=== PATIENT | female | born 1955 | race Caucasian/White ===

== ENCOUNTER 2016-07-20 01:42 | Inpatient (IN) ==
[2016-07-20] MEDS ORDERED: Naloxone 0.4 MG/ML INJ IVP PRN (05:30)
[2016-07-20] MEDS ORDERED: Lacri-Lube 3.5 GM TUBE BOTH EYES PRN (05:32)
[2016-07-20] MEDS ORDERED: Dextrose Gel 15 GM PO PRN ×2 (05:37)
[2016-07-20] MEDS ORDERED: D5% in Water 1,000 ML IV PRN (05:37)
[2016-07-20] MEDS ORDERED: *HR* Dextrose 50 % in Water (Syg) 50 ML SYRINGE IVP PRN (05:37)
--- NOTE | 2016-07-20 05:42 | Internal Med History&Physical ---
Date of Encounter: 07/20/16 Time of Encounter: 05:15 Assessment and Plan (1) Acute respiratory failure Current visit: Yes Status: Acute Requiring endotracheal intubation and mechanical ventilation. Admit to ICU. Consult intensive care team for vent management and ICU management. Acute respiratory failure likely due to pneumonia given patient's fever on presentation. High risk for complications. Sedation with propofol. Qualifiers: Respiratory failure complication: hypoxia Qualified Code(s): J96.01 - Acute respiratory failure with hypoxia (2) Sepsis Current visit: Yes Status: Suspected Patient with severe sepsis likely from pneumonia. Lactic acid elevated. Continue IV antibiotics. Follow blood cultures. Sepsis protocol. Qualifiers: Sepsis type: Pneumococcus Qualified Code(s): A40.3 - Sepsis due to Streptococcus pneumoniae (3) Diabetes mellitus type 2 in obese Current visit: Yes Status: Chronic With elevated blood sugars. Monitor blood sugars every 4 hours. Patient will be nothing by mouth and this time. Sliding-scale insulin. (4) Community acquired pneumonia Current visit: Yes Status: Acute Continue IV antibiotics. Will check respiratory infection panel. We will also send sputum for culture if any obtained. (5) Hypothyroidism Current visit: Yes Status: Chronic Continue levothyroxine Qualifiers: Hypothyroidism type: other Qualified Code(s): E03.8 - Other specified hypothyroidism (6) Hypertension Current visit: Yes Status: Chronic Blood pressure is currently elevated. We will resume home medications. If persistently greater than 160 mmHg, will use intravenous hydralazine to control blood pressure. Qualifiers: Hypertension type: essential hypertension Qualified Code(s): I10 - Essential (primary) hypertension (7) DVT prophylaxis Current visit: Yes Status: Acute With subcutaneous Lovenox Internal Medicine - H&P: HPI Chief complaint: Shortness of breath Admitted From: Emergency Dept Plans for Post Hospital Care: Transfer Halfway Facility History of present illness: Ms. Estevez is a 61 year old female with history of hypertension, hyperlipidemia , diabetes mellitus type 2 who presented to the ER at [place] with complaints of shortness of breath. She was given breathing treatments but her condition did not improve when such she was intubated. She is currently intubated and sedated and unable to answer questions. As such, history has been obtained through review of the ED records. The patient has apparently been having cough and sputum production and was prescribed antibiotics after a visit to the emergency department last week. She did not complain of any chest pain but had worsening of her shortness of breath yesterday evening and so she called EMS and went to the ER. It does not appear that patient has history of any previously diagnosed lung disease but was being evaluated for obstructive sleep apnea. Initial set of vitals in the ER showed a temperature of 100.1, heart rate of 126 /m, respiratory rate of 42/m, blood pressure 165/72 Past Med Surg Social Fam HX - Past Medical History Medical history: cancer, diabetes, hyperlipidemia, hypertension, renal disease, thyroid disease Psychiatric history: no psych history - Past Surgical History Surgical History: colectomy, colostomy, pacemaker/AICD, thyroidectomy - Social History Smoking Status: Former smoker Alcohol use: none Drug use: none Internal Medicine - H&P: Meds Allopurinol [Zyloprim] 100 mg PO DAILY 04/19/16 [History] Aspirin 81 mg PO DAILY 04/19/16 [History] Citalopram Hydrobromide [Celexa] 40 mg PO DAILY 04/19/16 [History] Doxazosin [Cardura] 1 mg PO HS 04/19/16 [History] Furosemide [Lasix] 20 mg PO DAILY 04/19/16 [History] Gabapentin [Neurontin] 800 mg PO TID 04/19/16 [History] Insulin Human Regular [HumuLIN R] 45 unit SQ QID 04/19/16 [History] Levothyroxine [Synthroid] 150 mcg PO DAILY 04/19/16 [History] Metoprolol [Lopressor] 25 mg PO BID 04/19/16 [History] Multivitamin [One Daily Essential] 1 each PO DAILY 04/19/16 [History] Vitamin B Complex Vit C No.4 [Super B Complex] 150 mg PO DAILY 04/19/16 [History ] Vitamin E Acid Succinate [Vitamin E] 400 units PO DAILY 04/19/16 [History] D-Methorphan Hb/P-Epd HCl/Bpm [Bromfed Dm Cough Syrup] 10 ml PO 3-4XD PRN #120 syrup 07/18/16 [Rx] Allergies Penicillins Allergy (Verified 05/21/16 21:55) Hives doxycycline Adverse Reaction (Verified 05/21/16 21:55) Vomiting ROS unobtainable: due to endotracheal tube All Systems PM: A 10-system review of systems was performed and is negative for pertinent findings except as documented above in the HPI. Review of systems: Patient is currently somnolent and sedated and accurate complete review of systems is unable to be obtained at this time - Respiratory Respiratory: dyspnea - Constitutional Vitals: Temp Pulse Resp BP Pulse Ox 98.9 F 83 15 153/67 100 07/20/16 05:00 07/20/16 05:00 07/20/16 05:00 07/20/16 05:00 07/20/16 05:00 General appearance: Present: A&O X 0, obese, severe distress Exam: Patient is currently intubated and sedated - ENT Additional comments: ET tube and OG tube in place - Respiratory Respiratory exam: Present: prolonged expiratory phase. Absent: accessory muscle use, rales, rhonchi, wheezes Additional comments: Coarse breath sounds bilaterally - Cardiovascular Cardiovascular exam: Present: RRR, +S1, +S2. Absent: diastolic murmur, gallop, rubs, systolic murmur - GI/Abdominal GI/Abdominal exam: Present: normal bowel sounds, soft, no peritoneal signs. Absent: distended, tenderness Additional comments: Colostomy bag in place - Extremities Exam Extremities exam: Present: warm, radial pulses palpable and symetrical. Absent : calf tenderness, cyanotic, pedal edema - Neurological Exam Neurological exam: Present: CN II-XII intact, oriented X3, no focal deficits. Absent: pronater drift, facial droop, speech deficit - Skin Skin exam: Present: dry, intact Internal Med - H&P Results - Labs Labs: WBC 10.9, hemoglobin 11, platelets 290, sodium 141, lactic acid 2.3, BUN 14, creatinine 0.94 - Impressions Chest x-ray shows cardiomegaly. No infiltrates concerning for pneumonia/ pulmonary edema - Attending Attestation This document has been at least partially created by [employer] recognition technology by Dr. Ferguson. Errors in grammar, wording or other phrases may exist. If errors are found after the documentation is signed, they will be addressed individually in the addendum section of this document when appropriate. Critical Care Time Critical Care Time: Yes Total Critical Care Time: 35 Attestation: This patient has a high probability of sudden, clinically significant deterioration, which requires the highest level of physician preparedness to intervene urgently. I managed/supervised life or organ supporting interventions that required frequent physician assessment. I devoted my full attention to the direct care of this patient for the amount of time indicated below. Time I spent with family or surrogate(s) is included only if the patient was incapable of providing the necessary information or participating in medical decision-making.
[2016-07-20] MEDS: 0.9 % Sodium Chloride 1,000 ML IVC SCH ×2 (05:48→10:09)
[2016-07-20 06:03] LABS: Basophils % 0.1 %; Hematocrit 36.1 % (35.3-44.9); Hemoglobin 10.5 g/dL (11.5-15.4); Immature Granulocytes % 0.4 % (0-4); Lymphocytes # 0.4 K/mcL (0.6-4.6); Lymphocytes % 3.2 %; Mean Corpuscular HGB Conc 29.1 g/dL (31.6-35.5); Mean Corpuscular Hemoglobin 25.6 pg (28.0-33.3); Mean Platelet Volume 9.1 fL (9.4-12.4); Monocytes # 0.4 K/mcL (0.0-1.3); Monocytes % 2.9 %; Neutrophils # 11.9 K/mcL (1.6-8.9); Platelet Count 262 K/mcL (140-400); Red Cell Distribution Width 15.9 % (11.5-14.5); Segmented Neutrophils % 93.4 %
[2016-07-20 06:19] LABS: ABG Base Excess 5.2 mEq/L (-2.0 to 3.0); ABG HCO3 33.5 mEQ/L (21-27); ABG Oxygen Saturation 96 % (95-98); ABG PCO2 68 mmHg (35-45); ABG PO2 92 mmHg (85-104); ABG TCO2 35.6 mEq/L (20-26)
[2016-07-20 06:27] LABS: BUN/Creatinine Ratio 15 (6-26); Blood Urea Nitrogen 15 mg/dL (7-20); Calcium 8.8 mg/dL (8.6-10.8); Carbon Dioxide 24 mEq/L (19-29); Chloride 101 mEq/L (98-109); Glucose 260 mg/dL (70-99); Osmolality,Calculated 294 (280-300); Potassium 4.8 mEq/L (3.5-4.5); Sodium 137 mEq/L (136-145); eGFR For African Americans > 60 (> 60); eGFR For Non-African Americans 56 (> 60)
[2016-07-20 06:28] LABS: Blood Gas FiO2 50 %
[2016-07-20] MEDS ORDERED: *HR* Enoxaparin 40 MG/0.4 ML SYRINGE SQ SCH (06:56)
[2016-07-20] MEDS ORDERED: Insulin LISPRO 300 UNITS/3 ML VIAL SQ SCH ×4 (07:30→21:00)
--- NOTE | 2016-07-20 08:01 | Pulmonology Consult Note ---
<Chencho Hernandez - Last Filed: 07/20/16 11:33> Date of Encounter: 07/20/16 Time of Encounter: 07:40 Assessment and Plan (1) Acute respiratory failure Current Visit: Yes Status: Acute ARF likely 2/2 to CAP and influenza virus. Continue IV antibiotic -Levaquin (d1) Continue Tamiflu (d1) Sputum culture pending Respiratory viral panel - influenza A positive Qualifiers: Respiratory failure complication: hypoxia Qualified Code(s): J96.01 - Acute respiratory failure with hypoxia (2) Community acquired pneumonia Current Visit: Yes Status: Acute See plan above. (3) Influenza A Current Visit: Yes Status: Acute Positive for Influenza A subtype H3. Started Tamiflu. (4) Diabetes mellitus type 2 in obese Current Visit: Yes Status: Chronic BG running in the 200-300s. Accuchecks Q1 Initiated Insulin drip. (5) Hypertension Current Visit: Yes Status: Chronic Improving SBP 153->128 Lopressor 25mg BID Hydralazine 10mg Q6H prn Qualifiers: Hypertension type: essential hypertension Qualified Code(s): I10 - Essential (primary) hypertension (6) Hypothyroidism Current Visit: Yes Status: Chronic Hx of thyroidectomy Levothyroxine 150mcg daily Qualifiers: Hypothyroidism type: other Qualified Code(s): E03.8 - Other specified hypothyroidism (7) DVT prophylaxis Current Visit: Yes Status: Acute Lovenox 40mg daily History of Present Illness Consult date: 07/20/16 Requesting physician: Reggie Ferguson Reason for consult: dyspnea, pneumonia Chief complaint: Dyspnea History of present illness: Ms. Estevez is a 61 year old female with history of hypertension, hyperlipidemia , diabetes mellitus type 2 who presented to the ER at [place] on 07/18/16 and with complaints of shortness of breath. The patient was reported to have been having yellow sputum production; no chest pain but had worsening shortness of breath warranting her to EMS. Patient did not respond with Duonebs and dyspnea continued to worsen, patient was intubated prior to transfer. She is currently intubated and sedated and unable to answer questions. As such, history has been obtained through review of the ED records. Of note, patient's mother is inpatient currently and would be available if needed for additional history. Past Med Surg Social Fam HX - Past Medical History Source: old records reviewed Medical history: cancer, diabetes, hyperlipidemia, hypertension, renal disease, thyroid disease Psychiatric history: no psych history - Past Surgical History Surgical History: colectomy, colostomy, pacemaker/AICD, thyroidectomy - Social History Smoking Status: Former smoker Alcohol use: none Drug use: none Medications and Allergies Allopurinol [Zyloprim] 100 mg PO DAILY 04/19/16 [History] Aspirin 81 mg PO DAILY 04/19/16 [History] Citalopram Hydrobromide [Celexa] 40 mg PO DAILY 04/19/16 [History] Doxazosin [Cardura] 1 mg PO HS 04/19/16 [History] Furosemide [Lasix] 20 mg PO DAILY 04/19/16 [History] Gabapentin [Neurontin] 800 mg PO TID 04/19/16 [History] Insulin Human Regular [HumuLIN R] 45 unit SQ QID 04/19/16 [History] Levothyroxine [Synthroid] 150 mcg PO DAILY 04/19/16 [History] Metoprolol [Lopressor] 25 mg PO BID 04/19/16 [History] Multivitamin [One Daily Essential] 1 each PO DAILY 04/19/16 [History] Vitamin B Complex Vit C No.4 [Super B Complex] 150 mg PO DAILY 04/19/16 [History ] Vitamin E Acid Succinate [Vitamin E] 400 units PO DAILY 04/19/16 [History] D-Methorphan Hb/P-Epd HCl/Bpm [Bromfed Dm Cough Syrup] 10 ml PO 3-4XD PRN #120 syrup 07/18/16 [Rx] Atorvastatin [Lipitor] 40 mg PO HS 07/20/16 [History] Allergies Penicillins Allergy (Verified 05/21/16 21:55) Hives doxycycline Adverse Reaction (Verified 05/21/16 21:55) Vomiting ROS unobtainable: due to endotracheal tube All Systems: A 10-system review of systems was performed and is negative for pertinent findings except as documented above in the HPI. Physical Examination Vital Signs: Vital Signs, Last 4 Hours Temp Pulse Resp BP Pulse Ox 07/20/16 06:20 16 98 07/20/16 06:00 78 15 152/71 98 07/20/16 05:00 98.9 F 83 15 153/67 100 07/20/16 04:39 21 99 07/20/16 04:30 98.9 F 92 16 153/69 99 General appearance: no acute distress, other (sedated) Eyes: nonicteric ENT: oropharynx moist Neck: supple Effort: other (mechanical ventilation) Inspection: normal Auscultation: bilateral: rhonchi (coarse breath sounds bilaterally) Cardiovascular: other (distant heart sounds) Gastrointestinal: normoactive bowel sounds, soft, non-tender, non-distended, other (Left sided colostomy with minimal brown stool present in bag.) Integumentary: normal Extremities: no cyanosis, no edema, no clubbing, pink and warm, pulses normal ( capillary refill <2 sec) Musculoskeletal: no deformities unable to assess due to mental status (sedated on mechanical vent) Ventilator Settings Ventilator Settings: Ventilator Settings, Last 8 Hours Ventilator Mode VC+ Ventilator Mode VC+ Ventilator Mode VC+ Ventilator Mode VC+ Ventilator Tidal Volume 500 Setting Ventilator Tidal Volume 500 Setting Ventilator Tidal Volume 500 Setting Ventilator Tidal Volume 500 Setting Ventilator Respiratory Rate 12 Setting Ventilator Respiratory Rate 12 Setting Ventilator Respiratory Rate 12 Setting Ventilator Respiratory Rate 12 Setting Actual Respiratory Rate 16 Actual Respiratory Rate 16 Actual Respiratory Rate 16 Positive End Expiratory 5 Pressure Positive End Expiratory 5 Pressure Positive End Expiratory 5 Pressure Positive End Expiratory 5 Pressure Peak Inspiratory Airway 31 Pressure Peak Inspiratory Airway 35 Pressure Peak Inspiratory Airway 35 Pressure Results - Laboratory Findings CBC and BMP: 07/20/16 05:48 07/20/16 05:48 ABG ABG pH 7.30 pH Units (7.32-7.45) L 07/20/16 06:11 ABG pCO2 68 mmHg (35-45) H 07/20/16 06:11 ABG pO2 92 mmHg (85-104) 07/20/16 06:11 ABG O2 Saturation 96 % (95-98) 07/20/16 06:11 Abnormal lab findings: Abnormal lab results WBC 12.7 K/mcL (4.3-11.1) H 07/20/16 05:48 Hgb 10.5 g/dL (11.5-15.4) L 07/20/16 05:48 MCH 25.6 pg (28.0-33.3) L 07/20/16 05:48 MCHC 29.1 g/dL (31.6-35.5) L 07/20/16 05:48 RDW 15.9 % (11.5-14.5) H 07/20/16 05:48 MPV 9.1 fL (9.4-12.4) L 07/20/16 05:48 Neutrophils # 11.9 K/mcL (1.6-8.9) H 07/20/16 05:48 Lymphocytes # 0.4 K/mcL (0.6-4.6) L 07/20/16 05:48 ABG pH 7.30 pH Units (7.32-7.45) L 07/20/16 06:11 ABG pCO2 68 mmHg (35-45) H 07/20/16 06:11 ABG HCO3 33.5 mEQ/L (21-27) H 07/20/16 06:11 ABG Total CO2 35.6 mEq/L (20-26) H 07/20/16 06:11 ABG Base Excess 5.2 mEq/L (-2.0 to 3.0) H 07/20/16 06:11 Potassium 4.8 mEq/L (3.5-4.5) H 07/20/16 05:48 Est GFR (Non-Af Amer) 56 (> 60) L 07/20/16 05:48 Glucose 260 mg/dL (70-99) H 07/20/16 05:48 POC Glucose 310 (58-89) H 07/20/16 07:51 - Clinical Findings Intake & Output: Intake & Output 07/19/16 07/19/16 07/20/16 15:59 23:59 07:59 Intake Total 100 / 100 Output Total 300 / 300 Balance -200 / -200 Weight 139.4 kg Consult Discharge Plan - Plan Referrals: Cedric Orlando, [employer] FURNACE INSTALLER [Primary Care Provider] - <Vijaya Verma - Last Filed: 07/20/16 12:36> Date of Encounter: 07/20/16 All Systems: A 10-system review of systems was performed and is negative for pertinent findings except as documented above in the HPI. Physical Examination Vital Signs: Vital Signs, Last 4 Hours Temp Pulse Resp BP Pulse Ox 07/20/16 11:24 98 F 07/20/16 11:23 14 120/51 99 07/20/16 10:30 57 15 117/51 100 07/20/16 09:30 62 15 120/52 99 Ventilator Settings Ventilator Settings: Ventilator Settings, Last 8 Hours Ventilator Mode VC+ Ventilator Mode VC+ Ventilator Mode VC+ Ventilator Mode VC+ Ventilator Mode VC+ Ventilator Mode VC+ Ventilator Tidal Volume 500 Setting Ventilator Tidal Volume 500 Setting Ventilator Tidal Volume 500 Setting Ventilator Tidal Volume 500 Setting Ventilator Tidal Volume 500 Setting Ventilator Tidal Volume 500 Setting Ventilator Respiratory Rate 14 Setting Ventilator Respiratory Rate 14 Setting Ventilator Respiratory Rate 14 Setting Ventilator Respiratory Rate 12 Setting Ventilator Respiratory Rate 12 Setting Ventilator Respiratory Rate 12 Setting Actual Respiratory Rate 14 Actual Respiratory Rate 15 Actual Respiratory Rate 16 Actual Respiratory Rate 16 Actual Respiratory Rate 16 Positive End Expiratory 5 Pressure Positive End Expiratory 5 Pressure Positive End Expiratory 5 Pressure Positive End Expiratory 5 Pressure Positive End Expiratory 5 Pressure Positive End Expiratory 5 Pressure Peak Inspiratory Airway 33 Pressure Peak Inspiratory Airway 32 Pressure Peak Inspiratory Airway 30 Pressure Peak Inspiratory Airway 33 Pressure Peak Inspiratory Airway 33 Pressure Peak Inspiratory Airway 34 Pressure Peak Inspiratory Airway 31 Pressure Peak Inspiratory Airway 35 Pressure Results - Laboratory Findings CBC and BMP: 07/20/16 05:48 07/20/16 05:48 ABG ABG pH 7.30 pH Units (7.32-7.45) L 07/20/16 06:11 ABG pCO2 68 mmHg (35-45) H 07/20/16 06:11 ABG pO2 92 mmHg (85-104) 07/20/16 06:11 ABG O2 Saturation 96 % (95-98) 07/20/16 06:11 Abnormal lab findings: Abnormal lab results WBC 12.7 K/mcL (4.3-11.1) H 07/20/16 05:48 Hgb 10.5 g/dL (11.5-15.4) L 07/20/16 05:48 MCH 25.6 pg (28.0-33.3) L 07/20/16 05:48 MCHC 29.1 g/dL (31.6-35.5) L 07/20/16 05:48 RDW 15.9 % (11.5-14.5) H 07/20/16 05:48 MPV 9.1 fL (9.4-12.4) L 07/20/16 05:48 Neutrophils # 11.9 K/mcL (1.6-8.9) H 07/20/16 05:48 Lymphocytes # 0.4 K/mcL (0.6-4.6) L 07/20/16 05:48 ABG pH 7.30 pH Units (7.32-7.45) L 07/20/16 06:11 ABG pCO2 68 mmHg (35-45) H 07/20/16 06:11 ABG HCO3 33.5 mEQ/L (21-27) H 07/20/16 06:11 ABG Total CO2 35.6 mEq/L (20-26) H 07/20/16 06:11 ABG Base Excess 5.2 mEq/L (-2.0 to 3.0) H 07/20/16 06:11 Potassium 4.8 mEq/L (3.5-4.5) H 07/20/16 05:48 Est GFR (Non-Af Amer) 56 (> 60) L 07/20/16 05:48 Glucose 260 mg/dL (70-99) H 07/20/16 05:48 POC Glucose 331 (58-89) H 07/20/16 11:22 Influenza A (H3) PCR DETECTED (Not Detect) A 07/20/16 08:20 - Clinical Findings Intake & Output: Intake & Output 07/19/16 07/20/16 07/20/16 23:59 07:59 15:59 Intake Total 100 / 100 560 / 560 Output Total 300 / 300 150 / 150 Balance -200 / -200 410 / 410 Weight 139.4 kg - Attending Attestation I examined this patient and my medical decision-making was reviewed with the POWERHOUSE LABORER/PA/Advanced Practice Nurse/Resident Physician. I agree with the documented findings, disposition and treatment plan as described except to the extent set forth below. Patient seen and examined. Labs, radiology, chart personally reviewed. 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 Wean off FIO2 and ordered respiratory panel which showed influenza positive and suspect also with component of pulmonary edema. Patient will remain on the vent today and hopefully can do SBT in next 1-2 days depend on the progress. Patient will ve on VC+ vent mode for more comfort and follow up on the ABG. Cardiovascular: Patient has significant cardiac history and if patient does not have recent echocardiogram was ordered it and check cardiac enzymes. GI: Nutrition per dietary and GI prophylaxis per routine Heme: DVT prophylaxis per routine ID: Continue antibiotics and plan to de-escalation. Patient will need Tamiflu treatment. Renal; urine out put and renal funtion reviewed. Diuresis as tolerated Endorcine: blood glucose is monitored. Start insulin drip for tight glycemic control Lines: all lines checked and no evidence of infections Skin: skin care to prevent pressure ulcers per nursing routine care I spent 35 min of Critical Care time with this patient. It involved decision making of high complexity to assess, manipulate, and support vital organ system failure and/or to prevent further life threatening deterioration of the patient' s condition. The time involved in the performance of separately reportable procedures was not counted toward critical care time.
[2016-07-20] MEDS: Levofloxacin 750 MG/150 ML 750 MG/150 ML BAG IVPB SCH (08:29)
[2016-07-20] MEDS: Aspirin 81 MG TAB.CHEW PO SCH (08:31)
[2016-07-20] MEDS: Chlorhexidine Rinse 15 ML MOUTHWASH MM SCH ×2 (08:31→20:13)
[2016-07-20] MEDS: Pantoprazole 40 MG VIAL IVPB SCH (08:31)
[2016-07-20] MEDS: Lacri-Lube 3.5 GM TUBE BOTH EYES SCH ×5 (08:45→22:20)
[2016-07-20 09:56] LABS: Adenovirus Not Detected (Not Detect); Bordetella Pertussis Not Detected (Not Detect); Chlamydophila pneumoniae Not Detected (Not Detect); Coronavirus 229E Not Detected (Not Detect); Coronavirus HKU1 Not Detected (Not Detect); Coronavirus NL63 Not Detected (Not Detect); Coronavirus OC43 Not Detected (Not Detect); Human Metapneumovirus Not Detected (Not Detect); Human Rhinovirus/Enterovirus Not Detected (Not Detect); Influenza A Subtype 2009 H1 Not Detected (Not Detect); Influenza A Untypeable Not Detected (Not Detect); Influenza B Not Detected (Not Detect); Mycoplasma pneumoniae Not Detected (Not Detect); Parainfluenza Virus 1 Not Detected (Not Detect); Parainfluenza Virus 2 Not Detected (Not Detect); Parainfluenza Virus 3 Not Detected (Not Detect); Parainfluenza Virus 4 Not Detected (Not Detect); Respiratory Syncytial Virus Not Detected (Not Detect)
[2016-07-20] MEDS: Insulin Human Regular 100 UNIT in 0.9 % Sodium Chloride 100 ML IVC SCH ×2 (13:05→20:32)
[2016-07-20] MEDS: Oseltamivir 6 MG/ML UDC PO SCH ×2 (14:22→20:54)
[2016-07-20] MEDS ORDERED: Furosemide 40 MG/4 ML VIAL IVP ONE (15:01)
--- NOTE | 2016-07-20 15:44 | Cardiology Consult Note ---
Date of Encounter: 07/20/16 Time of Encounter: 15:00 Assessment and Plan (1) Acute respiratory failure Current Visit: Yes Status: Acute Per cardiology: -Patient presented to [facility] with respiratory distress. Patient subsequently intubated and transferred to [facility]. -Currently intubated and sedated with diprivan drip. -Ventilator settings: CMV 14, TV 500, FiO2 45%, and PEEP 5. -SpO2 currently 99%. -Latest ABG: pH 7.3, pCO2 68, HCO3 33.5, pO2 92. -Management per primary service. -May be possible contributing factor to elevated troponin. (GOLDY) Qualifiers: Respiratory failure complication: hypoxia Qualified Code(s): J96.01 - Acute respiratory failure with hypoxia (2) Influenza A Current Visit: Yes Status: Acute Per cardiology: -Patient influenza positive. -Currently on tamiflu. -Currently intubated and sedated. -Management per primary service. -May be possible contributing factor to elevated troponin. (GOLDY) (3) Community acquired pneumonia Current Visit: Yes Status: Acute Per cardiology: -Chest x-ray with bilateral perihilar opacities. -On antibiotics. Currently intubated and sedated. -Managment per primary service. -May be contributing factor to elevated troponin. (GOLDY) (4) Elevated troponin Current Visit: Yes Status: Acute Per cardiology: -Troponin at [facility] noted to be 0.03. Most recent troponin 0.97. -BNP at [facility] 181, most recent 754. -Echocardiogram 06/11/16 LVEF 60-65%, moderate left ventricular hypertrophy, moderate left ventricular diastolic dysfunction, mild aortic stenosis with mean gradiant 14mmHG, sever pulmonary hypertension. -ECG with sinus rhythm, HR 61 with T wave inversion. -Will repeat troponin 6 hours after last troponin (ordered per primary service) -Will repeat limited echocardiogram (ordered per primary service) -Will change lovenox to weight based (ordered per primary service) -IV fluids stopped (ordered per primary service) -Further recommedations once repeat troponin and echocardiogram are resulted. ( GOLDY). Discussion w patient/family: The assessment and plan as outlined above was discussed with the patient and/or family members who expressed understanding and agreement. All questions were answered. Thank you for involving us in the care of your patient. Please call with any questions. Patient's mother is inpatient. Mother is next of kin for patient. Mother updated. Seen and examined with NAIN Brown. Discussed and reviewed with . History of Present Illness Consult date: 07/20/16 Requesting physician: Chencho Hernandez Consult reason: elevated troponin Chief complaint: shortness of breath History of present illness: Ms. Estevez is a 61 year old female who presented to [facility] ER with complaints of shortness of breath. While there, patient went into respiratory distress and was subsequently intubated and sent to [facility] ICU. Patient influenza A positive. Of note, patient's mother is currently hospitalized with influenza. Patient lives with her mother. Patient currently intubated and sedated. Patient arousable to tactile stimuli. (GOLDY) Past Med Surg Social Fam HX - Past Medical History Source: unable to obtain, old records reviewed, other (Unable to review with patient due to intubated and sedated. No family at bedside. ) Medical history: cancer, diabetes, hyperlipidemia, hypertension, renal disease, thyroid disease Psychiatric history: no psych history - Past Surgical History Surgical History: colectomy, colostomy, pacemaker/AICD, thyroidectomy - Social History Smoking Status: Former smoker Alcohol use: none Drug use: none Medications and Allergies Allopurinol [Zyloprim] 100 mg PO DAILY 04/19/16 [History] Aspirin 81 mg PO DAILY 04/19/16 [History] Citalopram Hydrobromide [Celexa] 40 mg PO DAILY 04/19/16 [History] Doxazosin [Cardura] 1 mg PO HS 04/19/16 [History] Furosemide [Lasix] 20 mg PO DAILY 04/19/16 [History] Gabapentin [Neurontin] 800 mg PO TID 04/19/16 [History] Insulin Human Regular [HumuLIN R] 45 unit SQ QID 04/19/16 [History] Levothyroxine [Synthroid] 150 mcg PO DAILY 04/19/16 [History] Metoprolol [Lopressor] 25 mg PO BID 04/19/16 [History] Multivitamin [One Daily Essential] 1 each PO DAILY 04/19/16 [History] Vitamin B Complex Vit C No.4 [Super B Complex] 150 mg PO DAILY 04/19/16 [History ] Vitamin E Acid Succinate [Vitamin E] 400 units PO DAILY 04/19/16 [History] D-Methorphan Hb/P-Epd HCl/Bpm [Bromfed Dm Cough Syrup] 10 ml PO 3-4XD PRN #120 syrup 07/18/16 [Rx] Atorvastatin [Lipitor] 40 mg PO HS 07/20/16 [History] Allergies Penicillins Allergy (Verified 05/21/16 21:55) Hives doxycycline Adverse Reaction (Verified 05/21/16 21:55) Vomiting ROS unobtainable: due to endotracheal tube, due to mental status (Sedated) All Systems Review: A 10-system review of systems was performed and is negative for pertinent findings except as documented above in the HPI. Physical Examination Vital Signs, Last 4 Hours Temp Pulse Resp BP Pulse Ox 07/20/16 15:30 98 F 07/20/16 15:15 56 14 151/78 99 07/20/16 14:20 56 15 132/60 99 07/20/16 13:56 14 127/55 9 L 07/20/16 13:15 58 14 119/84 99 07/20/16 12:30 54 14 123/53 100 Vital Signs Intake and Output Patient Weight 07/20/16 23:59 Weight 139.4 kg General: Other (Sedated) HEENT: Atraumatic, Normocephaly Neck: No JVD, Normal carotid pulses Cardiac: Reg Rate and Rhythm, Normal S1 and S2, No Murmur Lungs: Other (Rhonchi noted in bilateral lungs. Patient intubated. CMV 14, TV 500, FiO2 50%, PEEP 5. ) Neuro: Other (Sedated. Arousable to tactile stimuli. ) Abdomen: Soft Skin: No rashes noted on visualized skin Extremities: No Clubbing, No Cyanosis, Normal Pulses, Other (Mild bilateral non- pitting edema. ) Results 07/20/16 05:48 07/20/16 05:48 Lab Results 07/20/16 07/20/16 07/20/16 05:48 05:48 13:08 WBC 12.7 H Hgb 10.5 L Hct 36.1 Plt Count 262 Sodium 137 Potassium 4.8 H Chloride 101 Carbon Dioxide 24 BUN 15 Creatinine 1.01 Glucose 260 H Calcium 8.8 Troponin I 0.97 H* B-Natriuretic Peptide 07/20/16 13:08 WBC Hgb Hct Plt Count Sodium Potassium Chloride Carbon Dioxide BUN Creatinine Glucose Calcium Troponin I B-Natriuretic Peptide 754 H ITS Impressions Chest X-Ray 07/20/16 06:03 IMPRESSION: Pulmonary edema pattern without substantial change. D/ / Ben Esteves MD / Ben Esteves MD Interpreting Provider: Ben Esteves MD Active Medications Allopurinol (Zyloprim) 100 mg PO DAILY MERLE Stop: 01/19/17 09:01 Last Admin: 07/20/16 08:31 Dose: 100 mg Artificial Tears (Lacri-Lube) 1 appl BOTH EYES Q4HR MERLE PRN Reason: Protocol Stop: 01/19/17 08:01 Last Admin: 07/20/16 13:05 Dose: 1 appl Artificial Tears (Lacri-Lube) 1 appl BOTH EYES Q2HR PRN; Protocol PRN Reason: Dry Eyes Stop: 01/19/17 05:33 Aspirin (Aspirin) 81 mg PO DAILY MERLE Stop: 01/19/17 09:01 Last Admin: 07/20/16 08:31 Dose: 81 mg Chlorhexidine Gluconate (Chlorhexidine Rinse) 15 ml MM BID MERLE Stop: 01/19/17 09:01 Last Admin: 07/20/16 08:31 Dose: 15 ml Citalopram Hydrobromide (Celexa) 40 mg PO DAILY MERLE Stop: 01/19/17 09:01 Last Admin: 07/20/16 08:31 Dose: 40 mg Dextrose/Water (Dextrose 50% (Syg)) 25 ml IVP AD PRN PRN Reason: Hypoglycemia Stop: 01/19/17 05:38 Doxazosin Mesylate (Cardura) 1 mg PO HS MERLE Stop: 01/19/17 21:01 Enoxaparin Sodium (Lovenox) 140 mg SQ Q12HCO MERLE PRN Reason: Protocol Stop: 01/19/17 18:01 Glucagon (Glucagen) 1 mg IM ONCE PRN PRN Reason: Hypoglycemia Stop: 01/19/17 05:38 Glucose (Gluctose) 15 gm PO ONCE PRN PRN Reason: Hypoglycemia Stop: 01/19/17 05:38 Glucose (Gluctose) 30 gm PO ONCE PRN PRN Reason: Hypoglycemia Stop: 01/19/17 05:38 Hydralazine HCl (Hydralazine) 10 mg IVP Q6HR PRN PRN Reason: Hypertension Stop: 01/19/17 05:40 Dextrose (Dextrose 5%) 1,000 mls @ 100 mls/hr IV CONT PRN PRN Reason: HYPOGLYCEMIA Stop: 01/19/17 05:38 Propofol (Diprivan) 1,000 mg in 100 mls @ 33.456 mls/hr IVC .Q3H MERLE; 40 MCG/KG /MIN PRN Reason: Protocol Stop: 01/19/17 05:46 Last Admin: 07/20/16 13:15 Dose: 40 mcg/kg/min, 33.456 mls/hr Levofloxacin/Dextrose (Levaquin 750mg/150 Ml) 750 mg in 150 mls @ 100 mls/hr IVPB DAILY MERLE PRN Reason: Protocol Stop: 01/19/17 09:01 Last Admin: 07/20/16 08:29 Dose: 100 mls/hr Insulin Human Regular 100 unit (/ Sodium Chloride) 101 mls @ 7.87 mls/hr IVC CONT MERLE; 7.8 UNIT/HR PRN Reason: Protocol Stop: 01/19/17 11:31 Last Titration: 07/20/16 15:22 Dose: 12.2 unit/hr, 12.32 mls/hr Levothyroxine Sodium (Synthroid) 150 mcg PO DAILY MERLE Stop: 01/19/17 09:01 Last Admin: 07/20/16 08:31 Dose: 150 mcg Metoprolol Tartrate (Lopressor) 25 mg PO BID MERLE Stop: 01/19/17 09:01 Last Admin: 07/20/16 08:31 Dose: 25 mg Naloxone HCl (Narcan) 0.4 mg IVP Q2MIN PRN PRN Reason: Opioid Reversal Stop: 01/19/17 05:31 Oseltamivir Phosphate (Tamiflu Susp) 75 mg PO BID [facility] Stop: 07/24/16 21:01 Last Admin: 07/20/16 14:22 Dose: 75 mg Pantoprazole Sodium (Protonix) 40 mg IVPB DAILY MERLE Stop: 01/19/17 09:01 Last Admin: 07/20/16 08:31 Dose: 40 mg - Imaging and Cardiology Chest Xray: report reviewed Echo: pending - EKG Interpretation EKG results cardiology: personally reviewed (ECG with sinus rhythm, HR 60. T wave inversions noted.), other (Telemetry reviewed with average heart rate 65, paced rhythm. Occasional PVCs noted.) Consult Discharge Plan - Plan Referrals: Cedric Orlando, NAIN [Primary Care Provider] -
[2016-07-20] MEDS ORDERED: Perflutren Lipid Microsphere 1.3 ML in 0.9 % Sodium Chloride 8.7 ML IVP ONE (16:41)
[2016-07-20] MEDS: *HR* Enoxaparin 150 MG/ML SYRINGE SQ SCH (17:38)
--- NOTE | 2016-07-20 20:46 | ECHO - Doppler Report ---
Limited Echo with Imaging Enhancement Agent Name: Anjali Estevez Date of Study: 07/20/2016 Date: 1955 Ht: 68.0 in Medical Record#: [id number] Age: 61 Wt: 307.0 lb Gender: Female BSA: 2.45 Order #: [id number] Location: [facility] Room #: IC10 Reading Physician: Rolan Graves MD, [facility] Carton Marker Machine: Mame Woody RVT Ordering Physician: Adan Verdin DO Primary Physician: Bri Orlando CNP Indications: ACS, Heart function Impressions: LVEF 60-65%. Mild concentric left ventricular hypertrophy. Left Ventricular Wall Motion: Rest Echo Findings All wall segments showed normal motion. Findings: Aorta * Normally sized aortic root. Pericardium * The pericardium appears normal. Left Ventricle * Mild concentric left ventricular hypertrophy. * LVEF 60-65%. ECG Findings * Normal sinus rhythm. Left Atrium * Moderately dilated left atrium. Interatrial Septum * Interatrial septum not well evaluated. Right Atrium * Right atrium is not well visualized. Study Quality * Technically sub-optimal due to body habitus. History Hypertension Diabetes History of CAD/PTCA Congestive Heart Failure Pacer/ICD Implant Valvular Disease 06-11-16 a Previous Echo was performed. Contrast: Definity 1.3 ml in 8.7 ml of saline 2 ml. Measurements: BP: 151/ 78 2D Normal Values RVIDd: 3.40 cm <2.7 cm IVSd: 1.60 cm 0.6 - 1.0 cm LVIDd: 4.90 cm 3.7 - 5.6 cm LVPWd: 1.50 cm 0.6 - 1.1 cm LVIDs: 3.40 cm 1.5 - 3.6 cm AO: 2.90 cm < 4.0 cm LA: 4.80 cm 2.0 - 4.0cm %FS: 30.60 cm >25 % LA volume: Updated by Rolan Graves MD, [facility] on 07/20/2016 8:36:51 PM electronically signed on 07/20/2016 8:42:52 PM with status of Final Wall Motion Garcia: 1=Normal, 2=Hypokinesis, 3=Akinesis, 4=Dyskinesis, 5=Aneurysmal, 6=Hyperkinetic, X=Not Visualized (Blank)=Missing
[2016-07-21 02:40] LABS: Basophils % 0.1 %; Hematocrit 32.1 % (35.3-44.9); Hemoglobin 9.6 g/dL (11.5-15.4); Immature Granulocytes % 0.4 % (0-4); Immature Platelets 1.6 % (1.1-6.1); Lymphocytes # 0.9 K/mcL (0.6-4.6); Lymphocytes % 7.1 %; Mean Corpuscular HGB Conc 29.9 g/dL (31.6-35.5); Mean Platelet Volume 9.2 fL (9.4-12.4); Monocytes # 0.7 K/mcL (0.0-1.3); Monocytes % 6.2 %; Neutrophils # 10.3 K/mcL (1.6-8.9); Platelet Count 268 K/mcL (140-400); Red Blood Count 3.69 M/mcL (3.82-4.97); Red Cell Distribution Width 15.9 % (11.5-14.5); Segmented Neutrophils % 86.2 %
[2016-07-21 02:50] LABS: BUN/Creatinine Ratio 27 (6-26); Blood Urea Nitrogen 23 mg/dL (7-20); Calcium 8.7 mg/dL (8.6-10.8); Carbon Dioxide 28 mEq/L (19-29); Chloride 103 mEq/L (98-109); Glucose 153 mg/dL (70-99); Osmolality,Calculated 297 (280-300); Potassium 4.1 mEq/L (3.5-4.5); Sodium 140 mEq/L (136-145); eGFR For African Americans > 60 (> 60); eGFR For Non-African Americans > 60 (> 60)
[2016-07-21] MEDS: Lacri-Lube 3.5 GM TUBE BOTH EYES SCH ×5 (03:24→20:06)
[2016-07-21] MEDS: *HR* Enoxaparin 150 MG/ML SYRINGE SQ SCH ×2 (04:52→18:04)
[2016-07-21 05:18] LABS: ABG Base Excess 9.9 mEq/L (-2.0 to 3.0); ABG HCO3 36.5 mEQ/L (21-27); ABG Oxygen Saturation 99 % (95-98); ABG PCO2 59 mmHg (35-45); ABG PO2 118 mmHg (85-104); ABG TCO2 38.3 mEq/L (20-26); Blood Gas FiO2 45 %
[2016-07-21] MEDS ORDERED: Ipratropium/Albuterol Neb 3 ML ONE (08:38)
[2016-07-21] MEDS: Ipratropium/Albuterol Neb 3 ML IH SCH ×4 (08:39→20:31)
--- NOTE | 2016-07-21 08:53 | Pulmonology Progress Note ---
<Vijaya Verma M - Last Filed: 07/21/16 10:35> Date of Encounter: 07/21/16 Objective PUL Vital signs: Last Vital Signs Temp 99.8 F H 07/21/16 07:10 Pulse 72 07/21/16 07:30 Resp 27 07/21/16 09:46 BP 149/62 07/21/16 08:05 Pulse Ox 96 07/21/16 09:46 Ventilator Settings Ventilator Settings: Ventilator Settings, Last 8 Hours Ventilator Mode CPAP Ventilator Mode CPAP Ventilator Mode VC+ Ventilator Mode VC+ Ventilator Mode VC+ Ventilator Mode VC+ Ventilator Mode VC+ Ventilator Mode VC+ Ventilator Mode VC+ Ventilator Mode VC+ Ventilator Tidal Volume 500 Setting Ventilator Tidal Volume 500 Setting Ventilator Tidal Volume 500 Setting Ventilator Tidal Volume 500 Setting Ventilator Tidal Volume 500 Setting Ventilator Tidal Volume 500 Setting Ventilator Tidal Volume 500 Setting Ventilator Tidal Volume 500 Setting Ventilator Tidal Volume 500 Setting Ventilator Respiratory Rate 14 Setting Ventilator Respiratory Rate 14 Setting Ventilator Respiratory Rate 14 Setting Ventilator Respiratory Rate 14 Setting Ventilator Respiratory Rate 14 Setting Ventilator Respiratory Rate 14 Setting Ventilator Respiratory Rate 14 Setting Ventilator Respiratory Rate 14 Setting Actual Respiratory Rate 26 Actual Respiratory Rate 29 Actual Respiratory Rate 17 Actual Respiratory Rate 14 Actual Respiratory Rate 15 Actual Respiratory Rate 14 Actual Respiratory Rate 14 Actual Respiratory Rate 14 Positive End Expiratory 5 Pressure Positive End Expiratory 5 Pressure Positive End Expiratory 5 Pressure Positive End Expiratory 5 Pressure Positive End Expiratory 5 Pressure Positive End Expiratory 5 Pressure Positive End Expiratory 5 Pressure Positive End Expiratory 5 Pressure Positive End Expiratory 5 Pressure Positive End Expiratory 5 Pressure Peak Inspiratory Airway 11 Pressure Peak Inspiratory Airway 11 Pressure Peak Inspiratory Airway 33 Pressure Peak Inspiratory Airway 33 Pressure Peak Inspiratory Airway 34 Pressure Peak Inspiratory Airway 33 Pressure Peak Inspiratory Airway 33 Pressure Peak Inspiratory Airway 34 Pressure Results - Laboratory Findings CBC and BMP: 07/21/16 02:29 07/21/16 02:29 ABG ABG pH 7.40 pH Units (7.32-7.45) 07/21/16 05:09 ABG pCO2 59 mmHg (35-45) H 07/21/16 05:09 ABG pO2 118 mmHg (85-104) H 07/21/16 05:09 ABG O2 Saturation 99 % (95-98) H 07/21/16 05:09 Abnormal lab findings: Abnormal lab results WBC 12.0 K/mcL (4.3-11.1) H 07/21/16 02:29 RBC 3.69 M/mcL (3.82-4.97) L 07/21/16 02:29 Hgb 9.6 g/dL (11.5-15.4) L 07/21/16 02:29 Hct 32.1 % (35.3-44.9) L 07/21/16 02:29 MCH 26.0 pg (28.0-33.3) L 07/21/16 02:29 MCHC 29.9 g/dL (31.6-35.5) L 07/21/16 02:29 RDW 15.9 % (11.5-14.5) H 07/21/16 02:29 MPV 9.2 fL (9.4-12.4) L 07/21/16 02:29 Neutrophils # 10.3 K/mcL (1.6-8.9) H 07/21/16 02:29 ABG pCO2 59 mmHg (35-45) H 07/21/16 05:09 ABG pO2 118 mmHg (85-104) H 07/21/16 05:09 ABG HCO3 36.5 mEQ/L (21-27) H 07/21/16 05:09 ABG Total CO2 38.3 mEq/L (20-26) H 07/21/16 05:09 ABG O2 Saturation 99 % (95-98) H 07/21/16 05:09 ABG Base Excess 9.9 mEq/L (-2.0 to 3.0) H 07/21/16 05:09 BUN 23 mg/dL (7-20) H 07/21/16 02:29 BUN/Creatinine Ratio 27 (6-26) H 07/21/16 02:29 Glucose 153 mg/dL (70-99) H 07/21/16 02:29 POC Glucose 134 (58-89) H 07/21/16 09:45 Troponin I 0.90 ng/mL (0-0.03) H* 07/20/16 18:45 B-Natriuretic Peptide 754 pg/mL (0-100) H 07/20/16 13:08 Influenza A (H3) PCR DETECTED (Not Detect) A 07/20/16 08:20 - Clinical Findings Intake & Output: Intake & Output 07/20/16 07/21/16 07/21/16 23:59 07:59 15:59 Intake Total 417.5 / 417.5 560 / 560 12.8 / 12.8 Output Total 1450 / 1450 450 / 450 Balance -1032.5 / -1032.5 110 / 110 12.8 / 12.8 Weight 136.9 kg Consult Discharge Plan - Plan Referrals: Cedric Orlando CNP [Primary Care Provider] - - Attending Attestation I examined this patient and my medical decision-making was reviewed with the DIGITAL MARKETING LEAD/PA/Advanced Practice Nurse/Resident Physician. I agree with the documented findings, disposition and treatment plan as described except to the extent set forth below. Patient seen and examined. Labs, radiology, chart personally reviewed. Agree with resident's history and physical, assessment, plan with following comments: SALES PERSON: Patient follows commands, Pulmonary: Acceptable oxygenation and ventilation. Patient successfully extubated. Cardiovascular: stable. Appreciate cardiology's input. GI: Nutrition per dietary and GI prophylaxis per routine Heme: DVT prophylaxis per routine ID: Continue antibiotics and plan to de-escalation Renal; urine out put and renal funtion reviewed Endorcine: blood glucose is monitored Lines: all lines checked and no evidence of infections Skin: skin care to prevent pressure ulcers per nursing routine care <Rito Mckinney - Last Filed: 07/21/16 10:45> Date of Encounter: 07/21/16 Time of Encounter: 08:51 Assessment and Plan (1) Acute respiratory failure with hypoxia Current Visit: Yes Status: Acute Patient was extubated this morning without complication. She is oxygenating well s/p extubation on 4 L 02. She is influenza A positive by serology. Her acute respiratory failure is likely secondary to an influenza a. There is concern for the possibility of a bacterial co-infection. She was initially found how elevated troponin's: 0.03, 0.97, 0.90. Echocardiogram revealed moderate diastolic dysfunction. BNP of 754. Patient states that she has a history of heart failure. I suspect are elevated troponin 's are secondary to heart failure in the setting of an acute respiratory illness. Will be NPO after midnight for possible stress test or left heart cath tomorrow. She has a cardiac pacer which was placed for bradycardia. Respiratory failure secondary to influenza and possible bacterial co-infection: -Tamiflu(day 2) -Levaquin (Day 2) -respiratory panel positive for influenza A (H3) -bronchodilators -sputum culture pending -blood cultures no growth to date -nasopharyngeal influenza swabs negative diabetes: -Accu checks Q1 -insulin drip hypertension: -Lopressor 25 mg BID, hydralazine 10 mg Q6H PRN hypothyroidism: -levothyroxine 150 mcg daily prophylaxis: -weight-based Lovenox per ACS protocol -Protonix (2) Sepsis Current Visit: Yes Status: Suspected Still meets criteria for sepsis with tachypnea and a mild leukocytosis. Serology revealed influenza a by PCR. Qualifiers: Sepsis type: sepsis due to unspecified organism Qualified Code(s): A41.9 - Sepsis, unspecified organism (3) CAP (community acquired pneumonia) Current Visit: Yes Status: Suspected (4) Elevated troponin Current Visit: Yes Status: Acute (5) Cardiac pacemaker Current Visit: No Status: Chronic (6) Influenza A Current Visit: Yes Status: Acute (7) Diabetes mellitus type 2 in obese Current Visit: Yes Status: Chronic (8) Hypertension Current Visit: Yes Status: Chronic Qualifiers: Hypertension type: essential hypertension Qualified Code(s): I10 - Essential (primary) hypertension (9) Hypothyroidism Current Visit: Yes Status: Chronic Qualifiers: Hypothyroidism type: other Qualified Code(s): E03.8 - Other specified hypothyroidism (10) Diastolic heart failure Current Visit: Yes Status: Chronic Qualifiers: Heart failure chronicity: unspecified heart failure chronicity Qualified Code(s): I50.30 - Unspecified diastolic (congestive) heart failure (11) DVT prophylaxis Current Visit: Yes Status: Acute Subjective Principal diagnosis: Repiratory distress Interval history: Patient seen and examined at bedside She is currently intubated, or she is undergoing CPAP trial this morning and if weaning parameters are acceptable she will be extubated. Upon interview she did note that she did not have a flu vaccine this year. She denies any pain. Objective PUL Vital signs: Last Vital Signs Temp 99.8 F H 07/21/16 07:10 Pulse 72 07/21/16 07:30 Resp 29 07/21/16 07:30 BP 149/62 07/21/16 07:30 Pulse Ox 98 07/21/16 07:30 General appearance: no acute distress Eyes: nonicteric ENT: oropharynx dry Neck: supple Effort: normal Auscultation: bilateral: rhonchi Cardiovascular: regular rate and rhythm Gastrointestinal: normoactive bowel sounds Integumentary: normal Extremities: no edema, no clubbing, pink and warm normal mental status, non-focal exam Ventilator Settings Ventilator Settings: Ventilator Settings, Last 8 Hours Ventilator Mode CPAP Ventilator Mode VC+ Ventilator Mode VC+ Ventilator Mode VC+ Ventilator Mode VC+ Ventilator Mode VC+ Ventilator Mode VC+ Ventilator Mode VC+ Ventilator Mode VC+ Ventilator Mode VC+ Ventilator Mode VC+ Ventilator Tidal Volume 500 Setting Ventilator Tidal Volume 500 Setting Ventilator Tidal Volume 500 Setting Ventilator Tidal Volume 500 Setting Ventilator Tidal Volume 500 Setting Ventilator Tidal Volume 500 Setting Ventilator Tidal Volume 500 Setting Ventilator Tidal Volume 500 Setting Ventilator Tidal Volume 500 Setting Ventilator Tidal Volume 500 Setting Ventilator Tidal Volume 500 Setting Ventilator Respiratory Rate 14 Setting Ventilator Respiratory Rate 14 Setting Ventilator Respiratory Rate 14 Setting Ventilator Respiratory Rate 14 Setting Ventilator Respiratory Rate 14 Setting Ventilator Respiratory Rate 14 Setting Ventilator Respiratory Rate 14 Setting Ventilator Respiratory Rate 14 Setting Ventilator Respiratory Rate 14 Setting Ventilator Respiratory Rate 14 Setting Actual Respiratory Rate 29 Actual Respiratory Rate 17 Actual Respiratory Rate 14 Actual Respiratory Rate 15 Actual Respiratory Rate 14 Actual Respiratory Rate 14 Actual Respiratory Rate 14 Actual Respiratory Rate 14 Actual Respiratory Rate 14 Positive End Expiratory 5 Pressure Positive End Expiratory 5 Pressure Positive End Expiratory 5 Pressure Positive End Expiratory 5 Pressure Positive End Expiratory 5 Pressure Positive End Expiratory 5 Pressure Positive End Expiratory 5 Pressure Positive End Expiratory 5 Pressure Positive End Expiratory 5 Pressure Positive End Expiratory 5 Pressure Positive End Expiratory 5 Pressure Peak Inspiratory Airway 11 Pressure Peak Inspiratory Airway 33 Pressure Peak Inspiratory Airway 33 Pressure Peak Inspiratory Airway 34 Pressure Peak Inspiratory Airway 33 Pressure Peak Inspiratory Airway 33 Pressure Peak Inspiratory Airway 34 Pressure Peak Inspiratory Airway 33 Pressure Peak Inspiratory Airway 33 Pressure Results - Laboratory Findings CBC and BMP: 07/21/16 02:29 07/21/16 02:29 ABG ABG pH 7.40 pH Units (7.32-7.45) 07/21/16 05:09 ABG pCO2 59 mmHg (35-45) H 07/21/16 05:09 ABG pO2 118 mmHg (85-104) H 07/21/16 05:09 ABG O2 Saturation 99 % (95-98) H 07/21/16 05:09 Abnormal lab findings: Abnormal lab results WBC 12.0 K/mcL (4.3-11.1) H 07/21/16 02:29 RBC 3.69 M/mcL (3.82-4.97) L 07/21/16 02:29 Hgb 9.6 g/dL (11.5-15.4) L 07/21/16 02:29 Hct 32.1 % (35.3-44.9) L 07/21/16 02:29 MCH 26.0 pg (28.0-33.3) L 07/21/16 02:29 MCHC 29.9 g/dL (31.6-35.5) L 07/21/16 02:29 RDW 15.9 % (11.5-14.5) H 07/21/16 02:29 MPV 9.2 fL (9.4-12.4) L 07/21/16 02:29 Neutrophils # 10.3 K/mcL (1.6-8.9) H 07/21/16 02:29 ABG pCO2 59 mmHg (35-45) H 07/21/16 05:09 ABG pO2 118 mmHg (85-104) H 07/21/16 05:09 ABG HCO3 36.5 mEQ/L (21-27) H 07/21/16 05:09 ABG Total CO2 38.3 mEq/L (20-26) H 07/21/16 05:09 ABG O2 Saturation 99 % (95-98) H 07/21/16 05:09 ABG Base Excess 9.9 mEq/L (-2.0 to 3.0) H 07/21/16 05:09 BUN 23 mg/dL (7-20) H 07/21/16 02:29 BUN/Creatinine Ratio 27 (6-26) H 07/21/16 02:29 Glucose 153 mg/dL (70-99) H 07/21/16 02:29 POC Glucose 142 (58-89) H 07/21/16 07:10 Troponin I 0.90 ng/mL (0-0.03) H* 07/20/16 18:45 B-Natriuretic Peptide 754 pg/mL (0-100) H 07/20/16 13:08 Influenza A (H3) PCR DETECTED (Not Detect) A 07/20/16 08:20 - Clinical Findings Intake & Output: Intake & Output 07/20/16 07/21/16 07/21/16 23:59 07:59 15:59 Intake Total 417.5 / 417.5 554 / 554 Output Total 1450 / 1450 450 / 450 Balance -1032.5 / -1032.5 104 / 104 Weight 136.9 kg
[2016-07-21] MEDS: Aspirin 81 MG TAB.CHEW PO SCH (09:00)
[2016-07-21] MEDS: Pantoprazole 40 MG VIAL IVPB SCH (09:05)
[2016-07-21] MEDS: Levofloxacin 750 MG/150 ML 750 MG/150 ML BAG IVPB SCH (09:05)
--- NOTE | 2016-07-21 09:57 | Cardiology Progress Note ---
Date of Encounter: 07/21/16 Time of Encounter: 09:00 Assessment and Plan (1) Respiratory failure with hypercapnia Current Visit: Yes Status: Acute Per cardiology: -Patient with influenza A positive. -Required intubation. -Initial ABG with pH 7.3, pCO2 68. -Most recent ABG with pH 7.4, pCO2 59, pO2 118, HCO3 36.5. -CUrrently intubated on CPAP trial-- now extubated and stable (JT) -Management per primary service. -May be contributing factor to elevated troponin. (GOLDY). Qualifiers: Chronicity: acute Qualified Code(s): J96.02 - Acute respiratory failure with hypercapnia (2) Influenza A Current Visit: Yes Status: Acute Per cardiology: -Patient influenza positive. -Currently on tamiflu. -Management per primary service. -May be possible contributing factor to elevated troponin. (GOLDY) (3) Elevated troponin Current Visit: Yes Status: Acute Per cardiology: -Troponin at [place] noted to be 0.03. Troponin 0.97 then 0.90 at [place]. -BNP at [place] 181, most recent 754. -Echocardiogram 06/11/16 LVEF 60-65%, moderate left ventricular hypertrophy, moderate left ventricular diastolic dysfunction, mild aortic stenosis with mean gradiant 14mmHG, sever pulmonary hypertension. -Echocardiogram 07/20/16 with LVEF 60-65%, mild left ventricular hypertrophy, all wall segments with normal motion. -ECG with sinus rhythm, HR 61 with T wave inversion. -On asa, beta wanda, and therapeutic lovenox. -Will make NPO after midnight for possible stress test in AM if clinically stable vs outpatient stress test once clinically improved. Had pending outpatient stress. Will continue to follow. (GOLDY). Discussion w patient/family: The assessment and plan as outlined above was discussed with the patient and/or family members who expressed understanding and agreement. All questions were answered. Thank you for involving us in the care of your patient. Please call with any questions. Patient's mother is inpatient. Mother is next of kin for patient. Mother updated. Seen and examined with NAIN Brown. Discussed and reviewed with Subjective Principal diagnosis: Repiratory distress Interval history: is a 61 year old female who presented to [place] ER with complaints of shortness of breath. At [place], patient went into respiratory distress and was intubated. Pateint was transferred to [place] ICU. Patient noted to be influenza A positive. Currently remains intubated. Currently on CPAP trial Troponins noted to be elevated and cardiology was consulted. (GOLDY) Patient reevaluated and now extubated and clinical stable. She denies any chest pain. Reports had pending stress test ordered as outpatient by Dr. Mckinney with cardiology. (JT) Objective Vital Signs, Last 4 Hours Temp Pulse Resp BP Pulse Ox 07/21/16 09:46 27 96 07/21/16 08:05 26 149/62 98 07/21/16 07:30 68 29 149/62 98 07/21/16 07:10 99.8 F H 07/21/16 06:12 17 149/54 99 07/21/16 06:00 98.4 F 68 16 145/61 98 Active Medications Albuterol/Ipratropium (Duoneb) 3 ml IH [id number] MERLE PRN Reason: Protocol Stop: 01/20/17 08:46 Allopurinol (Zyloprim) 100 mg PO DAILY MERLE Stop: 01/19/17 09:01 Last Admin: 07/21/16 09:09 Dose: 100 mg Artificial Tears (Lacri-Lube) 1 appl BOTH EYES Q4HR MERLE PRN Reason: Protocol Stop: 01/19/17 08:01 Last Admin: 07/21/16 03:24 Dose: 1 appl Artificial Tears (Lacri-Lube) 1 appl BOTH EYES Q2HR PRN; Protocol PRN Reason: Dry Eyes Stop: 01/19/17 05:33 Aspirin (Aspirin) 81 mg PO DAILY MERLE Stop: 01/19/17 09:01 Last Admin: 07/21/16 09:00 Dose: 81 mg Chlorhexidine Gluconate (Chlorhexidine Rinse) 15 ml MM BID MERLE Stop: 01/19/17 09:01 Last Admin: 07/20/16 20:13 Dose: 15 ml Citalopram Hydrobromide (Celexa) 40 mg PO DAILY MERLE Stop: 01/19/17 09:01 Last Admin: 07/21/16 09:00 Dose: 40 mg Dextrose/Water (Dextrose 50% (Syg)) 25 ml IVP AD PRN PRN Reason: Hypoglycemia Stop: 01/19/17 05:38 Doxazosin Mesylate (Cardura) 1 mg PO HS EMRLE Stop: 01/19/17 21:01 Last Admin: 07/20/16 20:13 Dose: 1 mg Enoxaparin Sodium (Lovenox) 140 mg SQ Q12HCO MERLE PRN Reason: Protocol Stop: 01/19/17 18:01 Last Admin: 07/21/16 04:52 Dose: 140 mg Glucagon (Glucagen) 1 mg IM ONCE PRN PRN Reason: Hypoglycemia Stop: 01/19/17 05:38 Glucose (Gluctose) 15 gm PO ONCE PRN PRN Reason: Hypoglycemia Stop: 01/19/17 05:38 Glucose (Gluctose) 30 gm PO ONCE PRN PRN Reason: Hypoglycemia Stop: 01/19/17 05:38 Hydralazine HCl (Hydralazine) 10 mg IVP Q6HR PRN PRN Reason: Hypertension Stop: 01/19/17 05:40 Dextrose (Dextrose 5%) 1,000 mls @ 100 mls/hr IV CONT PRN PRN Reason: HYPOGLYCEMIA Stop: 01/19/17 05:38 Propofol (Diprivan) 1,000 mg in 100 mls @ 33.456 mls/hr IVC .Q3H MERLE; 40 MCG/KG /MIN PRN Reason: Protocol Stop: 01/19/17 05:46 Last Admin: 07/21/16 05:31 Dose: 45 mcg/kg/min, 37.638 mls/hr Levofloxacin/Dextrose (Levaquin 750mg/150 Ml) 750 mg in 150 mls @ 100 mls/hr IVPB DAILY MERLE PRN Reason: Protocol Stop: 01/19/17 09:01 Last Admin: 07/21/16 09:05 Dose: 100 mls/hr Insulin Human Regular 100 unit (/ Sodium Chloride) 101 mls @ 7.87 mls/hr IVC CONT MERLE; 7.8 UNIT/HR PRN Reason: Protocol Stop: 01/19/17 11:31 Last Titration: 07/21/16 09:30 Dose: 5.14 unit/hr, 5.2 mls/hr Levothyroxine Sodium (Synthroid) 150 mcg PO DAILY MERLE Stop: 01/19/17 09:01 Last Admin: 07/21/16 09:00 Dose: 150 mcg Metoprolol Tartrate (Lopressor) 25 mg PO BID MERLE Stop: 01/19/17 09:01 Last Admin: 07/21/16 09:00 Dose: 25 mg Naloxone HCl (Narcan) 0.4 mg IVP Q2MIN PRN PRN Reason: Opioid Reversal Stop: 01/19/17 05:31 Oseltamivir Phosphate (Tamiflu Susp) 75 mg PO BID [facility] Stop: 07/24/16 21:01 Last Admin: 07/20/16 20:54 Dose: 75 mg Pantoprazole Sodium (Protonix) 40 mg IVPB DAILY [facility] Stop: 01/19/17 09:01 Last Admin: 07/21/16 09:05 Dose: 40 mg General: Other (Intubated, awake. On CPAP trial. ) Neck: No JVD, Normal carotid pulses Cardiac: Reg Rate and Rhythm, Normal S1 and S2, No Murmur Lungs: Other (Rhonchi noted throughout) Neuro: Alert and responsive, Other (Intubated, but awake on CPAP trial. ) Abdomen: Soft, Non-Tender Skin: No rashes noted on visualized skin Musculoskeletal: No Chest Wall Tenderness Extremities: No Clubbing, No Cyanosis, Normal Pulses, Other (Mild bilateral nonn -pitting edmea. ) Results 07/21/16 02:29 07/21/16 02:29 Lab Results 07/20/16 07/20/16 07/20/16 13:08 13:08 18:45 WBC Hgb Hct Plt Count Sodium Potassium Chloride Carbon Dioxide BUN Creatinine Glucose Calcium Troponin I 0.97 H* 0.90 H* B-Natriuretic Peptide 754 H 07/21/16 07/21/16 02:29 02:29 WBC 12.0 H Hgb 9.6 L Hct 32.1 L Plt Count 268 Sodium 140 Potassium 4.1 Chloride 103 Carbon Dioxide 28 BUN 23 H Creatinine 0.85 Glucose 153 H Calcium 8.7 Troponin I B-Natriuretic Peptide - Imaging and Cardiology Chest Xray: report reviewed - EKG Interpretation EKG results cardiology: personally reviewed (ECG with sinus rhythm at 62. T wave inversions noted.), other (Telemetry reviewed with average heart rate 61, sinus rhythm. Some intermiitent pacing noted. Occasional PVCs and PACs noted.) Consult Discharge Plan - Plan Referrals: Cedric Orlando, MARSH BUGGY OPERATOR [Primary Care Provider] -
[2016-07-21] MEDS: Chlorhexidine Rinse 15 ML MOUTHWASH MM SCH ×2 (10:20→20:05)
[2016-07-21] MEDS: Oseltamivir 6 MG/ML UDC PO SCH ×2 (10:24→20:05)
[2016-07-21] MEDS: Ondansetron 4 MG/2 ML VIAL IVP PRN (10:39)
[2016-07-21] MEDS: Insulin Human Regular 100 UNIT in 0.9 % Sodium Chloride 100 ML IVC SCH (11:23)
[2016-07-21] MEDS ORDERED: *HR* FentaNYL (PF) 100 MCG/2 ML VIAL IVP ONE (14:19)
[2016-07-21] MEDS: Acetaminophen 325 MG TABLET PO PRN (20:17)
[2016-07-21] MEDS ORDERED: Melatonin 3 MG TABLET PO SCH (23:15)
[2016-07-22] MEDS: Lacri-Lube 3.5 GM TUBE BOTH EYES SCH ×3 (00:02→08:13)
[2016-07-22] MEDS: Ipratropium/Albuterol Neb 3 ML IH SCH ×6 (00:49→20:04)
[2016-07-22 06:07] LABS: Basophils % 0.3 %; Eosinophils % 0.1 %; Hematocrit 34.4 % (35.3-44.9); Hemoglobin 10.1 g/dL (11.5-15.4); Immature Granulocytes % 0.5 % (0-4); Lymphocytes # 1.2 K/mcL (0.6-4.6); Lymphocytes % 14.3 %; Mean Corpuscular HGB Conc 29.4 g/dL (31.6-35.5); Mean Corpuscular Hemoglobin 25.8 pg (28.0-33.3); Mean Corpuscular Volume 87.8 fL (83.0-100.0); Mean Platelet Volume 9.3 fL (9.4-12.4); Monocytes # 0.5 K/mcL (0.0-1.3); Neutrophils # 6.8 K/mcL (1.6-8.9); Platelet Count 238 K/mcL (140-400); Red Blood Count 3.92 M/mcL (3.82-4.97); Segmented Neutrophils % 78.8 %
[2016-07-22] MEDS: *HR* Enoxaparin 150 MG/ML SYRINGE SQ SCH (06:21)
[2016-07-22 06:22] LABS: Carbon Dioxide 28 mEq/L (19-29); Chloride 104 mEq/L (98-109); Potassium 4.1 mEq/L (3.5-4.5); Sodium 142 mEq/L (136-145)
[2016-07-22 06:23] LABS: BUN/Creatinine Ratio 28 (6-26); Blood Urea Nitrogen 22 mg/dL (7-20); Calcium 8.9 mg/dL (8.6-10.8); Glucose 158 mg/dL (70-99); Osmolality,Calculated 301 (280-300); eGFR For African Americans > 60 (> 60); eGFR For Non-African Americans > 60 (> 60)
[2016-07-22] MEDS: Aspirin 81 MG TAB.CHEW PO SCH (08:10)
[2016-07-22] MEDS: Oseltamivir 6 MG/ML UDC PO SCH (08:10)
[2016-07-22] MEDS: Pantoprazole 40 MG VIAL IVPB SCH (08:10)
[2016-07-22] MEDS: Ondansetron 4 MG/2 ML VIAL IVP PRN ×3 (08:10→19:39)
[2016-07-22] MEDS: Levofloxacin 750 MG/150 ML 750 MG/150 ML BAG IVPB SCH (08:11)
[2016-07-22] MEDS: Chlorhexidine Rinse 15 ML MOUTHWASH MM SCH ×2 (09:07→20:38)
--- NOTE | 2016-07-22 10:10 | Pulmonology Progress Note ---
<Vijaya Vrema M - Last Filed: 07/22/16 12:10> Date of Encounter: 07/22/16 Objective PUL Vital signs: Last Vital Signs Temp 98.2 F 07/22/16 08:00 Pulse 97 07/22/16 11:00 Resp 18 07/22/16 11:22 BP 167/70 07/22/16 11:00 Pulse Ox 95 07/22/16 11:22 Results - Laboratory Findings CBC and BMP: 07/22/16 05:52 07/22/16 05:52 ABG ABG pH 7.40 pH Units (7.32-7.45) 07/21/16 05:09 ABG pCO2 59 mmHg (35-45) H 07/21/16 05:09 ABG pO2 118 mmHg (85-104) H 07/21/16 05:09 ABG O2 Saturation 99 % (95-98) H 07/21/16 05:09 Abnormal lab findings: Abnormal lab results Hgb 10.1 g/dL (11.5-15.4) L 07/22/16 05:52 Hct 34.4 % (35.3-44.9) L 07/22/16 05:52 MCH 25.8 pg (28.0-33.3) L 07/22/16 05:52 MCHC 29.4 g/dL (31.6-35.5) L 07/22/16 05:52 RDW 16.0 % (11.5-14.5) H 07/22/16 05:52 MPV 9.3 fL (9.4-12.4) L 07/22/16 05:52 ABG pCO2 59 mmHg (35-45) H 07/21/16 05:09 ABG pO2 118 mmHg (85-104) H 07/21/16 05:09 ABG HCO3 36.5 mEQ/L (21-27) H 07/21/16 05:09 ABG Total CO2 38.3 mEq/L (20-26) H 07/21/16 05:09 ABG O2 Saturation 99 % (95-98) H 07/21/16 05:09 ABG Base Excess 9.9 mEq/L (-2.0 to 3.0) H 07/21/16 05:09 BUN 22 mg/dL (7-20) H 07/22/16 05:52 BUN/Creatinine Ratio 28 (6-26) H 07/22/16 05:52 Glucose 158 mg/dL (70-99) H 07/22/16 05:52 POC Glucose 161 (58-89) H 07/22/16 10:50 Calculated Osmolality 301 (280-300) H 07/22/16 05:52 Troponin I 0.90 ng/mL (0-0.03) H* 07/20/16 18:45 B-Natriuretic Peptide 754 pg/mL (0-100) H 07/20/16 13:08 Influenza A (H3) PCR DETECTED (Not Detect) A 07/20/16 08:20 - Microbiology Findings Microbiology Findings: Microbiology, Last 48 Hours 07/21/16 22:11 Sputum Culture - Preliminary Sputum - Clinical Findings Intake & Output: Intake & Output 07/21/16 07/22/16 07/22/16 23:59 07:59 15:59 Intake Total 17.8 / 17.8 15.3 / 15.3 156.2 / 156.2 Output Total 775 / 775 425 / 425 Balance -757.2 / -757.2 -409.7 / -409.7 156.2 / 156.2 Weight 135.2 kg Consult Discharge Plan - Plan Referrals: Cedric Orlando ACCOUNTING SYSTEM EXPERT [Primary Care Provider] - - Attending Attestation I examined this patient and my medical decision-making was reviewed with the BOTANY TEACHER/PA/Advanced Practice Nurse/Resident Physician. I agree with the documented findings, disposition and treatment plan as described except to the extent set forth below. Patient seen and examined. Labs, radiology, chart personally reviewed. Agree with resident's history and physical, assessment, plan with following comments: APARTMENT LEASING CONSULTANT: Patient follows commands, Insomnia, will try Restrol tonight, suspect this is due to mental condition such as anxiety. Pulmonary: Acceptable oxygenation and ventilation Cardiovascular: stable and cardiology follow up. Patient has HTN, will increase Metoprolol and add her home Lasix GI: Nutrition per dietary and GI prophylaxis per routine Heme: DVT prophylaxis per routine. Change full dose Lovenox to low dose for DVT prophylaxis. ID: Continue antibiotics and plan to de-escalation Renal; urine out put and renal funtion reviewed Endorcine: blood glucose is monitored. Changed her IV insulin to subcutaneous. Lines: all lines checked and no evidence of infections Skin: skin care to prevent pressure ulcers per nursing routine care When bed available to 2N, she can be transferred out <Chencho Hernandez - Last Filed: 07/22/16 13:22> Date of Encounter: 07/22/16 Time of Encounter: 09:45 Assessment and Plan (1) Acute respiratory failure Current Visit: Yes Status: Inactive Acute resp failure with hypoxia, secondary to influenza and possible bacterial co-infection. Patient was extubated yesterday without complication. She is oxygenating well s /p extubation on 4 L 02. She is influenza A positive by serology. There is concern for the possibility of a bacterial co-infection. Found to have elevated troponin's: 0.03, 0.97, 0.90. Echocardiogram revealed moderate diastolic dysfunction. BNP of 754. Patient states that she has a history of heart failure. I suspect are elevated troponin's are secondary to heart failure in the setting of an acute respiratory illness. Cardiology not planning for further intervention at this time; plan for outpatient heart catheterization. She has a cardiac pacer which was placed for bradycardia. Plan: -Tamiflu(day 3) -Levaquin (Day 3) -respiratory panel positive for influenza A (H3) -bronchodilators -sputum culture pending -blood cultures no growth to date -nasopharyngeal influenza swabs negative Qualifiers: Respiratory failure complication: hypoxia Qualified Code(s): J96.01 - Acute respiratory failure with hypoxia (2) Influenza A Current Visit: Yes Status: Acute See plan above (3) Diabetes mellitus type 2 in obese Current Visit: Yes Status: Chronic Insulin drip discontinued, Levemir 20 units BID and moderate intensity sliding scale insulin. Accu-checks ACHS (4) Hypertension Current Visit: Yes Status: Chronic Lopressor increase of 50mg BID, hydralazine PRN for hypertension given one time PRN dose Lopressor for hypertension Qualifiers: Hypertension type: essential hypertension Qualified Code(s): I10 - Essential (primary) hypertension (5) Hypothyroidism Current Visit: Yes Status: Chronic Continue levothyroxine 150 mcg daily Qualifiers: Hypothyroidism type: other Qualified Code(s): E03.8 - Other specified hypothyroidism (6) DVT prophylaxis Current Visit: Yes Status: Acute Weight-based Lovenox for ACS protocol discontinued. Started DVT prophylactic heparin 5000 units Q 12 hours APARTMENT LEASING CONSULTANT: Patient follows commands, Pulmonary: Acceptable oxygenation and ventilation. Cardiovascular: stable. Appreciate cardiology's input. GI: Nutrition per dietary(cardiac/ADA) and GI prophylaxis per routine-Protonix Heme: DVT prophylaxis per routine ID: Continue antibiotics and plan to de-escalation Renal: urine output and renal function reviewed Endocrine: blood glucose is monitored. Insulin discontinued, subcutaneous started Lines: all lines checked and no evidence of infections Skin: skin care to prevent pressure ulcers per nursing routine care Subjective Principal diagnosis: Repiratory distress Interval history: Patient seen and examined at bedside. Patient extubated yesterday. Currently denies any distress, also denies any appetite. Afebrile. Objective PUL Vital signs: Last Vital Signs Temp 98.2 F 07/22/16 08:00 Pulse 82 07/22/16 09:00 Resp 18 07/22/16 09:00 BP 169/73 07/22/16 09:00 Pulse Ox 96 07/22/16 09:00 General appearance: no acute distress Eyes: nonicteric ENT: oropharynx moist Neck: supple Effort: normal Gastrointestinal: soft, non-tender Extremities: no cyanosis, no edema, no clubbing, pink and warm Musculoskeletal: no deformities normal mental status, non-focal exam mood appropriate, affect normal Results - Laboratory Findings CBC and BMP: 07/22/16 05:52 07/22/16 05:52 ABG ABG pH 7.40 pH Units (7.32-7.45) 07/21/16 05:09 ABG pCO2 59 mmHg (35-45) H 07/21/16 05:09 ABG pO2 118 mmHg (85-104) H 07/21/16 05:09 ABG O2 Saturation 99 % (95-98) H 07/21/16 05:09 Abnormal lab findings: Abnormal lab results Hgb 10.1 g/dL (11.5-15.4) L 07/22/16 05:52 Hct 34.4 % (35.3-44.9) L 07/22/16 05:52 MCH 25.8 pg (28.0-33.3) L 07/22/16 05:52 MCHC 29.4 g/dL (31.6-35.5) L 07/22/16 05:52 RDW 16.0 % (11.5-14.5) H 07/22/16 05:52 MPV 9.3 fL (9.4-12.4) L 07/22/16 05:52 ABG pCO2 59 mmHg (35-45) H 07/21/16 05:09 ABG pO2 118 mmHg (85-104) H 07/21/16 05:09 ABG HCO3 36.5 mEQ/L (21-27) H 07/21/16 05:09 ABG Total CO2 38.3 mEq/L (20-26) H 07/21/16 05:09 ABG O2 Saturation 99 % (95-98) H 07/21/16 05:09 ABG Base Excess 9.9 mEq/L (-2.0 to 3.0) H 07/21/16 05:09 BUN 22 mg/dL (7-20) H 07/22/16 05:52 BUN/Creatinine Ratio 28 (6-26) H 07/22/16 05:52 Glucose 158 mg/dL (70-99) H 07/22/16 05:52 POC Glucose 168 (58-89) H 07/22/16 08:52 Calculated Osmolality 301 (280-300) H 07/22/16 05:52 Troponin I 0.90 ng/mL (0-0.03) H* 07/20/16 18:45 B-Natriuretic Peptide 754 pg/mL (0-100) H 07/20/16 13:08 Influenza A (H3) PCR DETECTED (Not Detect) A 07/20/16 08:20 - Microbiology Findings Microbiology Findings: Microbiology, Last 48 Hours 07/21/16 22:11 Sputum Culture - Preliminary Sputum - Clinical Findings Intake & Output: Intake & Output 07/21/16 07/22/16 07/22/16 23:59 07:59 15:59 Intake Total 17.8 / 17.8 15.3 / 15.3 6.2 / 6.2 Output Total 775 / 775 425 / 425 Balance -757.2 / -757.2 -409.7 / -409.7 6.2 / 6.2 Weight 135.2 kg
[2016-07-22] MEDS ORDERED: Insulin Human Regular 100 UNIT in 0.9 % Sodium Chloride 100 ML IVC SCH (10:53)
[2016-07-22] MEDS ORDERED: Insulin DETEMIR 100 UNIT/ML X5UNITS SQ SCH ×2 (11:00→21:00)
--- NOTE | 2016-07-22 11:10 | Cardiology Progress Note ---
Date of Encounter: 07/22/16 Time of Encounter: 09:00 Assessment and Plan (1) Respiratory failure with hypercapnia Current Visit: Yes Status: Acute Per cardiology: -Patient with influenza A positive. -Required intubation. Currently extubated on nasal cannula -Initial ABG with pH 7.3, pCO2 68. -Most recent ABG with pH 7.4, pCO2 59, pO2 118, HCO3 36.5. -Management per primary service. -May be contributing factor to elevated troponin. (GOLDY). (2) Influenza A Current Visit: Yes Status: Acute Per cardiology: -Patient influenza positive. -Currently on tamiflu. -Management per primary service. -May be possible contributing factor to elevated troponin. (GOLDY) (3) Elevated troponin Current Visit: Yes Status: Acute Per cardiology: -Troponin at [place] noted to be 0.03. Troponin 0.97 then 0.90 at [place]. -BNP at [place] 181, most recent 754. -Echocardiogram 06/11/16 LVEF 60-65%, moderate left ventricular hypertrophy, moderate left ventricular diastolic dysfunction, mild aortic stenosis with mean gradiant 14mmHG, sever pulmonary hypertension. -Echocardiogram 07/20/16 with LVEF 60-65%, mild left ventricular hypertrophy, all wall segments with normal motion. -ECG with sinus rhythm, HR 61 with T wave inversion. -On asa, beta wanda, and therapeutic lovenox. -Suspect due to demand ischemia, however close outpatient follow up warranted. -Cardiology will sign off. -Will set up follow up as outpatient with cardiology. -Consider outpatient stress test. (GOLDY). Discussion w patient/family: The assessment and plan as outlined above was discussed with the patient and/or family members who expressed understanding and agreement. All questions were answered. Thank you for involving us in the care of your patient. Please call with any questions. Patient's mother is inpatient. Mother is next of kin for patient. Mother updated. Seen and examined with NAIN Brown. Discussed and reviewed with Subjective Principal diagnosis: Repiratory distress Interval history: is a 61 year old female who presented to [place] ER with complaints of shortness of breath. At [place], patient went into respiratory distress and was intubated. Pateint was transferred to [place] ICU. Patient noted to be influenza A positive. Currently extubated on nasal cannula. Troponins noted to be elevated and cardiology was consulted. Patient denies chest pain. Patient states she had a pending stress test as outpatient. (GOLDY) Objective Vital Signs, Last 4 Hours Temp Pulse Resp BP Pulse Ox 07/22/16 10:00 92 20 145/68 95 07/22/16 09:00 82 18 169/73 96 07/22/16 08:00 98.2 F 82 20 139/57 95 07/22/16 07:15 98.2 F General: Conversant, Other (Conversational dyspnea noted. ) HEENT: Atraumatic, Normocephaly, Mucus Membranes Moist Neck: No JVD, Normal carotid pulses Cardiac: Reg Rate and Rhythm, Normal S1 and S2, No Murmur Lungs: Other (Rhonchi noted throughout. ) Neuro: Alert and responsive, No focal deficits noted Abdomen: Soft, Non-Tender Skin: No rashes noted on visualized skin Musculoskeletal: No Chest Wall Tenderness Extremities: No Clubbing, No Cyanosis, Normal Pulses, Other (Mild bilateral, non -pitting edema. ) Results 07/22/16 05:52 07/22/16 05:52 Lab Results 07/22/16 07/22/16 05:52 05:52 WBC 8.6 Hgb 10.1 L Hct 34.4 L Plt Count 238 Sodium 142 Potassium 4.1 Chloride 104 Carbon Dioxide 28 BUN 22 H Creatinine 0.78 Glucose 158 H Calcium 8.9 - Imaging and Cardiology Chest Xray: report reviewed Echo: report reviewed - EKG Interpretation EKG results cardiology: personally reviewed (ECG with sinus rhythm, Heart rate 62, T wave inversion.), other (Telemetry reviewed with average heart rate 80. One episode of atrial tachycardia noted.) Consult Discharge Plan - Plan Referrals: Cedric Orlando, TONGUE CARRIER [Primary Care Provider] -
[2016-07-22] MEDS ORDERED: Temazepam 15 MG CAPSULE PO PRN (11:49)
[2016-07-22] MEDS ORDERED: Furosemide 20 MG TABLET PO SCH (12:00)
[2016-07-22] MEDS: Insulin LISPRO 300 UNITS/3 ML VIAL SQ SCH ×4 (12:51→20:38)
[2016-07-22] MEDS ORDERED: *HR* Metoprolol 5 MG/5 ML VIAL IVP ONE (13:13)
[2016-07-22] MEDS: Acetaminophen 325 MG TABLET PO PRN (13:59)
[2016-07-22] MEDS ORDERED: *HR* Dextrose 50 % in Water (Syg) 50 ML SYRINGE IVP PRN (16:12)
[2016-07-22] MEDS ORDERED: Naloxone 0.4 MG/ML INJ IVP PRN (16:12)
[2016-07-22] MEDS ORDERED: D5% in Water 1,000 ML IV PRN (16:12)
[2016-07-22] MEDS ORDERED: Acetaminophen 325 MG TABLET PO PRN (16:12)
[2016-07-22] MEDS ORDERED: Dextrose Gel 15 GM PO PRN ×2 (16:12)
[2016-07-22] MEDS: *HR* Heparin 5,000 UNIT/ML VIAL SQ SCH (16:58)
[2016-07-22] MEDS ORDERED: *HR* Heparin 5,000 UNIT/ML VIAL SQ SCH (18:00)
[2016-07-22] MEDS: Melatonin 3 MG TABLET PO SCH (20:37)
[2016-07-22] MEDS: Temazepam 15 MG CAPSULE PO PRN (20:37)
[2016-07-22] MEDS: Insulin DETEMIR 100 UNIT/ML X5UNITS SQ SCH (20:38)
[2016-07-22] MEDS ORDERED: Insulin LISPRO 300 UNITS/3 ML VIAL SQ SCH (21:00)
[2016-07-23] MEDS: Ipratropium/Albuterol Neb 3 ML IH SCH ×6 (00:02→19:32)
[2016-07-23 05:30] LABS: ABG Base Excess 9.8 mEq/L (-2.0 to 3.0); ABG HCO3 36.5 mEQ/L (21-27); ABG Oxygen Saturation 100 % (95-98); ABG PCO2 59 mmHg (35-45); ABG PO2 179 mmHg (85-104); ABG TCO2 38.3 mEq/L (20-26)
[2016-07-23 05:31] LABS: Blood Gas Liter Flow 3 L/MIN
[2016-07-23] MEDS: *HR* Heparin 5,000 UNIT/ML VIAL SQ SCH ×2 (06:16→16:40)
--- NOTE | 2016-07-23 07:00 | Electrocardiograph Report ---
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
--- NOTE | 2016-07-23 07:35 | Electrocardiograph Report ---
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
[2016-07-23] MEDS: Insulin LISPRO 300 UNITS/3 ML VIAL SQ SCH ×4 (08:22→21:31)
[2016-07-23] MEDS: Levofloxacin 750 MG/150 ML 750 MG/150 ML BAG IVPB SCH (08:28)
[2016-07-23] MEDS: Aspirin 81 MG TAB.CHEW PO SCH (08:29)
[2016-07-23] MEDS: Insulin DETEMIR 100 UNIT/ML X5UNITS SQ SCH ×2 (08:29→21:23)
[2016-07-23] MEDS: Chlorhexidine Rinse 15 ML MOUTHWASH MM SCH ×2 (08:29→21:20)
[2016-07-23] MEDS: Pantoprazole 40 MG VIAL IVPB SCH (08:29)
[2016-07-23] MEDS: Furosemide 20 MG TABLET PO SCH (08:30)
[2016-07-23] MEDS ORDERED: Furosemide 20 MG TABLET PO SCH (09:00)
--- NOTE | 2016-07-23 09:01 | Internal Med Progress Note ---
Date of Encounter: 07/23/16 Time of Encounter: 08:59 - Assessment and plan (1) Acute respiratory failure with hypoxia Current Visit: Yes Status: Acute Assessment and plan: Likely secondary to Influenza and possible bacterial co-infection Will continue Tamiflu for a total of 10 days (Day 08/27) Will continue Levaquin for a total of 5 days (Day 08/22) continue O2 supplementation as needed monitor O2 sat, goal O2 sat >92% bronchodilator support as needed PT eval patient encouraged to get out of bed to chair (2) Influenza A Current Visit: Yes Status: Acute Assessment and plan: Continue Tamiflu for a total of 10 days (Day 08/27) (3) Hypertension Current Visit: Yes Status: Chronic Assessment and plan: Noted to be have persistent hypertension Added Lisinopril 5mg PO Continue Metoprolol 50mg PO q12h Hydralazine PRN SBP>150 will continue to closely monitor BP Qualifiers: Hypertension type: essential hypertension Qualified Code(s): I10 - Essential (primary) hypertension (4) Diabetes mellitus type 2 in obese Current Visit: Yes Status: Chronic Assessment and plan: FS within acceptable range continue Levemir and sliding scale insulin continue to monitor fingerstick and blood glucose (5) Diastolic heart failure Current Visit: Yes Status: Chronic Assessment and plan: Not in acute exacerbation continue home medications Qualifiers: Heart failure chronicity: unspecified heart failure chronicity Qualified Code(s): I50.30 - Unspecified diastolic (congestive) heart failure (6) Hypothyroidism Current Visit: Yes Status: Chronic Assessment and plan: continue levothyroxine Qualifiers: Hypothyroidism type: unspecified Qualified Code(s): E03.9 - Hypothyroidism , unspecified (7) Morbid obesity with BMI of 40.0-44.9, adult Current Visit: Yes Status: Chronic (8) DVT prophylaxis Current Visit: Yes Status: Acute Assessment and plan: Heparin SQ (9) Elevated troponin Current Visit: Yes Status: Acute Assessment and plan: TNI trended down currently chest pain free likely secondary to demand ischemia Cardiology input noted, service signed off Outpatient follow up recommended for stress testing. - Subjective Interval history: Patient is a 61y/o female who was admitted to the ICU for acute respiratory failure requiring intubation secondary to influenza. Patient was extubated and transferred to on 07/23/16. Patient seen and examined at bedside. Resting comfortably in bed and states she feels better. Denies any chest pain or shortness of breath at this time. Currently saturating well on nasal cannula. - Constitutional Vitals: Temp Pulse Resp BP Pulse Ox 97.6 F 77 17 168/79 95 07/23/16 06:34 07/23/16 07:00 07/23/16 07:48 07/23/16 06:34 07/23/16 07:48 General appearance: Present: A&O X 0, A&O X 3, morbidly obese, no acute distress , obese, answers questions appropriately - Head Head exam: Present: atraumatic, normocephalic - Eye Eye exam: Present: normal appearance, conjuntiva pink, sclera anicteric - Respiratory Respiratory exam: Absent: respiratory distress, wheezes (equal air entry bilaterally) - Cardiovascular Cardiovascular exam: Present: RRR, +S1, +S2 - GI/Abdominal GI/Abdominal exam: Present: distended (obese, LLQ colostomy bag in place), normal bowel sounds, soft. Absent: tenderness - Extremities Exam Extremities exam: Present: pedal edema, warm, radial pulses palpable and symetrical. Absent: calf tenderness, tenderness - Neurological Exam Neurological exam: Present: alert, oriented X3 - Psychiatric Psychiatric exam: Present: normal affect, normal mood Internal Medicine: Result - Labs CBC & Chem 7: 07/22/16 05:52 07/22/16 05:52 - ABG Interpretation ABG results: ABG ABG pH 7.40 pH Units (7.32-7.45) 07/23/16 05:20 ABG pCO2 59 mmHg (35-45) H 07/23/16 05:20 ABG pO2 179 mmHg (85-104) H 07/23/16 05:20 ABG O2 Saturation 100 % (95-98) H 07/23/16 05:20 Consult Discharge Plan - Plan Referrals: Cedric Orlando CNP [Primary Care Provider] -
[2016-07-23] MEDS: Ondansetron 4 MG/2 ML VIAL IVP PRN (11:40)
[2016-07-23] MEDS: Melatonin 3 MG TABLET PO SCH (21:19)
[2016-07-23] MEDS: Temazepam 15 MG CAPSULE PO PRN (21:19)
[2016-07-23] MEDS: Gabapentin 400 MG CAPSULE PO SCH (23:16)
[2016-07-24] MEDS: Ipratropium/Albuterol Neb 3 ML IH SCH ×8 (00:37→23:59)
[2016-07-24 05:59] LABS: Basophils # 0.1 K/mcL (0.0-0.2); Basophils % 0.7 %; Eosinophils # 0.2 K/mcL (0.0-0.6); Eosinophils % 2.1 %; Hematocrit 34.5 % (35.3-44.9); Hemoglobin 10.2 g/dL (11.5-15.4); Immature Granulocytes % 1.4 % (0-4); Lymphocytes # 1.2 K/mcL (0.6-4.6); Lymphocytes % 17.1 %; Mean Corpuscular HGB Conc 29.6 g/dL (31.6-35.5); Mean Corpuscular Hemoglobin 25.6 pg (28.0-33.3); Mean Corpuscular Volume 86.5 fL (83.0-100.0); Mean Platelet Volume 9.4 fL (9.4-12.4); Monocytes # 0.7 K/mcL (0.0-1.3); Monocytes % 9.7 %; Neutrophils # 4.9 K/mcL (1.6-8.9); Platelet Count 278 K/mcL (140-400); Red Blood Count 3.99 M/mcL (3.82-4.97); Red Cell Distribution Width 15.5 % (11.5-14.5)
[2016-07-24 06:11] LABS: BUN/Creatinine Ratio 33 (6-26); Blood Urea Nitrogen 26 mg/dL (7-20); Calcium 9.6 mg/dL (8.6-10.8); Carbon Dioxide 33 mEq/L (19-29); Chloride 99 mEq/L (98-109); Glucose 142 mg/dL (70-99); Magnesium 1.5 mg/dL (1.6-2.6); Osmolality,Calculated 299 (280-300); Phosphorous 3.4 mg/dL (2.3-4.7); Potassium 3.8 mEq/L (3.5-4.5); Sodium 141 mEq/L (136-145); eGFR For African Americans > 60 (> 60); eGFR For Non-African Americans > 60 (> 60)
[2016-07-24 06:25] LABS: Platelet Estimate Normal (Normal); Reactive Lymphocytes Present (Not Present)
[2016-07-24] MEDS: *HR* Heparin 5,000 UNIT/ML VIAL SQ SCH ×2 (06:40→17:15)
[2016-07-24] MEDS ORDERED: Magnesium Sulfate 1 GM in D5% in Water 100 ML IVPB ONE (07:25)
[2016-07-24] MEDS: Furosemide 20 MG TABLET PO SCH (07:37)
[2016-07-24] MEDS: Pantoprazole 40 MG VIAL IVPB SCH (07:37)
[2016-07-24] MEDS: Gabapentin 400 MG CAPSULE PO SCH ×3 (07:37→21:10)
[2016-07-24] MEDS: Levofloxacin 750 MG/150 ML 750 MG/150 ML BAG IVPB SCH (07:38)
[2016-07-24] MEDS: Aspirin 81 MG TAB.CHEW PO SCH (07:38)
[2016-07-24] MEDS: Insulin LISPRO 300 UNITS/3 ML VIAL SQ SCH ×4 (07:50→21:07)
[2016-07-24] MEDS: Chlorhexidine Rinse 15 ML MOUTHWASH MM SCH ×2 (08:14→21:12)
[2016-07-24] MEDS: Insulin DETEMIR 100 UNIT/ML X5UNITS SQ SCH ×2 (08:17→21:28)
--- NOTE | 2016-07-24 10:39 | Internal Med Progress Note ---
Date of Encounter: 07/24/16 Time of Encounter: 10:37 - Assessment and plan (1) Acute respiratory failure with hypoxia Current Visit: Yes Status: Acute Assessment and plan: Likely secondary to Influenza and possible bacterial co-infection Will continue Tamiflu for a total of 10 days (Day 09/26) Will continue Levaquin for a total of 5 days (Day 09/21) continue O2 supplementation as needed monitor O2 sat, goal O2 sat >92% bronchodilator support as needed PT eval recommended SNF, social worker clinical consulted for rehab placement patient encouraged to get out of bed to chair 6minute walk test for home O2 qualification (2) Influenza A Current Visit: Yes Status: Acute Assessment and plan: Continue Tamiflu for a total of 10 days (Day 09/26) (3) Hypertension Current Visit: Yes Status: Chronic Assessment and plan: BP within acceptable range Continue Lisinopril 5mg PO Continue Metoprolol 50mg PO q12h Hydralazine PRN SBP>150 will continue to closely monitor BP Qualifiers: Hypertension type: essential hypertension Qualified Code(s): I10 - Essential (primary) hypertension (4) Diabetes mellitus type 2 in obese Current Visit: Yes Status: Chronic Assessment and plan: FS within acceptable range continue Levemir and sliding scale insulin continue to monitor fingerstick and blood glucose (5) Diastolic heart failure Current Visit: Yes Status: Chronic Assessment and plan: Not in acute exacerbation continue home medications Qualifiers: Heart failure chronicity: unspecified heart failure chronicity Qualified Code(s): I50.30 - Unspecified diastolic (congestive) heart failure (6) Hypothyroidism Current Visit: Yes Status: Chronic Assessment and plan: continue levothyroxine Qualifiers: Hypothyroidism type: unspecified Qualified Code(s): E03.9 - Hypothyroidism , unspecified (7) Morbid obesity with BMI of 40.0-44.9, adult Current Visit: Yes Status: Chronic (8) DVT prophylaxis Current Visit: Yes Status: Acute (9) Elevated troponin Current Visit: Yes Status: Acute Assessment and plan: TNI trended down currently chest pain free likely secondary to demand ischemia Cardiology input noted, service signed off Outpatient follow up recommended for stress testing. - Subjective Interval history: Patient is a 61y/o female who was admitted to the ICU for acute respiratory failure requiring intubation secondary to influenza. Patient was extubated and transferred to on 07/23/16. Patient seen and examined at bedside. Resting in chair, states she feels better , no acute distress reported at this time. Saturating well on nasal cannula, however states she is not on home oxygen. We will do O2 qualification testing today. - Constitutional Vitals: Temp Pulse Resp BP Pulse Ox 97.6 F 73 18 144/68 95 07/24/16 06:53 07/24/16 08:02 07/24/16 07:57 07/24/16 06:53 07/24/16 07:57 General appearance: Present: A&O X 3, morbidly obese, no acute distress, answers questions appropriately - Head Head exam: Present: atraumatic, normocephalic - Respiratory Respiratory exam: Present: CTAB. Absent: respiratory distress, wheezes - Cardiovascular Cardiovascular exam: Present: RRR, +S1, +S2. Absent: diastolic murmur, gallop, rubs, systolic murmur - GI/Abdominal GI/Abdominal exam: Present: normal bowel sounds, soft, no peritoneal signs ( colostomy bag in place). Absent: distended, tenderness - Extremities Exam Extremities exam: Present: pedal edema, warm, radial pulses palpable and symetrical. Absent: calf tenderness - Neurological Exam Neurological exam: Present: alert, oriented X3 - Psychiatric Psychiatric exam: Present: normal affect, normal mood Internal Medicine: Result - Labs CBC & Chem 7: 07/24/16 04:33 07/24/16 04:33 Labs: Short CBC 07/24/16 Range/Units 04:33 WBC 7.1 (4.3-11.1) K/mcL Hgb 10.2 L (11.5-15.4) g/dL Hct 34.5 L (35.3-44.9) % Plt Count 278 (140-400) K/mcL Neutrophils # 4.9 (1.6-8.9) K/mcL BMP 07/24/16 04:33 Sodium 141 Potassium 3.8 Chloride 99 Carbon Dioxide 33 H BUN 26 H Creatinine 0.79 Glucose 142 H Calcium 9.6 - ABG Interpretation ABG results: ABG ABG pH 7.40 pH Units (7.32-7.45) 07/23/16 05:20 ABG pCO2 59 mmHg (35-45) H 07/23/16 05:20 ABG pO2 179 mmHg (85-104) H 07/23/16 05:20 ABG O2 Saturation 100 % (95-98) H 07/23/16 05:20 Consult Discharge Plan - Plan Referrals: Omari Gonzalez MD [Partnered Physician] - 08/01/16 1:45 pm Cedric Orlando CNP [Primary Care Provider] - 07/30/16 11:00 am ()
[2016-07-24] MEDS: Melatonin 3 MG TABLET PO SCH (21:10)
[2016-07-24] MEDS: Temazepam 15 MG CAPSULE PO PRN (21:10)
[2016-07-25] MEDS: Ipratropium/Albuterol Neb 3 ML IH SCH ×3 (03:35→11:06)
[2016-07-25 05:26] LABS: Basophils # 0.1 K/mcL (0.0-0.2); Basophils % 0.5 %; Eosinophils # 0.2 K/mcL (0.0-0.6); Eosinophils % 1.7 %; Hematocrit 36.1 % (35.3-44.9); Hemoglobin 10.6 g/dL (11.5-15.4); Immature Granulocytes % 1.8 % (0-4); Lymphocytes # 1.8 K/mcL (0.6-4.6); Lymphocytes % 19.8 %; Mean Corpuscular HGB Conc 29.4 g/dL (31.6-35.5); Mean Corpuscular Hemoglobin 25.2 pg (28.0-33.3); Mean Platelet Volume 9.6 fL (9.4-12.4); Monocytes # 1.3 K/mcL (0.0-1.3); Monocytes % 14.4 %; Neutrophils # 5.7 K/mcL (1.6-8.9); Platelet Count 316 K/mcL (140-400); Red Cell Distribution Width 15.7 % (11.5-14.5); Segmented Neutrophils % 61.8 %
[2016-07-25 05:53] LABS: BUN/Creatinine Ratio 38 (6-26); Blood Urea Nitrogen 36 mg/dL (7-20); Calcium 9.7 mg/dL (8.6-10.8); Carbon Dioxide 28 mEq/L (19-29); Chloride 102 mEq/L (98-109); Glucose 112 mg/dL (70-99); Magnesium 1.7 mg/dL (1.6-2.6); Osmolality,Calculated 301 (280-300); Phosphorous 4.5 mg/dL (2.3-4.7); Potassium 4.1 mEq/L (3.5-4.5); Sodium 141 mEq/L (136-145); eGFR For African Americans > 60 (> 60); eGFR For Non-African Americans 59 (> 60)
[2016-07-25 06:16] LABS: Platelet Estimate Normal (Normal)
[2016-07-25] MEDS: *HR* Heparin 5,000 UNIT/ML VIAL SQ SCH (06:25)
[2016-07-25 07:14] VITALS: BP 112/59
[2016-07-25] MEDS: Pantoprazole 40 MG VIAL IVPB SCH (08:07)
[2016-07-25] MEDS: Insulin LISPRO 300 UNITS/3 ML VIAL SQ SCH (08:07)
[2016-07-25] MEDS: Chlorhexidine Rinse 15 ML MOUTHWASH MM SCH (08:07)
[2016-07-25] MEDS: Levofloxacin 750 MG/150 ML 750 MG/150 ML BAG IVPB SCH (08:07)
[2016-07-25] MEDS: Furosemide 20 MG TABLET PO SCH (08:08)
[2016-07-25] MEDS: Aspirin 81 MG TAB.CHEW PO SCH (08:08)
[2016-07-25] MEDS: Gabapentin 400 MG CAPSULE PO SCH (08:08)
[2016-07-25] MEDS: Insulin DETEMIR 100 UNIT/ML X5UNITS SQ SCH (08:20)
--- NOTE | 2016-07-25 09:03 | Discharge Summary ---
Date of Encounter: 07/25/16 Time of Encounter: 08:58 - Discharge Diagnosis (1) Acute respiratory failure with hypoxia Priority: Primary Status: Acute (2) Influenza A Priority: Primary Status: Acute (3) Hypertension Priority: Secondary Status: Chronic Qualifiers: Hypertension type: essential hypertension Qualified Code(s): I10 - Essential (primary) hypertension (4) Diabetes mellitus type 2 in obese Priority: Secondary Status: Chronic (5) Diastolic heart failure Priority: Secondary Status: Chronic Qualifiers: Heart failure chronicity: unspecified heart failure chronicity Qualified Code(s): I50.30 - Unspecified diastolic (congestive) heart failure (6) Hypothyroidism Priority: Secondary Status: Chronic Qualifiers: Hypothyroidism type: unspecified Qualified Code(s): E03.9 - Hypothyroidism , unspecified (7) Morbid obesity with BMI of 40.0-44.9, adult Priority: Secondary Status: Chronic (8) DVT prophylaxis Priority: Secondary Status: Acute (9) Elevated troponin Priority: Secondary Status: Acute - Discharge Medications Prescriptions: Oseltamivir [Tamiflu] 75 mg PO BID #9 capsule Home Medications: Allopurinol [Zyloprim] 100 mg PO DAILY 04/19/16 [History] Aspirin 81 mg PO DAILY 04/19/16 [History] Citalopram Hydrobromide [Celexa] 40 mg PO DAILY 04/19/16 [History] Doxazosin [Cardura] 1 mg PO HS 04/19/16 [History] Furosemide [Lasix] 20 mg PO DAILY 04/19/16 [History] Gabapentin [Neurontin] 800 mg PO TID 04/19/16 [History] Levothyroxine [Synthroid] 150 mcg PO DAILY 04/19/16 [History] Multivitamin [One Daily Essential] 1 each PO DAILY 04/19/16 [History] Vitamin B Complex Vit C No.4 [Super B Complex] 150 mg PO DAILY 04/19/16 [History ] Vitamin E Acid Succinate [Vitamin E] 400 units PO DAILY 04/19/16 [History] D-Methorphan Hb/P-Epd HCl/Bpm [Bromfed Dm Cough Syrup] 10 ml PO 3-4XD PRN #120 syrup 07/18/16 [Rx] Atorvastatin [Lipitor] 40 mg PO HS 07/20/16 [History] DiphenhydraMINE [Benadryl] 50 mg PO HS PRN #0 capsule 07/25/16 [Rx] Insulin DETEMIR [Levemir] 25 unit SQ BID [id number] 07/25/16 [Rx] Ipratropium/Albuterol Neb [Duoneb] 3 ml IH [id number] inhsol 07/25/16 [Rx] Lisinopril [Zestril] 5 mg PO DAILY tablet 07/25/16 [Rx] Melatonin 3 mg PO HS tablet 07/25/16 [Rx] Metoprolol [Lopressor] 50 mg PO BID tablet 07/25/16 [Rx] Oseltamivir [Tamiflu] 75 mg PO BID #9 capsule 07/25/16 [Rx] Temazepam [Restoril] 15 mg PO HS PRN #0 capsule 07/25/16 [Rx] Allergies/Adverse Reactions: Allergies Penicillins Allergy (Verified 05/21/16 21:55) Hives doxycycline Adverse Reaction (Verified 05/21/16 21:55) Vomiting Date of admission: 07/20/16 04:25 Primary care physician: Cedric Orlando CNP Consults: 07/20/16 05:50 Consult to Pulmonology [CONS] Routine Consulting Provider: [facility] Reason for Consult: Acute resp failure/ ICU management Time Notified: 05:51 Call Completed: Yes 07/20/16 11:15 Consult to Nutrition [CONS] Routine Comment: Consulting Provider: NUTRITION Reason for Dietary Consult: TF Start and Manage 07/20/16 13:57 Consult to Cardiology [CONS] Stat Comment: Consulting Provider: Card[facility] [place] Reason for Consult: Troponin 0.03>0.97, Acute resp failure/PNA/flu A, pacer in Apr 2016 by Omari Gonzalez. Call Completed: Yes 07/22/16 10:27 Consult to Occupational Therapy [CONS] Routine Comment: Evaluate, develop and implement POC Consult to Physical Therapy [CONS] Routine Comment: Evaluate, develop and implement POC 07/24/16 10:30 Consult to [employer] [CONS] Routine Reason for SW Consult: Discharge planning ECF Discharging clinician: Gini Ferris Anticipated date of discharge: 07/25/16 - Patient Status Disposition: Transfer SNF Condition: Good Functional capacity at discharge: uses cane/walker Overall status at discharge: patient is progressing back to baseline - Discharge Instructions Follow Up With: Omari Gonzalez MD [Partnered Physician] - 08/01/16 1:45 pm Cedric Orlando CNP [Primary Care Provider] - 07/30/16 11:00 am () Additional Instructions: Please follow up with your primary care physician within one week after your discharge from the hospital. Please follow-up with cardiology within 1-2 weeks after discharge from the hospital. Please continue Tamiflu for 5 more days. Please continue aspirin, metoprolol, atorvastatin after discharge Your insulin dose has been changed to 25 units twice a day as your blood glucose levels were well controlled during your hospitalization. Please closely monitor your fingerstick glucose at home. Please continue oxygen support as needed. Please resume all your home medications as prescribed by your primary care physician. - Diet and Activity Activity: as per physical therapy, wear oxygen at all times Diet: diabetic diet Hospital course: Ms. Estevez is a 61 year old female with past medical history of hypertension, hyperlipidemia, diabetes mellitus type 2, colon CA in remission status post colostomy, and morbid obesity who was admitted for management of acute respiratory failure. Upon arrival to the ER patient was in severe respiratory distress requiring intubation and admission to the ICU. Patient was noted to be positive for influenza A and was started on antiviral therapy. There was a concern for underlying bacterial etiology due to which IV antibiotics were also added to her regimen. Patient responded well to therapy and was extubated once respiratory status improved. Patient continued to remain dependent on O2 nasal cannula status post extubation. Patient does not have history of using home oxygen prior to this hospitalization. At this time she is saturating well on nasal cannula and is hemodynamically stable. Patient was evaluated by physical therapy and short-term rehabilitation was recommended. She was also noted to have elevated troponins with a concern for ACS. She was initially started on therapeutic dose of anticoagulation by cardiology however after further workup, elevated troponins were likely secondary to type II demand ischemia. Patient remained chest pain-free throughout the course of her hospitalization. Therapeutic anticoagulation was discontinued and patient is to continue on aspirin, beta wanda, statin. Patient is to follow-up with cardiology after discharge for further workup to rule out any ischemic etiology. At this time patient is hemodynamically stable, resting comfortably in bed, saturating well on nasal cannula, and will be discharged to short-term rehabilitation today. She is to follow-up with primary care physician and cardiology after discharge. She is to undergo oxygen qualification testing again at the rehabilitation facility prior to her discharge for home O2 supplementation placement. - Time Spent with Patient Total time spent providing and/or coordinating discharge services: Greater than 30 minutes - Constitutional Vitals: Temp Pulse Resp BP Pulse Ox 98.0 F 77 18 112/59 93 L 07/25/16 07:05 07/25/16 07:05 07/25/16 07:05 07/25/16 07:05 07/25/16 07:05 General appearance: Present: A&O X 3, morbidly obese, pleasant, no acute distress, answers questions appropriately - Head Head exam: Present: atraumatic, normocephalic - Eye Eye exam: Present: normal appearance, conjuntiva pink, sclera anicteric - Respiratory Respiratory exam: Present: CTAB. Absent: accessory muscle use, rales, rhonchi, wheezes - Cardiovascular Cardiovascular exam: Present: RRR, +S1, +S2. Absent: diastolic murmur, gallop, rubs, systolic murmur - GI/Abdominal GI/Abdominal exam: Present: distended (obese, colostomy in place), normal bowel sounds, soft, no peritoneal signs. Absent: tenderness - Extremities Exam Extremities exam: Present: warm, radial pulses palpable and symetrical. Absent : calf tenderness, cyanotic, pedal edema - Neurological Exam Neurological exam: Present: alert, oriented X3, no focal deficits - Psychiatric Psychiatric exam: Present: normal affect, normal mood
--- NOTE | 2016-07-25 09:13 | Physician Discharge Referral ---
ExtendedCare Referral Info Transfer To: F Provider in Charge after Transfer: PCP - Diagnosis (1) Acute respiratory failure with hypoxia Priority: Primary Status: Acute (2) Influenza A Priority: Primary Status: Acute (3) Hypertension Priority: Secondary Status: Chronic (4) Diabetes mellitus type 2 in obese Priority: Secondary Status: Chronic (5) Diastolic heart failure Priority: Secondary Status: Chronic (6) Hypothyroidism Priority: Secondary Status: Chronic (7) Morbid obesity with BMI of 40.0-44.9, adult Priority: Secondary Status: Chronic (8) DVT prophylaxis Priority: Secondary Status: Acute (9) Elevated troponin Priority: Secondary Status: Acute - Transfer Medications Prescriptions: Oseltamivir [Tamiflu] 75 mg PO BID #9 capsule Home Medications: Allopurinol [Zyloprim] 100 mg PO DAILY 04/19/16 [History] Aspirin 81 mg PO DAILY 04/19/16 [History] Citalopram Hydrobromide [Celexa] 40 mg PO DAILY 04/19/16 [History] Doxazosin [Cardura] 1 mg PO HS 04/19/16 [History] Furosemide [Lasix] 20 mg PO DAILY 04/19/16 [History] Gabapentin [Neurontin] 800 mg PO TID 04/19/16 [History] Levothyroxine [Synthroid] 150 mcg PO DAILY 04/19/16 [History] Multivitamin [One Daily Essential] 1 each PO DAILY 04/19/16 [History] Vitamin B Complex Vit C No.4 [Super B Complex] 150 mg PO DAILY 04/19/16 [History ] Vitamin E Acid Succinate [Vitamin E] 400 units PO DAILY 04/19/16 [History] D-Methorphan Hb/P-Epd HCl/Bpm [Bromfed Dm Cough Syrup] 10 ml PO 3-4XD PRN #120 syrup 07/18/16 [Rx] Atorvastatin [Lipitor] 40 mg PO HS 07/20/16 [History] DiphenhydraMINE [Benadryl] 50 mg PO HS PRN #0 capsule 07/25/16 [Rx] Insulin DETEMIR [Levemir] 25 unit SQ BID [id number] 07/25/16 [Rx] Ipratropium/Albuterol Neb [Duoneb] 3 ml IH [id number] inhsol 07/25/16 [Rx] Lisinopril [Zestril] 5 mg PO DAILY tablet 07/25/16 [Rx] Melatonin 3 mg PO HS tablet 07/25/16 [Rx] Metoprolol [Lopressor] 50 mg PO BID tablet 07/25/16 [Rx] Oseltamivir [Tamiflu] 75 mg PO BID #9 capsule 07/25/16 [Rx] Temazepam [Restoril] 15 mg PO HS PRN #0 capsule 07/25/16 [Rx] Allergies/Adverse Reactions: Allergies Penicillins Allergy (Verified 05/21/16 21:55) Hives doxycycline Adverse Reaction (Verified 05/21/16 21:55) Vomiting - Respiratory Orders Oxygen / L per min (3L/min) Smoking Cessation: Smoking cessation has been advised. For more information, call the [employer] Quit Line at 7-547-PBRU-NOW. - Treatments List/Other: Please follow up with your primary care physician within one week after your discharge from the hospital. Please follow-up with cardiology within 1-2 weeks after discharge from the hospital. Please continue Tamiflu for 5 more days. Please continue aspirin, metoprolol, atorvastatin after discharge Your insulin dose has been changed to 25 units twice a day as your blood glucose levels were well controlled during your hospitalization. Please closely monitor your fingerstick glucose at home. Please continue oxygen support as needed. Please resume all your home medications as prescribed by your primary care physician. - Diet Orders House Supplement per Dietary: DIABETIC DIET CERTIFICATION: I certify that the transfer of the above named patient to an Extended Care Facility is necessary for the continuing treatment of the diagnosis listed. The above information is true and accurate reflection of patient's current condition. Confidential - Redisclosure prohibited without a patient's written consent.
== END 2016-07-25 11:29 | DRG 871 ==
LOC: ICNU 04:25 → SUATTDRO 04:25 → ICNU 04:41 → 2NNU 07-22 16:11
PROVIDERS: ADMIT Internal Medicine; ATTEND Internal Medicine

== ENCOUNTER 2020-06-27 04:49 | Inpatient (IN) ==
[2020-06-27] MEDS ORDERED: Naloxone 0.4 MG/ML INJ IVP PRN (08:53)
[2020-06-27] MEDS ORDERED: *HR* Dextrose 50 % in Water (Vial) 50 ML VIAL IVP PRN (08:56)
[2020-06-27] MEDS ORDERED: D5% in Water 1,000 ML IVC PRN (08:56)
[2020-06-27] MEDS ORDERED: Dextrose Gel 15 GM/37.5 ML TUBE PO PRN ×2 (08:56)
[2020-06-27] MEDS ORDERED: Furosemide 40 MG/4 ML VIAL IVP ONE (09:17)
[2020-06-27 09:24] LABS: Basophils % 0.2 %; Hematocrit 30.8 % (35.3-44.9); Hemoglobin 9.1 g/dL (11.5-15.4); Immature Granulocytes % 0.3 % (0-4); Lymphocytes # 0.2 K/mcL (0.6-4.6); Lymphocytes % 3.1 %; Mean Corpuscular HGB Conc 29.5 g/dL (31.6-35.5); Mean Corpuscular Volume 98.1 fL (83.0-100.0); Mean Platelet Volume 10.1 fL (9.4-12.4); Monocytes % 0.6 %; Neutrophils # 6.2 K/mcL (1.6-8.9); Platelet Count 236 K/mcL (140-400); Red Blood Count 3.14 M/mcL (3.82-4.97); Red Cell Distribution Width 14.5 % (11.5-14.5); Segmented Neutrophils % 95.8 %; White Blood Count 6.5 K/mcL (4.3-11.1)
[2020-06-27 09:28] LABS: INR 1.2; Prothrombin Time 13.8 Seconds (9.4-12.1)
[2020-06-27 09:44] LABS: BUN/Creatinine Ratio 23 (6-26); Blood Urea Nitrogen 23 mg/dL (8-23); Calcium 10.4 mg/dL (8.6-10.3); Carbon Dioxide 35 mEq/L (23-29); Chloride 97 mEq/L (98-107); Glucose 410 mg/dL (70-105); Osmolality,Calculated 307 (280-300); Potassium 4.4 mEq/L (3.5-5.1); Sodium 138 mEq/L (136-145); eGFR For African Americans > 60 (> 60); eGFR For Non-African Americans 56 (> 60)
[2020-06-27] MEDS: Insulin LISPRO 300 UNITS/3 ML VIAL SUBQ SCH ×4 (10:21→20:26)
[2020-06-27] MEDS ORDERED: *HR* HYDROcodone/Acet 5/325 mg TABLET PO PRN (11:32)
[2020-06-27] MEDS ORDERED: Vancomycin 2,000 MG/520 ML IV.SOLN IVPB ONE (12:00)
[2020-06-27] MEDS: Gabapentin 400 MG CAPSULE PO SCH ×3 (12:40→20:22)
[2020-06-27] MEDS: MethylPREDNISolone 40 MG/ML VIAL IVP SCH (17:30)
[2020-06-27] MEDS: Ipratropium/Albuterol Neb 3 ML IH SCH (20:00)
[2020-06-27] MEDS: cefTRIAXone 2,000 MG in Water for inj. (sterile) 20 ML IVP SCH (20:22)
[2020-06-27] MEDS: Azithromycin 500 MG in 0.9 % Sodium Chloride 250 ML IVPB SCH (20:23)
[2020-06-27] MEDS: Nystatin POWDER 30 GM BOTTLE TP SCH (21:00)
[2020-06-27] MEDS: Acetaminophen 325 MG TABLET PO PRN (23:10)
[2020-06-28] MEDS ORDERED: Vancomycin 1,500 MG/265 ML IV.SOLN IVPB SCH
[2020-06-28] MEDS: Ipratropium/Albuterol Neb 3 ML IH SCH ×7 (00:10→23:46)
[2020-06-28 05:02] LABS: Basophils % 0.1 %; Hematocrit 29.8 % (35.3-44.9); Hemoglobin 8.7 g/dL (11.5-15.4); Immature Granulocytes % 0.5 % (0-4); Lymphocytes # 0.3 K/mcL (0.6-4.6); Lymphocytes % 3.7 %; Mean Corpuscular HGB Conc 29.2 g/dL (31.6-35.5); Mean Corpuscular Hemoglobin 28.6 pg (28.0-33.3); Mean Platelet Volume 10.3 fL (9.4-12.4); Monocytes # 0.2 K/mcL (0.0-1.3); Neutrophils # 7.3 K/mcL (1.6-8.9); Platelet Count 211 K/mcL (140-400); Red Blood Count 3.04 M/mcL (3.82-4.97); Red Cell Distribution Width 14.9 % (11.5-14.5); Segmented Neutrophils % 92.7 %; White Blood Count 7.9 K/mcL (4.3-11.1)
[2020-06-28] MEDS: MethylPREDNISolone 40 MG/ML VIAL IVP SCH ×2 (05:31→16:58)
[2020-06-28 05:55] LABS: Hypochromasia Present (Not Present); Platelet Estimate Normal (Normal)
[2020-06-28 06:04] LABS: BUN/Creatinine Ratio 27 (6-26); Blood Urea Nitrogen 25 mg/dL (8-23); Calcium 10.3 mg/dL (8.6-10.3); Carbon Dioxide 37 mEq/L (23-29); Chloride 101 mEq/L (98-107); Cholesterol 109 mg/dL (< 200); Glucose 323 mg/dL (70-105); HDL Cholesterol 36 mg/dL (40-59); LDL Cholesterol,Calculated 55 mg/dL (< 100); Osmolality,Calculated 313 (280-300); Potassium 4.4 mEq/L (3.5-5.1); Sodium 143 mEq/L (136-145); Triglycerides 89 mg/dL (< 150); eGFR For African Americans > 60 (> 60); eGFR For Non-African Americans > 60 (> 60)
[2020-06-28] MEDS: Insulin LISPRO 300 UNITS/3 ML VIAL SUBQ SCH ×4 (08:36→20:15)
[2020-06-28] MEDS: Gabapentin 400 MG CAPSULE PO SCH ×3 (08:37→20:22)
[2020-06-28] MEDS: Nystatin POWDER 30 GM BOTTLE TP SCH (08:37)
[2020-06-28] MEDS: Acetaminophen 325 MG TABLET PO PRN ×2 (10:19→17:00)
[2020-06-28] MEDS: Bumetanide 1 MG/4 ML VIAL IVP SCH ×2 (12:02→16:59)
[2020-06-28] MEDS: amLODIPine 5 MG TABLET PO SCH (12:03)
[2020-06-28] MEDS ORDERED: NON-FORMULARY MEDICATION 1 EACH EACH (Gabapentin [Neurontin] 800 MG) PO SCH (15:00)
[2020-06-28] MEDS: cefTRIAXone 2,000 MG in Water for inj. (sterile) 20 ML IVP SCH (20:18)
[2020-06-28] MEDS: Azithromycin 500 MG in 0.9 % Sodium Chloride 250 ML IVPB SCH (20:22)
[2020-06-28] MEDS ORDERED: Insulin DETEMIR 100 UNIT/ML X5UNITS SUBQ SCH (21:00)
[2020-06-29 02:44] LABS: Mean Platelet Volume 10.2 fL (9.4-12.4)
[2020-06-29 02:45] LABS: Hematocrit 30.3 % (35.3-44.9); Hemoglobin 8.9 g/dL (11.5-15.4); Immature Granulocytes % 0.7 % (0-4); Lymphocytes # 0.3 K/mcL (0.6-4.6); Lymphocytes % 2.9 %; Mean Corpuscular HGB Conc 29.4 g/dL (31.6-35.5); Mean Corpuscular Hemoglobin 28.6 pg (28.0-33.3); Mean Corpuscular Volume 97.4 fL (83.0-100.0); Monocytes # 0.4 K/mcL (0.0-1.3); Platelet Count 235 K/mcL (140-400); Red Blood Count 3.11 M/mcL (3.82-4.97); Red Cell Distribution Width 15.1 % (11.5-14.5); Segmented Neutrophils % 92.4 %; White Blood Count 8.7 K/mcL (4.3-11.1)
[2020-06-29 03:01] LABS: BUN/Creatinine Ratio 32 (6-26); Blood Urea Nitrogen 29 mg/dL (8-23); Calcium 10.2 mg/dL (8.6-10.3); Carbon Dioxide 38 mEq/L (23-29); Chloride 97 mEq/L (98-107); Glucose 375 mg/dL (70-105); Osmolality,Calculated 311 (280-300); Potassium 4.4 mEq/L (3.5-5.1); Sodium 140 mEq/L (136-145); eGFR For African Americans > 60 (> 60); eGFR For Non-African Americans > 60 (> 60)
[2020-06-29 03:03] LABS: Platelet Estimate Normal (Normal)
[2020-06-29] MEDS: Nystatin POWDER 30 GM BOTTLE TP SCH ×3 (03:47→20:51)
[2020-06-29] MEDS: Ipratropium/Albuterol Neb 3 ML IH SCH ×6 (04:07→23:08)
[2020-06-29] MEDS: Insulin LISPRO 300 UNITS/3 ML VIAL SUBQ SCH ×5 (06:15→20:27)
[2020-06-29] MEDS: MethylPREDNISolone 40 MG/ML VIAL IVP SCH (06:16)
[2020-06-29] MEDS: Gabapentin 400 MG CAPSULE PO SCH ×3 (08:32→20:31)
[2020-06-29] MEDS: amLODIPine 5 MG TABLET PO SCH (08:32)
[2020-06-29] MEDS: lisinopriL 5 MG TABLET PO SCH (08:33)
[2020-06-29] MEDS: allopurinoL 100 MG TABLET PO SCH (08:33)
[2020-06-29] MEDS: Bumetanide 1 MG/4 ML VIAL IVP SCH ×2 (08:34→17:00)
[2020-06-29] MEDS ORDERED: Insulin DETEMIR 100 UNIT/ML X5UNITS SUBQ ONE ×2 (12:02)
[2020-06-29] MEDS: Sennosides/Docusate Sodium TABLET PO SCH ×2 (12:27→20:36)
[2020-06-29] MEDS ORDERED: DilTIAZem 50 MG/50 ML IV.SOLN IVC SCH (17:30)
[2020-06-29] MEDS: DilTIAZem 50 MG/50 ML IV.SOLN IVC SCH ×2 (18:19→22:45)
[2020-06-29] MEDS: Insulin DETEMIR 100 UNIT/ML X5UNITS SUBQ SCH (20:30)
[2020-06-29] MEDS: Apixaban 5 MG TABLET PO SCH (20:36)
[2020-06-29] MEDS: Metoprolol XL (24 HR) Succ 50 MG TAB.ER.24H PO SCH (20:37)
[2020-06-29] MEDS ORDERED: *HR* Digoxin 0.5 MG/2 ML AMPUL IVP ONE (20:39)
[2020-06-29] MEDS: cefTRIAXone 2,000 MG in Water for inj. (sterile) 20 ML IVP SCH (20:49)
[2020-06-30] MEDS: DilTIAZem 50 MG/50 ML IV.SOLN IVC SCH ×4 (01:08→18:05)
[2020-06-30 01:30] LABS: Hematocrit 30.6 % (35.3-44.9); Mean Corpuscular HGB Conc 29.4 g/dL (31.6-35.5); Mean Corpuscular Hemoglobin 28.6 pg (28.0-33.3); Mean Corpuscular Volume 97.1 fL (83.0-100.0); Mean Platelet Volume 9.8 fL (9.4-12.4); Platelet Count 224 K/mcL (140-400); Red Blood Count 3.15 M/mcL (3.82-4.97); Red Cell Distribution Width 14.6 % (11.5-14.5); White Blood Count 10.6 K/mcL (4.3-11.1)
[2020-06-30 01:53] LABS: BUN/Creatinine Ratio 35 (6-26); Blood Urea Nitrogen 29 mg/dL (8-23); Carbon Dioxide 37 mEq/L (23-29); Chloride 99 mEq/L (98-107); Glucose 218 mg/dL (70-105); Osmolality,Calculated 304 (280-300); Sodium 141 mEq/L (136-145); eGFR For African Americans > 60 (> 60); eGFR For Non-African Americans > 60 (> 60)
[2020-06-30] MEDS ORDERED: *HR* Digoxin 0.5 MG/2 ML AMPUL IVP SCH (03:04)
[2020-06-30] MEDS: *HR* Digoxin 0.5 MG/2 ML AMPUL IVP SCH ×2 (03:06→09:00)
[2020-06-30] MEDS: Ipratropium/Albuterol Neb 3 ML IH SCH ×6 (03:45→23:56)
[2020-06-30] MEDS: Azithromycin 500 MG in 0.9 % Sodium Chloride 250 ML IVPB SCH (05:13)
[2020-06-30] MEDS: Metoprolol XL (24 HR) Succ 50 MG TAB.ER.24H PO SCH ×2 (08:57→21:13)
[2020-06-30] MEDS: lisinopriL 5 MG TABLET PO SCH (08:57)
[2020-06-30] MEDS: allopurinoL 100 MG TABLET PO SCH (08:58)
[2020-06-30] MEDS: Sennosides/Docusate Sodium TABLET PO SCH ×2 (08:58→21:13)
[2020-06-30] MEDS: amLODIPine 5 MG TABLET PO SCH (08:58)
[2020-06-30] MEDS: predniSONE 20 MG TABLET PO SCH (08:59)
[2020-06-30] MEDS: Gabapentin 400 MG CAPSULE PO SCH ×3 (08:59→21:14)
[2020-06-30] MEDS: Apixaban 5 MG TABLET PO SCH ×2 (08:59→21:14)
[2020-06-30] MEDS: Bumetanide 1 MG/4 ML VIAL IVP SCH ×2 (09:00→21:14)
[2020-06-30] MEDS: Insulin LISPRO 300 UNITS/3 ML VIAL SUBQ SCH ×4 (09:18→21:16)
[2020-06-30] MEDS: Nystatin POWDER 30 GM BOTTLE TP SCH ×2 (09:22→21:16)
[2020-06-30] MEDS: cefTRIAXone 2,000 MG in Water for inj. (sterile) 20 ML IVP SCH (21:15)
[2020-06-30] MEDS: Insulin DETEMIR 100 UNIT/ML X5UNITS SUBQ SCH (21:19)
[2020-07-01] MEDS: DilTIAZem 50 MG/50 ML IV.SOLN IVC SCH (01:40)
[2020-07-01] MEDS: Ipratropium/Albuterol Neb 3 ML IH SCH ×6 (03:55→23:25)
[2020-07-01 04:42] LABS: Hematocrit 32.9 % (35.3-44.9); Hemoglobin 9.7 g/dL (11.5-15.4); Mean Corpuscular HGB Conc 29.5 g/dL (31.6-35.5); Mean Corpuscular Hemoglobin 28.8 pg (28.0-33.3); Mean Corpuscular Volume 97.6 fL (83.0-100.0); Mean Platelet Volume 10.3 fL (9.4-12.4); Platelet Count 219 K/mcL (140-400); Red Blood Count 3.37 M/mcL (3.82-4.97)
[2020-07-01 05:00] LABS: BUN/Creatinine Ratio 34 (6-26); Blood Urea Nitrogen 27 mg/dL (8-23); Calcium 9.8 mg/dL (8.6-10.3); Carbon Dioxide 41 mEq/L (23-29); Chloride 97 mEq/L (98-107); Glucose 179 mg/dL (70-105); Osmolality,Calculated 304 (280-300); Potassium 3.8 mEq/L (3.5-5.1); Sodium 142 mEq/L (136-145); eGFR For African Americans > 60 (> 60); eGFR For Non-African Americans > 60 (> 60)
[2020-07-01 08:03] LABS: VBG HCO3 41 mEq/L (21-27); VBG PCO2 63 mmHg (41-51); VBG PH 7.42 pH Units (7.32-7.42); VBG PO2 218 mmHg (25-50)
[2020-07-01] MEDS: Insulin LISPRO 300 UNITS/3 ML VIAL SUBQ SCH ×4 (09:00→20:26)
[2020-07-01] MEDS: Insulin DETEMIR 100 UNIT/ML X5UNITS SUBQ SCH ×2 (09:26→20:26)
[2020-07-01] MEDS: Bumetanide 1 MG/4 ML VIAL IVP SCH (09:29)
[2020-07-01] MEDS: Metoprolol XL (24 HR) Succ 50 MG TAB.ER.24H PO SCH ×2 (09:30→20:28)
[2020-07-01] MEDS: allopurinoL 100 MG TABLET PO SCH (09:31)
[2020-07-01] MEDS: lisinopriL 5 MG TABLET PO SCH (09:31)
[2020-07-01] MEDS: Sennosides/Docusate Sodium TABLET PO SCH ×3 (09:31→20:28)
[2020-07-01] MEDS: Gabapentin 400 MG CAPSULE PO SCH ×3 (09:32→20:29)
[2020-07-01] MEDS: predniSONE 20 MG TABLET PO SCH (09:32)
[2020-07-01] MEDS: Apixaban 5 MG TABLET PO SCH ×2 (09:32→20:29)
[2020-07-01] MEDS: amLODIPine 5 MG TABLET PO SCH (09:32)
[2020-07-01] MEDS: Nystatin POWDER 30 GM BOTTLE TP SCH ×2 (09:33→20:32)
[2020-07-01] MEDS: Bumetanide 1 MG TABLET PO SCH (20:27)
[2020-07-01] MEDS: cefTRIAXone 2,000 MG in Water for inj. (sterile) 20 ML IVP SCH (20:29)
[2020-07-02 01:19] LABS: Hematocrit 35.6 % (35.3-44.9); Hemoglobin 10.5 g/dL (11.5-15.4); Mean Corpuscular HGB Conc 29.5 g/dL (31.6-35.5); Mean Corpuscular Hemoglobin 28.1 pg (28.0-33.3); Mean Corpuscular Volume 95.2 fL (83.0-100.0); Mean Platelet Volume 10.3 fL (9.4-12.4); Platelet Count 242 K/mcL (140-400); Red Blood Count 3.74 M/mcL (3.82-4.97); Red Cell Distribution Width 13.6 % (11.5-14.5); White Blood Count 7.6 K/mcL (4.3-11.1)
[2020-07-02 01:42] LABS: BUN/Creatinine Ratio 35 (6-26); Blood Urea Nitrogen 29 mg/dL (8-23); Calcium 10.4 mg/dL (8.6-10.3); Carbon Dioxide 41 mEq/L (23-29); Chloride 96 mEq/L (98-107); Glucose 200 mg/dL (70-105); Osmolality,Calculated 305 (280-300); Potassium 3.9 mEq/L (3.5-5.1); Sodium 142 mEq/L (136-145); eGFR For African Americans > 60 (> 60); eGFR For Non-African Americans > 60 (> 60)
[2020-07-02] MEDS: Ipratropium/Albuterol Neb 3 ML IH SCH ×6 (03:02→23:34)
[2020-07-02] MEDS: Bumetanide 1 MG TABLET PO SCH ×2 (08:41→21:40)
[2020-07-02] MEDS: Insulin DETEMIR 100 UNIT/ML X5UNITS SUBQ SCH ×2 (08:41→21:51)
[2020-07-02] MEDS: Apixaban 5 MG TABLET PO SCH ×2 (08:43→21:40)
[2020-07-02] MEDS: Metoprolol XL (24 HR) Succ 50 MG TAB.ER.24H PO SCH ×2 (08:43→22:16)
[2020-07-02] MEDS: lisinopriL 5 MG TABLET PO SCH (08:44)
[2020-07-02] MEDS: allopurinoL 100 MG TABLET PO SCH (08:44)
[2020-07-02] MEDS: amLODIPine 5 MG TABLET PO SCH (08:44)
[2020-07-02] MEDS: Gabapentin 400 MG CAPSULE PO SCH ×3 (08:44→21:40)
[2020-07-02] MEDS: Nystatin POWDER 30 GM BOTTLE TP SCH ×2 (08:46→22:17)
[2020-07-02] MEDS: Insulin LISPRO 300 UNITS/3 ML VIAL SUBQ SCH ×4 (08:47→21:46)
[2020-07-02] MEDS: Sennosides/Docusate Sodium TABLET PO SCH (21:40)
[2020-07-03 03:27] LABS: Hematocrit 37.6 % (35.3-44.9); Mean Corpuscular HGB Conc 29.3 g/dL (31.6-35.5); Mean Corpuscular Volume 95.7 fL (83.0-100.0); Mean Platelet Volume 10.4 fL (9.4-12.4); Platelet Count 269 K/mcL (140-400); Red Blood Count 3.93 M/mcL (3.82-4.97); Red Cell Distribution Width 13.7 % (11.5-14.5); White Blood Count 9.7 K/mcL (4.3-11.1)
[2020-07-03] MEDS: Ipratropium/Albuterol Neb 3 ML IH SCH ×6 (03:50→23:50)
[2020-07-03 03:52] LABS: Calcium 10.3 mg/dL (8.6-10.3); Potassium 3.7 mEq/L (3.5-5.1)
[2020-07-03] MEDS ORDERED: acetaZOLAMIDE 500 MG in Water for inj. (sterile) 5 ML IVP ONE (07:36)
[2020-07-03] MEDS: Insulin LISPRO 300 UNITS/3 ML VIAL SUBQ SCH ×4 (08:35→21:11)
[2020-07-03 08:40] LABS: VBG HCO3 47 mEq/L (21-27); VBG PCO2 88 mmHg (41-51); VBG PH 7.34 pH Units (7.32-7.42); VBG PO2 35 mmHg (25-50)
[2020-07-03] MEDS: Sennosides/Docusate Sodium TABLET PO SCH ×2 (08:52→21:05)
[2020-07-03] MEDS: Gabapentin 400 MG CAPSULE PO SCH ×3 (08:53→21:04)
[2020-07-03] MEDS: amLODIPine 5 MG TABLET PO SCH (08:53)
[2020-07-03] MEDS: Apixaban 5 MG TABLET PO SCH ×2 (08:54→21:05)
[2020-07-03] MEDS: Metoprolol XL (24 HR) Succ 50 MG TAB.ER.24H PO SCH ×2 (08:54→21:05)
[2020-07-03] MEDS: lisinopriL 5 MG TABLET PO SCH (08:54)
[2020-07-03] MEDS: Nystatin POWDER 30 GM BOTTLE TP SCH ×2 (08:54→21:05)
[2020-07-03] MEDS: allopurinoL 100 MG TABLET PO SCH (08:54)
[2020-07-03] MEDS ORDERED: Bumetanide 1 MG TABLET PO SCH ×2 (09:00→21:00)
[2020-07-03] MEDS: Insulin DETEMIR 100 UNIT/ML X5UNITS SUBQ SCH ×2 (09:34→21:12)
[2020-07-03] MEDS ORDERED: methylPREDNISolone 125 MG/2 ML VIAL IVP ONE (09:39)
[2020-07-04] MEDS: Ipratropium/Albuterol Neb 3 ML IH SCH ×6 (03:57→23:12)
[2020-07-04] MEDS: Insulin LISPRO 300 UNITS/3 ML VIAL SUBQ SCH ×4 (07:57→20:44)
[2020-07-04] MEDS: allopurinoL 100 MG TABLET PO SCH (07:59)
[2020-07-04] MEDS: Apixaban 5 MG TABLET PO SCH ×2 (08:00→20:45)
[2020-07-04] MEDS: Sennosides/Docusate Sodium TABLET PO SCH ×2 (08:00→20:45)
[2020-07-04] MEDS: lisinopriL 5 MG TABLET PO SCH (08:00)
[2020-07-04] MEDS: predniSONE 20 MG TABLET PO SCH (08:00)
[2020-07-04] MEDS: Metoprolol XL (24 HR) Succ 50 MG TAB.ER.24H PO SCH ×2 (08:00→20:45)
[2020-07-04] MEDS: Gabapentin 400 MG CAPSULE PO SCH ×3 (08:01→20:45)
[2020-07-04] MEDS: amLODIPine 5 MG TABLET PO SCH (08:01)
[2020-07-04] MEDS: Insulin DETEMIR 100 UNIT/ML X5UNITS SUBQ SCH ×2 (08:06→20:47)
[2020-07-04] MEDS: Nystatin POWDER 30 GM BOTTLE TP SCH ×2 (08:07→20:47)
[2020-07-04 08:31] LABS: VBG HCO3 39 mEq/L (21-27); VBG PCO2 76 mmHg (41-51); VBG PH 7.32 pH Units (7.32-7.42); VBG PO2 42 mmHg (25-50)
[2020-07-04 08:45] LABS: Calcium 10.1 mg/dL (8.6-10.3); Potassium 3.7 mEq/L (3.5-5.1)
[2020-07-04] MEDS ORDERED: Bumetanide 1 MG TABLET PO SCH (09:00)
[2020-07-04 20:38] LABS: Adenovirus Not Detected (Not Detect); Bordetella Pertussis Not Detected (Not Detect); Chlamydophila pneumoniae Not Detected (Not Detect); Coronavirus 229E Not Detected (Not Detect); Coronavirus HKU1 Not Detected (Not Detect); Coronavirus NL63 Not Detected (Not Detect); Coronavirus OC43 Not Detected (Not Detect); Human Metapneumovirus Not Detected (Not Detect); Human Rhinovirus/Enterovirus Not Detected (Not Detect); Influenza A Subtype 2009 H1 Not Detected (Not Detect); Influenza B Not Detected (Not Detect); Mycoplasma pneumoniae Not Detected (Not Detect); Parainfluenza Virus 1 Not Detected (Not Detect); Parainfluenza Virus 2 Not Detected (Not Detect); Parainfluenza Virus 3 Not Detected (Not Detect); Parainfluenza Virus 4 Not Detected (Not Detect); Respiratory Syncytial Virus Not Detected (Not Detect); SARS-CoV-2 Not Detected (Not Detect)
[2020-07-05 03:13] LABS: Calcium 10.2 mg/dL (8.6-10.3); Potassium 3.4 mEq/L (3.5-5.1)
[2020-07-05] MEDS: Ipratropium/Albuterol Neb 3 ML IH SCH ×6 (04:10→23:45)
[2020-07-05] MEDS: Insulin LISPRO 300 UNITS/3 ML VIAL SUBQ SCH ×4 (07:49→20:15)
[2020-07-05] MEDS: amLODIPine 5 MG TABLET PO SCH (08:01)
[2020-07-05] MEDS: Gabapentin 400 MG CAPSULE PO SCH ×3 (08:02→20:15)
[2020-07-05] MEDS: Sennosides/Docusate Sodium TABLET PO SCH ×2 (08:02→20:15)
[2020-07-05] MEDS: predniSONE 20 MG TABLET PO SCH (08:03)
[2020-07-05] MEDS: Metoprolol XL (24 HR) Succ 50 MG TAB.ER.24H PO SCH ×2 (08:03→20:15)
[2020-07-05] MEDS: allopurinoL 100 MG TABLET PO SCH (08:03)
[2020-07-05] MEDS: Bumetanide 1 MG TABLET PO SCH ×2 (08:03→15:39)
[2020-07-05] MEDS: lisinopriL 5 MG TABLET PO SCH (08:03)
[2020-07-05] MEDS: Apixaban 5 MG TABLET PO SCH ×2 (08:04→20:15)
[2020-07-05] MEDS: Insulin DETEMIR 100 UNIT/ML X5UNITS SUBQ SCH ×2 (08:06→20:14)
[2020-07-05] MEDS: Nystatin POWDER 30 GM BOTTLE TP SCH ×2 (08:06→20:21)
[2020-07-05] MEDS: DilTIAZem CD (24hr) 180 MG CAP.ER.24H PO SCH (17:27)
[2020-07-06] MEDS: Ipratropium/Albuterol Neb 3 ML IH SCH ×3 (03:40→11:23)
[2020-07-06 05:15] LABS: BUN/Creatinine Ratio 65 (6-26); Blood Urea Nitrogen 64 mg/dL (8-23); Calcium 10.2 mg/dL (8.6-10.3); Carbon Dioxide 36 mEq/L (23-29); Chloride 98 mEq/L (98-107); Glucose 181 mg/dL (70-105); Osmolality,Calculated 313 (280-300); Sodium 140 mEq/L (136-145); eGFR For African Americans > 60 (> 60); eGFR For Non-African Americans 57 (> 60)
[2020-07-06] MEDS: Insulin LISPRO 300 UNITS/3 ML VIAL SUBQ SCH ×2 (08:42→13:12)
[2020-07-06] MEDS: allopurinoL 100 MG TABLET PO SCH (08:56)
[2020-07-06] MEDS: Sennosides/Docusate Sodium TABLET PO SCH (08:56)
[2020-07-06] MEDS: amLODIPine 5 MG TABLET PO SCH (08:56)
[2020-07-06] MEDS: Gabapentin 400 MG CAPSULE PO SCH ×2 (08:56→14:40)
[2020-07-06] MEDS: predniSONE 20 MG TABLET PO SCH (08:56)
[2020-07-06] MEDS: Bumetanide 1 MG TABLET PO SCH (08:56)
[2020-07-06] MEDS: Apixaban 5 MG TABLET PO SCH (08:57)
[2020-07-06] MEDS: lisinopriL 5 MG TABLET PO SCH (08:58)
[2020-07-06] MEDS: Metoprolol XL (24 HR) Succ 50 MG TAB.ER.24H PO SCH (08:58)
[2020-07-06] MEDS: Insulin DETEMIR 100 UNIT/ML X5UNITS SUBQ SCH (08:58)
[2020-07-06] MEDS: Nystatin POWDER 30 GM BOTTLE TP SCH (08:58)
[2020-07-06] MEDS: DilTIAZem CD (24hr) 180 MG CAP.ER.24H PO SCH (08:58)
[2020-07-06 12:27] VITALS: BP 104/57
== END 2020-07-06 15:21 | DRG 291 ==
LOC: 2ANU → SUATTDRO 08:20
PROVIDERS: ADMIT Internal Medicine; ATTEND Internal Medicine

== ENCOUNTER 2020-11-17 18:59 | Inpatient (IN) ==
[2020-11-17] MEDS ORDERED: Ondansetron ODT 4 MG TAB.RAPDIS SL PRN (21:22)
[2020-11-17] MEDS ORDERED: Naloxone 0.4 MG/ML INJ IVP PRN (21:22)
[2020-11-17] MEDS ORDERED: D5% in Water 1,000 ML IVC PRN (21:26)
[2020-11-17] MEDS ORDERED: *HR* Dextrose 50 % in Water (Vial) 50 ML VIAL IVP PRN (21:26)
[2020-11-17] MEDS ORDERED: Dextrose Gel 15 GM/37.5 ML TUBE PO PRN ×2 (21:26)
[2020-11-17] MEDS ORDERED: Pantoprazole 80 MG in 0.9 % Sodium Chloride 50 ML IVPB ONE (22:11)
[2020-11-17] MEDS: Insulin LISPRO 300 UNITS/3 ML VIAL SUBQ SCH (22:37)
[2020-11-17 22:58] LABS: Basophils # 0.1 K/mcL (0.0-0.2); Basophils % 1.1 %; Eosinophils % 0.6 %; Hematocrit 23.7 % (35.3-44.9); Hemoglobin 7.1 g/dL (11.5-15.4); Immature Granulocytes % 0.5 % (0-4); Lymphocytes % 15.6 %; Mean Corpuscular Hemoglobin 29.8 pg (28.0-33.3); Mean Corpuscular Volume 99.6 fL (83.0-100.0); Mean Platelet Volume 10.6 fL (9.4-12.4); Monocytes # 0.6 K/mcL (0.0-1.3); Monocytes % 8.8 %; Neutrophils # 4.7 K/mcL (1.6-8.9); Platelet Count 215 K/mcL (140-400); Red Blood Count 2.38 M/mcL (3.82-4.97); Red Cell Distribution Width 14.4 % (11.5-14.5); Segmented Neutrophils % 73.4 %; White Blood Count 6.4 K/mcL (4.3-11.1)
[2020-11-17 23:09] LABS: Bacteria,Urine Few per hpf (None-Few); Bilirubin,Urine Negative (Negative); Blood,Urine Moderate (Negative); Calcium Oxalate Crystals,Urine Present per hpf; Clarity,Urine Clear (Clear); Color,Urine Light-Yellow (Yellow); Glucose,Urine (UA) Normal (Normal); Hyaline Casts,Urine Few per lpf (None Seen); Ketones,Urine Negative (Negative); Leukocyte Esterase,Urine Small (Negative); Nitrite,Urine Negative (Negative); PH,Urine 5.5 pH Units (5.0-8.0); Protein,Urine Trace mg/dL (Neg-Trace); RBC,Urine 15-30 per hpf (0-3); Specific Gravity,Urine 1.019 (1.010-1.025); Squamous Epithelial Cell,Urine Few per hpf (None-Few); Urobilinogen,Urine Normal (Normal)
[2020-11-17 23:47] LABS: INR 1.7; Prothrombin Time 19.2 Seconds (9.4-12.1)
[2020-11-17 23:48] LABS: Adenovirus Not Detected (Not Detect); Bordetella Pertussis Not Detected (Not Detect); Chlamydophila pneumoniae Not Detected (Not Detect); Coronavirus 229E Not Detected (Not Detect); Coronavirus HKU1 Not Detected (Not Detect); Coronavirus NL63 Not Detected (Not Detect); Coronavirus OC43 Not Detected (Not Detect); Human Metapneumovirus Not Detected (Not Detect); Human Rhinovirus/Enterovirus Not Detected (Not Detect); Influenza A Subtype 2009 H1 Not Detected (Not Detect); Influenza B Not Detected (Not Detect); Mycoplasma pneumoniae Not Detected (Not Detect); Parainfluenza Virus 1 Not Detected (Not Detect); Parainfluenza Virus 2 Not Detected (Not Detect); Parainfluenza Virus 3 Not Detected (Not Detect); Parainfluenza Virus 4 Not Detected (Not Detect); Respiratory Syncytial Virus Not Detected (Not Detect); SARS-CoV-2 Not Detected (Not Detect)
[2020-11-17] MEDS ORDERED: 0.9 % Sodium Chloride 250 ML ONE (23:51)
[2020-11-18] MEDS: Acetaminophen 325 MG TABLET PO PRN ×2 (00:15→17:03)
[2020-11-18] MEDS: Octreotide 400 MCG in 0.9 % Sodium Chloride 100 ML IVC SCH ×2 (00:21→22:09)
[2020-11-18 05:29] LABS: Eosinophils % 1.3 %; Hematocrit 25.1 % (35.3-44.9); Hemoglobin 7.4 g/dL (11.5-15.4); Immature Granulocytes % 0.3 % (0-4); Red Blood Count 2.47 M/mcL (3.82-4.97)
[2020-11-18 05:31] LABS: Basophils # 0.1 K/mcL (0.0-0.2); Basophils % 1.3 %; Eosinophils # 0.1 K/mcL (0.0-0.6); Hematocrit 24.6 % (35.3-44.9); Hemoglobin 7.4 g/dL (11.5-15.4); Immature Platelets 5.2 % (1.1-6.1); Lymphocytes # 1.6 K/mcL (0.6-4.6); Lymphocytes % 20.8 %; Mean Corpuscular HGB Conc 30.1 g/dL (31.6-35.5); Mean Corpuscular Volume 99.6 fL (83.0-100.0); Mean Platelet Volume 11.3 fL (9.4-12.4); Monocytes % 12.2 %; Platelet Count 174 K/mcL (140-400); Red Cell Distribution Width 15.9 % (11.5-14.5); Segmented Neutrophils % 64.1 %; White Blood Count 7.8 K/mcL (4.3-11.1)
[2020-11-18 05:36] LABS: INR 1.5; Prothrombin Time 17.5 Seconds (9.4-12.1)
[2020-11-18 05:50] LABS: Platelet Estimate Normal (Normal)
[2020-11-18 05:51] LABS: Calcium 9.2 mg/dL (8.6-10.3); Magnesium 1.4 mg/dL (1.6-2.6); Potassium 4.4 mEq/L (3.5-5.1)
[2020-11-18] MEDS ORDERED: Pantoprazole 40 MG VIAL IVP SCH (06:00)
[2020-11-18] MEDS ORDERED: Metoclopramide 10 MG in 0.9 % Sodium Chloride 50 ML IVPB ONE (06:42)
[2020-11-18] MEDS ORDERED: 0.9 % Sodium Chloride 1,000 ML IVC ONE ×2 (07:33→12:50)
[2020-11-18 08:35] LABS: Hematocrit 24.3 % (35.3-44.9); Hemoglobin 7.6 g/dL (11.5-15.4)
[2020-11-18] MEDS ORDERED: Metoclopramide 10 MG/2 ML VIAL IVP STA (08:44)
[2020-11-18] MEDS: cefTRIAXone 1,000 MG in Water for inj. (sterile) 10 ML IVP SCH ×2 (08:49→11:19)
[2020-11-18] MEDS: Insulin LISPRO 300 UNITS/3 ML VIAL SUBQ SCH ×4 (08:56→20:41)
[2020-11-18] MEDS ORDERED: Pantoprazole 40 MG in 0.9 % Sodium Chloride Mini Bag 100 ML IVC SCH (09:15)
[2020-11-18] MEDS ORDERED: Heparin 1,000 UNITS/500 mL 500 ML ONE (09:50)
[2020-11-18] MEDS ORDERED: Lidocaine -MPF 2% 5 ML VIAL ONE (09:57)
[2020-11-18] MEDS ORDERED: *HR* Phenylephrine 10 MG/ML VIAL ONE (10:02)
[2020-11-18] MEDS ORDERED: *HR* Vasopressin 20 UNIT/ML VIAL ONE (10:07)
[2020-11-18] MEDS ORDERED: *HR* Propofol 200 MG/20 ML VIAL IVP ONE (10:10)
[2020-11-18] MEDS ORDERED: *HR* Succinylcholine 200 MG/10 ML VIAL IVP ONE (10:12)
[2020-11-18] MEDS ORDERED: Lidocaine -MPF 4% 5 ML AMPUL ONE (10:16)
[2020-11-18] MEDS ORDERED: Ondansetron 4 MG/2 ML VIAL IVP PRN (10:22)
[2020-11-18 12:45] LABS: Hematocrit 26.1 % (35.3-44.9); Hemoglobin 7.9 g/dL (11.5-15.4)
[2020-11-18] MEDS ORDERED: Saline Nasal Spray 44 ML BOTTLE NS PRN (14:03)
[2020-11-18] MEDS: Gabapentin 400 MG CAPSULE PO SCH ×2 (15:58→20:40)
[2020-11-18 20:29] LABS: Hematocrit 24.3 % (35.3-44.9); Hemoglobin 8.5 g/dL (11.5-15.4)
[2020-11-19 04:05] LABS: Hematocrit 22.7 % (35.3-44.9); Hemoglobin 6.9 g/dL (11.5-15.4); Mean Corpuscular HGB Conc 30.4 g/dL (31.6-35.5); Mean Corpuscular Hemoglobin 29.6 pg (28.0-33.3); Mean Corpuscular Volume 97.4 fL (83.0-100.0); Mean Platelet Volume 10.3 fL (9.4-12.4); Platelet Count 185 K/mcL (140-400); Red Blood Count 2.33 M/mcL (3.82-4.97); Red Cell Distribution Width 15.9 % (11.5-14.5); White Blood Count 8.1 K/mcL (4.3-11.1)
[2020-11-19 04:21] LABS: BUN/Creatinine Ratio 37 (6-26); Blood Urea Nitrogen 34 mg/dL (8-23); Calcium 8.9 mg/dL (8.6-10.3); Carbon Dioxide 32 mEq/L (23-29); Chloride 105 mEq/L (98-107); Glucose 184 mg/dL (70-105); Osmolality,Calculated 314 (280-300); Potassium 3.9 mEq/L (3.5-5.1); Sodium 146 mEq/L (136-145); eGFR For African Americans > 60 (> 60); eGFR For Non-African Americans > 60 (> 60)
[2020-11-19] MEDS ORDERED: 0.9 % Sodium Chloride 250 ML ONE (04:51)
[2020-11-19] MEDS: cefTRIAXone 1,000 MG in Water for inj. (sterile) 10 ML IVP SCH (08:00)
[2020-11-19] MEDS: Acetaminophen 325 MG TABLET PO PRN ×2 (08:00→14:41)
[2020-11-19] MEDS: Pantoprazole 40 MG VIAL IVP SCH (08:00)
[2020-11-19] MEDS: Gabapentin 400 MG CAPSULE PO SCH ×3 (08:00→19:35)
[2020-11-19] MEDS: Insulin LISPRO 300 UNITS/3 ML VIAL SUBQ SCH ×4 (08:01→19:39)
[2020-11-19 10:10] LABS: Hematocrit 24.5 % (35.3-44.9); Hemoglobin 7.6 g/dL (11.5-15.4)
[2020-11-19 15:21] LABS: Hematocrit 24.3 % (35.3-44.9); Hemoglobin 7.5 g/dL (11.5-15.4)
[2020-11-19] MEDS: Furosemide 40 MG TABLET PO SCH (17:43)
[2020-11-19 21:28] LABS: Bilirubin,Urine Negative (Negative); Blood,Urine Negative (Negative); Clarity,Urine Clear (Clear); Color,Urine Light-Yellow (Yellow); Glucose,Urine (UA) Normal (Normal); Ketones,Urine Negative (Negative); Leukocyte Esterase,Urine Negative (Negative); Nitrite,Urine Negative (Negative); PH,Urine 6.5 pH Units (5.0-8.0); Protein,Urine Negative (Neg-Trace); Specific Gravity,Urine 1.018 (1.010-1.025); Urobilinogen,Urine Normal (Normal)
[2020-11-19 21:29] LABS: Hematocrit 26.5 % (35.3-44.9)
[2020-11-20] MEDS: Ipratropium/Albuterol Neb 3 ML IH PRN ×2 (02:04→16:22)
[2020-11-20 04:40] LABS: Hematocrit 27.4 % (35.3-44.9); Hemoglobin 8.5 g/dL (11.5-15.4); Mean Corpuscular Hemoglobin 30.2 pg (28.0-33.3); Mean Corpuscular Volume 97.5 fL (83.0-100.0); Mean Platelet Volume 10.5 fL (9.4-12.4); Platelet Count 182 K/mcL (140-400); Red Blood Count 2.81 M/mcL (3.82-4.97); White Blood Count 10.1 K/mcL (4.3-11.1)
[2020-11-20 05:00] LABS: BUN/Creatinine Ratio 21 (6-26); Blood Urea Nitrogen 15 mg/dL (8-23); Calcium 9.6 mg/dL (8.6-10.3); Carbon Dioxide 31 mEq/L (23-29); Chloride 104 mEq/L (98-107); Glucose 218 mg/dL (70-105); Osmolality,Calculated 307 (280-300); Potassium 3.8 mEq/L (3.5-5.1); Sodium 145 mEq/L (136-145); eGFR For African Americans > 60 (> 60); eGFR For Non-African Americans > 60 (> 60)
[2020-11-20] MEDS: Acetaminophen 325 MG TABLET PO PRN (06:12)
[2020-11-20] MEDS ORDERED: Lidocaine -MPF 2% 2 ML VIAL ONE (07:46)
[2020-11-20] MEDS ORDERED: *HR* Etomidate 40 MG/20 ML VIAL IVP ONE (08:57)
[2020-11-20] MEDS: Insulin LISPRO 300 UNITS/3 ML VIAL SUBQ SCH ×4 (09:00→20:39)
[2020-11-20] MEDS: Ringers Solution, Lactated 1,000 ML IVC SCH (10:00)
[2020-11-20] MEDS: Pantoprazole 40 MG VIAL IVP SCH (10:11)
[2020-11-20] MEDS: cefTRIAXone 1,000 MG in Water for inj. (sterile) 10 ML IVP SCH (10:11)
[2020-11-20] MEDS: Gabapentin 400 MG CAPSULE PO SCH ×3 (10:12→20:39)
[2020-11-20] MEDS: Furosemide 40 MG TABLET PO SCH ×2 (10:19→16:42)
[2020-11-20] MEDS: lisinopriL 5 MG TABLET PO SCH (10:19)
[2020-11-20] MEDS: Apixaban 5 MG TABLET PO SCH (20:38)
[2020-11-21] MEDS: Ringers Solution, Lactated 1,000 ML IVC SCH ×2 (04:23→22:54)
[2020-11-21] MEDS: Insulin LISPRO 300 UNITS/3 ML VIAL SUBQ SCH ×5 (08:41→21:28)
[2020-11-21] MEDS: Pantoprazole 40 MG VIAL IVP SCH (08:42)
[2020-11-21] MEDS: lisinopriL 5 MG TABLET PO SCH (08:42)
[2020-11-21] MEDS: Gabapentin 400 MG CAPSULE PO SCH ×3 (08:42→21:17)
[2020-11-21] MEDS: Furosemide 40 MG TABLET PO SCH ×2 (08:42→17:14)
[2020-11-21] MEDS: Apixaban 5 MG TABLET PO SCH ×2 (08:42→21:16)
[2020-11-21 12:17] LABS: Hematocrit 26.4 % (35.3-44.9); Hemoglobin 7.8 g/dL (11.5-15.4); Mean Corpuscular HGB Conc 29.5 g/dL (31.6-35.5); Mean Corpuscular Hemoglobin 29.4 pg (28.0-33.3); Mean Corpuscular Volume 99.6 fL (83.0-100.0); Mean Platelet Volume 10.5 fL (9.4-12.4); Platelet Count 203 K/mcL (140-400); Red Blood Count 2.65 M/mcL (3.82-4.97); Red Cell Distribution Width 15.8 % (11.5-14.5); White Blood Count 8.4 K/mcL (4.3-11.1)
[2020-11-21 12:36] LABS: BUN/Creatinine Ratio 13 (6-26); Blood Urea Nitrogen 13 mg/dL (8-23); Calcium 9.6 mg/dL (8.6-10.3); Carbon Dioxide 36 mEq/L (23-29); Chloride 101 mEq/L (98-107); Glucose 207 mg/dL (70-105); Osmolality,Calculated 302 (280-300); Potassium 4.2 mEq/L (3.5-5.1); Sodium 143 mEq/L (136-145); eGFR For African Americans > 60 (> 60); eGFR For Non-African Americans 54 (> 60)
[2020-11-22] MEDS: Ringers Solution, Lactated 1,000 ML IVC SCH (05:19)
[2020-11-22 06:38] LABS: Hematocrit 26.6 % (35.3-44.9); Hemoglobin 7.8 g/dL (11.5-15.4); Mean Corpuscular HGB Conc 29.3 g/dL (31.6-35.5); Mean Corpuscular Hemoglobin 29.3 pg (28.0-33.3); Mean Platelet Volume 10.9 fL (9.4-12.4); Platelet Count 171 K/mcL (140-400); Red Blood Count 2.66 M/mcL (3.82-4.97); Red Cell Distribution Width 15.4 % (11.5-14.5); White Blood Count 6.3 K/mcL (4.3-11.1)
[2020-11-22 06:58] LABS: BUN/Creatinine Ratio 17 (6-26); Blood Urea Nitrogen 15 mg/dL (8-23); Calcium 9.3 mg/dL (8.6-10.3); Carbon Dioxide 33 mEq/L (23-29); Chloride 100 mEq/L (98-107); Glucose 168 mg/dL (70-105); Osmolality,Calculated 293 (280-300); Potassium 3.9 mEq/L (3.5-5.1); Sodium 139 mEq/L (136-145); eGFR For African Americans > 60 (> 60); eGFR For Non-African Americans > 60 (> 60)
[2020-11-22] MEDS: lisinopriL 5 MG TABLET PO SCH (09:10)
[2020-11-22] MEDS: Apixaban 5 MG TABLET PO SCH ×2 (09:10→20:10)
[2020-11-22] MEDS: Gabapentin 400 MG CAPSULE PO SCH ×3 (09:10→20:10)
[2020-11-22] MEDS: Furosemide 40 MG TABLET PO SCH ×2 (09:10→17:39)
[2020-11-22] MEDS: Insulin LISPRO 300 UNITS/3 ML VIAL SUBQ SCH ×4 (09:11→20:55)
[2020-11-22] MEDS: Pantoprazole 40 MG VIAL IVP SCH (09:11)
[2020-11-23 02:21] LABS: Hematocrit 26.2 % (35.3-44.9); Hemoglobin 7.9 g/dL (11.5-15.4); Mean Corpuscular HGB Conc 30.2 g/dL (31.6-35.5); Mean Corpuscular Hemoglobin 29.7 pg (28.0-33.3); Mean Corpuscular Volume 98.5 fL (83.0-100.0); Mean Platelet Volume 11.4 fL (9.4-12.4); Platelet Count 195 K/mcL (140-400); Red Blood Count 2.66 M/mcL (3.82-4.97); Red Cell Distribution Width 14.9 % (11.5-14.5); White Blood Count 7.2 K/mcL (4.3-11.1)
[2020-11-23 02:42] LABS: BUN/Creatinine Ratio 19 (6-26); Blood Urea Nitrogen 21 mg/dL (8-23); Calcium 9.2 mg/dL (8.6-10.3); Carbon Dioxide 35 mEq/L (23-29); Chloride 99 mEq/L (98-107); Glucose 161 mg/dL (70-105); Osmolality,Calculated 296 (280-300); Potassium 3.6 mEq/L (3.5-5.1); Sodium 140 mEq/L (136-145); eGFR For African Americans > 60 (> 60); eGFR For Non-African Americans 50 (> 60)
[2020-11-23] MEDS: Ringers Solution, Lactated 1,000 ML IVC SCH (03:56)
[2020-11-23] MEDS: Apixaban 5 MG TABLET PO SCH (08:14)
[2020-11-23] MEDS: Insulin LISPRO 300 UNITS/3 ML VIAL SUBQ SCH ×2 (08:14→12:21)
[2020-11-23] MEDS: Gabapentin 400 MG CAPSULE PO SCH (08:14)
[2020-11-23] MEDS: Furosemide 40 MG TABLET PO SCH (08:14)
[2020-11-23] MEDS: lisinopriL 5 MG TABLET PO SCH (08:14)
[2020-11-23 08:36] VITALS: O2SAT 95
[2020-11-23 11:05] VITALS: BP 103/45; PULSE 71; TEMP 97.5
[2020-11-23 11:12] LABS: Adenovirus Not Detected (Not Detect); Bordetella Pertussis Not Detected (Not Detect); Chlamydophila pneumoniae Not Detected (Not Detect); Coronavirus 229E Not Detected (Not Detect); Coronavirus HKU1 Not Detected (Not Detect); Coronavirus NL63 Not Detected (Not Detect); Coronavirus OC43 Not Detected (Not Detect); Human Metapneumovirus Not Detected (Not Detect); Human Rhinovirus/Enterovirus Not Detected (Not Detect); Influenza A Subtype 2009 H1 Not Detected (Not Detect); Influenza B Not Detected (Not Detect); Mycoplasma pneumoniae Not Detected (Not Detect); Parainfluenza Virus 1 Not Detected (Not Detect); Parainfluenza Virus 2 Not Detected (Not Detect); Parainfluenza Virus 3 Not Detected (Not Detect); Parainfluenza Virus 4 Not Detected (Not Detect); Respiratory Syncytial Virus Not Detected (Not Detect); SARS-CoV-2 Not Detected (Not Detect)
[2020-11-23] MEDS: Acetaminophen 325 MG TABLET PO PRN (12:20)
== END 2020-11-23 13:00 | DRG 377 ==
LOC: CDU → SUATTDRO 20:25 → CDU 20:39 → 2NNU 11-18 06:55 → SUATTDRO 11-18 13:22 → 3ANU 11-20 14:50
PROVIDERS: ADMIT Internal Medicine; ATTEND Internal Medicine

== ENCOUNTER 2020-11-27 22:25 | Observation (INO) ==
[2020-11-28] MEDS ORDERED: Acetaminophen 325 MG TABLET PO PRN (08:40)
[2020-11-28] MEDS ORDERED: Ondansetron 4 MG/2 ML VIAL IVP PRN (08:40)
[2020-11-28] MEDS ORDERED: Melatonin 3 MG TABLET PO PRN (08:40)
[2020-11-28] MEDS ORDERED: Nystatin POWDER 30 GM BOTTLE TP PRN (08:54)
[2020-11-28] MEDS: Furosemide 40 MG TABLET PO SCH ×2 (09:57→20:16)
[2020-11-28] MEDS: lisinopriL 5 MG TABLET PO SCH (09:59)
[2020-11-28] MEDS: Gabapentin 400 MG CAPSULE PO SCH ×3 (10:31→20:16)
[2020-11-28] MEDS ORDERED: D5% in Water 1,000 ML IVC PRN (10:57)
[2020-11-28] MEDS ORDERED: Dextrose Gel 15 GM/37.5 ML TUBE PO PRN ×2 (10:57)
[2020-11-28] MEDS ORDERED: *HR* Dextrose 50 % in Water (Vial) 50 ML VIAL IVP PRN (10:57)
[2020-11-28] MEDS: Insulin LISPRO 300 UNITS/3 ML VIAL SUBQ SCH ×2 (12:25→16:42)
[2020-11-28 12:40] LABS: Hematocrit 26.5 % (35.3-44.9); Hemoglobin 8.3 g/dL (11.5-15.4); Mean Corpuscular HGB Conc 31.3 g/dL (31.6-35.5); Mean Corpuscular Hemoglobin 29.9 pg (28.0-33.3); Mean Corpuscular Volume 95.3 fL (83.0-100.0); Platelet Count 296 K/mcL (140-400); Red Blood Count 2.78 M/mcL (3.82-4.97); Red Cell Distribution Width 14.8 % (11.5-14.5); White Blood Count 6.1 K/mcL (4.3-11.1)
[2020-11-28 12:50] LABS: INR 1.5; Prothrombin Time 17.4 Seconds (9.4-12.1)
[2020-11-28 13:03] LABS: BUN/Creatinine Ratio 13 (6-26); Blood Urea Nitrogen 12 mg/dL (8-23); Calcium 10.1 mg/dL (8.6-10.3); Carbon Dioxide 38 mEq/L (23-29); Chloride 98 mEq/L (98-107); Glucose 238 mg/dL (70-105); Osmolality,Calculated 302 (280-300); Potassium 3.5 mEq/L (3.5-5.1); Sodium 142 mEq/L (136-145); eGFR For African Americans > 60 (> 60); eGFR For Non-African Americans 59 (> 60)
[2020-11-28] MEDS ORDERED: Insulin LISPRO 300 UNITS/3 ML VIAL SUBQ SCH (21:00)
[2020-11-29 05:47] LABS: Hematocrit 25.9 % (35.3-44.9); Hemoglobin 7.8 g/dL (11.5-15.4); Mean Corpuscular HGB Conc 30.1 g/dL (31.6-35.5); Mean Corpuscular Hemoglobin 29.2 pg (28.0-33.3); Mean Platelet Volume 11.5 fL (9.4-12.4); Platelet Count 209 K/mcL (140-400); Red Blood Count 2.67 M/mcL (3.82-4.97); White Blood Count 5.9 K/mcL (4.3-11.1)
[2020-11-29 06:03] LABS: Calcium 9.7 mg/dL (8.6-10.3); Magnesium 1.3 mg/dL (1.6-2.6); Potassium 3.4 mEq/L (3.5-5.1)
[2020-11-29] MEDS: lisinopriL 5 MG TABLET PO SCH (08:36)
[2020-11-29] MEDS: Insulin LISPRO 300 UNITS/3 ML VIAL SUBQ SCH ×3 (08:36→17:12)
[2020-11-29] MEDS: Furosemide 40 MG TABLET PO SCH (08:37)
[2020-11-29] MEDS: Gabapentin 400 MG CAPSULE PO SCH ×2 (08:37→14:54)
[2020-11-29 15:15] VITALS: BP 112/64; PULSE 70; TEMP 98.8; O2SAT 98
== END 2020-11-29 18:44 ==
LOC: 3BNU → SUATTDRO 11-28 06:58
PROVIDERS: ADMIT Internal Medicine; ATTEND Internal Medicine

== ENCOUNTER 2021-02-23 17:15 | Inpatient (IN) ==
[2021-02-24] MEDS ORDERED: Naloxone 0.4 MG/ML INJ IVP PRN ×3 (06:41→15:58)
[2021-02-24] MEDS ORDERED: Ondansetron 4 MG/2 ML VIAL IVP PRN ×2 (07:32→15:58)
[2021-02-24] MEDS ORDERED: D5% in Water 1,000 ML IVC PRN ×2 (07:35→15:58)
[2021-02-24] MEDS ORDERED: Dextrose Gel 15 GM/37.5 ML TUBE PO PRN ×4 (07:35→15:58)
[2021-02-24] MEDS ORDERED: Ipratropium/Albuterol Neb 3 ML IH PRN ×2 (07:35→15:58)
[2021-02-24] MEDS ORDERED: *HR* Dextrose 50 % in Water (Syg) 50 ML SYRINGE IVP PRN ×2 (07:35→15:58)
[2021-02-24 08:10] LABS: BUN/Creatinine Ratio 16 (6-26); Blood Urea Nitrogen 16 mg/dL (8-23); Calcium 10.1 mg/dL (8.6-10.3); Carbon Dioxide 36 mEq/L (23-29); Chloride 98 mEq/L (98-107); Glucose 228 mg/dL (70-105); Osmolality,Calculated 298 (280-300); Potassium 3.9 mEq/L (3.5-5.1); Sodium 140 mEq/L (136-145); eGFR For African Americans > 60 (> 60); eGFR For Non-African Americans 54 (> 60)
[2021-02-24 08:16] LABS: Hematocrit 33.8 % (35.3-44.9); Mean Corpuscular HGB Conc 29.6 g/dL (31.6-35.5); Mean Corpuscular Hemoglobin 27.2 pg (28.0-33.3); Mean Corpuscular Volume 91.8 fL (83.0-100.0); Mean Platelet Volume 9.9 fL (9.4-12.4); Platelet Count 276 K/mcL (140-400); Red Blood Count 3.68 M/mcL (3.82-4.97); Red Cell Distribution Width 15.6 % (11.5-14.5)
[2021-02-24 08:46] LABS: INR 1.5; Prothrombin Time 16.8 Seconds (9.4-12.1)
[2021-02-24] MEDS ORDERED: Aspirin 81 MG TAB.CHEW PO SCH (09:00)
[2021-02-24 09:17] LABS: Estimated Average Glucose 143 mg/dl; Hemoglobin A1C 6.6 %
[2021-02-24] MEDS ORDERED: Ropivacaine/PF 0.5% 30 ML VIAL ONE (10:36)
[2021-02-24] MEDS ORDERED: Lidocaine -MPF 2% 5 ML VIAL ONE (11:49)
[2021-02-24] MEDS ORDERED: Lidocaine HCL 4 ML Topical Solution (Laryng-O-Jet Kit Sterile Pak) TP ONE (11:49)
[2021-02-24] MEDS ORDERED: Ondansetron 4 MG/2 ML VIAL ONE (11:49)
[2021-02-24] MEDS ORDERED: *HR* Succinylcholine 200 MG/10 ML VIAL IVP ONE (11:49)
[2021-02-24] MEDS ORDERED: *HR* Propofol 200 MG/20 ML VIAL IVP ONE (11:50)
[2021-02-24] MEDS ORDERED: *HR* FentaNYL (PF) 100 MCG/2 ML VIAL ONE (11:50)
[2021-02-24] MEDS ORDERED: *HR* Midazolam HCl 2 MG/2 ML VIAL ONE (11:50)
[2021-02-24] MEDS ORDERED: Insulin LISPRO 300 UNITS/3 ML VIAL SUBQ SCH (12:00)
[2021-02-24] MEDS ORDERED: Bupivacaine/EPI 1:200k 0.25% 50 ML VIAL ONE (12:14)
[2021-02-24] MEDS ORDERED: Nystatin POWDER 30 GM BOTTLE TP PRN ×2 (12:42→15:58)
[2021-02-24] MEDS ORDERED: Albuterol 2.5 MG/3 ML NEBULIZER IH ONE (12:42)
[2021-02-24] MEDS ORDERED: Nystatin Cream 15 GM TUBE TP PRN ×2 (12:42→15:58)
[2021-02-24] MEDS ORDERED: Furosemide 40 MG/4 ML VIAL ONE (13:06)
[2021-02-24] MEDS ORDERED: EPHEDrine 50 MG/ML VIAL ONE (13:17)
[2021-02-24] MEDS ORDERED: Clindamycin 900 MG/50 ML 900 MG/50 ML IV.SOLN IVPB ONE (13:28)
[2021-02-24] MEDS ORDERED: Gabapentin 300 MG CAPSULE PO SCH (15:00)
[2021-02-24] MEDS ORDERED: Clindamycin 900 MG/50 ML 900 MG/50 ML IV.SOLN IVPB SCH ×2 (16:00)
[2021-02-24] MEDS: Furosemide 40 MG TABLET PO SCH (16:26)
[2021-02-24] MEDS: Insulin LISPRO 300 UNITS/3 ML VIAL SUBQ SCH (16:50)
[2021-02-24] MEDS ORDERED: Furosemide 40 MG TABLET PO SCH (17:00)
[2021-02-24] MEDS: Gabapentin 300 MG CAPSULE PO SCH (20:23)
[2021-02-25] MEDS: Insulin LISPRO 300 UNITS/3 ML VIAL SUBQ SCH ×4 (00:22→18:17)
[2021-02-25 04:59] LABS: Basophils % 0.1 %; Platelet Count 255 K/mcL (140-400)
[2021-02-25 05:01] LABS: Hematocrit 36.6 % (35.3-44.9); Hemoglobin 10.8 g/dL (11.5-15.4); Immature Granulocytes % 0.3 % (0-4); Lymphocytes # 0.5 K/mcL (0.6-4.6); Mean Corpuscular HGB Conc 29.5 g/dL (31.6-35.5); Mean Corpuscular Hemoglobin 27.6 pg (28.0-33.3); Mean Corpuscular Volume 93.6 fL (83.0-100.0); Mean Platelet Volume 9.9 fL (9.4-12.4); Monocytes # 0.5 K/mcL (0.0-1.3); Monocytes % 6.9 %; Neutrophils # 6.7 K/mcL (1.6-8.9); Red Blood Count 3.91 M/mcL (3.82-4.97); Red Cell Distribution Width 15.4 % (11.5-14.5); Segmented Neutrophils % 86.7 %; White Blood Count 7.7 K/mcL (4.3-11.1)
[2021-02-25 05:12] LABS: BUN/Creatinine Ratio 19 (6-26); Blood Urea Nitrogen 18 mg/dL (8-23); Calcium 10.3 mg/dL (8.6-10.3); Carbon Dioxide 36 mEq/L (23-29); Chloride 97 mEq/L (98-107); Glucose 277 mg/dL (70-105); Osmolality,Calculated 298 (280-300); Potassium 4.7 mEq/L (3.5-5.1); Sodium 138 mEq/L (136-145); eGFR For African Americans > 60 (> 60); eGFR For Non-African Americans > 60 (> 60)
[2021-02-25 08:06] LABS: Hypochromasia Present (Not Present)
[2021-02-25 08:08] LABS: Platelet Estimate Normal (Normal)
[2021-02-25] MEDS: Gabapentin 300 MG CAPSULE PO SCH ×3 (08:48→20:31)
[2021-02-25] MEDS: Aspirin 81 MG TAB.CHEW PO SCH (08:48)
[2021-02-25] MEDS: Furosemide 40 MG TABLET PO SCH ×2 (08:48→16:09)
[2021-02-25] MEDS: Multivit/Ca/Min/Fe/FA 1 TAB TABLET PO SCH (08:48)
[2021-02-25] MEDS ORDERED: Multivit/Ca/Min/Fe/FA 1 TAB TABLET PO SCH (09:00)
[2021-02-25] MEDS: Apixaban 5 MG TABLET PO SCH (20:31)
[2021-02-26] MEDS: Insulin LISPRO 300 UNITS/3 ML VIAL SUBQ SCH ×4 (01:50→18:35)
[2021-02-26] MEDS: Multivit/Ca/Min/Fe/FA 1 TAB TABLET PO SCH (07:54)
[2021-02-26] MEDS: Furosemide 40 MG TABLET PO SCH ×2 (07:54→18:34)
[2021-02-26] MEDS: lisinopriL 5 MG TABLET PO SCH (07:54)
[2021-02-26] MEDS: Apixaban 5 MG TABLET PO SCH ×2 (07:54→20:54)
[2021-02-26] MEDS: Gabapentin 300 MG CAPSULE PO SCH ×3 (07:55→20:54)
[2021-02-26] MEDS: Aspirin 81 MG TAB.CHEW PO SCH (07:59)
[2021-02-26 08:10] LABS: Hematocrit 31.7 % (35.3-44.9); Hemoglobin 9.5 g/dL (11.5-15.4); Mean Corpuscular Hemoglobin 27.1 pg (28.0-33.3); Mean Corpuscular Volume 90.6 fL (83.0-100.0); Mean Platelet Volume 11.3 fL (9.4-12.4); Platelet Count 208 K/mcL (140-400)
[2021-02-26 08:56] LABS: BUN/Creatinine Ratio 31 (6-26); Blood Urea Nitrogen 29 mg/dL (8-23); Carbon Dioxide 32 mEq/L (23-29); Chloride 94 mEq/L (98-107); Glucose 235 mg/dL (70-105); Osmolality,Calculated 289 (280-300); Potassium 4.5 mEq/L (3.5-5.1); Sodium 133 mEq/L (136-145); eGFR For African Americans > 60 (> 60); eGFR For Non-African Americans 60 (> 60)
[2021-02-26] MEDS ORDERED: Insulin LISPRO 300 UNITS/3 ML VIAL SUBQ SCH (21:00)
[2021-02-26 21:27] LABS: Bacteria,Urine Few per hpf (None-Few); Bilirubin,Urine Negative (Negative); Blood,Urine Trace (Negative); Clarity,Urine Clear (Clear); Color,Urine Colorless (Yellow); Glucose,Urine (UA) Normal (Normal); Ketones,Urine Negative (Negative); Leukocyte Esterase,Urine Negative (Negative); Nitrite,Urine Negative (Negative); PH,Urine 6.5 pH Units (5.0-8.0); Protein,Urine Negative (Neg-Trace); Specific Gravity,Urine 1.007 (1.010-1.025); Squamous Epithelial Cell,Urine Few per hpf (None-Few); Urobilinogen,Urine Normal (Normal); WBC,Urine 0-3 per hpf (0-3)
[2021-02-27 07:59] LABS: Hematocrit 34.8 % (35.3-44.9); Hemoglobin 10.7 g/dL (11.5-15.4); Mean Corpuscular HGB Conc 30.7 g/dL (31.6-35.5); Mean Corpuscular Hemoglobin 27.5 pg (28.0-33.3); Mean Corpuscular Volume 89.5 fL (83.0-100.0); Mean Platelet Volume 10.4 fL (9.4-12.4); Platelet Count 304 K/mcL (140-400); Red Blood Count 3.89 M/mcL (3.82-4.97); Red Cell Distribution Width 15.1 % (11.5-14.5); White Blood Count 8.6 K/mcL (4.3-11.1)
[2021-02-27 08:11] VITALS: TEMP 98
[2021-02-27 08:15] LABS: BUN/Creatinine Ratio 29 (6-26); Blood Urea Nitrogen 25 mg/dL (8-23); Calcium 10.5 mg/dL (8.6-10.3); Carbon Dioxide 35 mEq/L (23-29); Chloride 93 mEq/L (98-107); Glucose 189 mg/dL (70-105); Osmolality,Calculated 287 (280-300); Potassium 3.9 mEq/L (3.5-5.1); Sodium 134 mEq/L (136-145); eGFR For African Americans > 60 (> 60); eGFR For Non-African Americans > 60 (> 60)
[2021-02-27] MEDS: Furosemide 40 MG TABLET PO SCH (08:32)
[2021-02-27] MEDS: Multivit/Ca/Min/Fe/FA 1 TAB TABLET PO SCH (08:32)
[2021-02-27] MEDS: Aspirin 81 MG TAB.CHEW PO SCH (08:32)
[2021-02-27] MEDS: Apixaban 5 MG TABLET PO SCH (08:33)
[2021-02-27] MEDS: Gabapentin 300 MG CAPSULE PO SCH ×2 (08:33→14:25)
[2021-02-27] MEDS: lisinopriL 5 MG TABLET PO SCH (08:33)
[2021-02-27] MEDS: Insulin LISPRO 300 UNITS/3 ML VIAL SUBQ SCH ×2 (08:33→12:14)
[2021-02-27 11:26] VITALS: BP 148/74; PULSE 59
[2021-02-27] MEDS ORDERED: Moderna Covid-19 Vaccine 100MCG/0.5mL IM ONE (12:01)
[2021-02-27 12:19] LABS: Influenza A PCR Negative (Negative); Influenza B PCR Negative (Negative); Resp. Syncytial Virus PCR Negative (Negative); SARS-CoV-2 by PCR (In House) Negative (Negative)
[2021-02-27 16:15] VITALS: O2SAT 93
== END 2021-02-27 16:27 | DRG 493 ==
LOC: 4WAOSI → SUATTDRO 02-24 06:12
PROVIDERS: ADMIT Family Medicine; ATTEND Family Medicine

== ENCOUNTER 2021-03-07 20:44 | Observation (INO) ==
[2021-03-08] MEDS ORDERED: Naloxone 0.4 MG/ML INJ IVP PRN (01:42)
[2021-03-08] MEDS ORDERED: Melatonin 3 MG TABLET PO PRN (01:42)
[2021-03-08] MEDS ORDERED: D5% in Water 1,000 ML IVC PRN (01:47)
[2021-03-08] MEDS ORDERED: *HR* Dextrose 50 % in Water (Syg) 50 ML SYRINGE IVP PRN (01:47)
[2021-03-08] MEDS ORDERED: Dextrose Gel 15 GM/37.5 ML TUBE PO PRN ×2 (01:47)
[2021-03-08] MEDS: Pantoprazole 40 MG VIAL IVP SCH ×2 (02:53→17:38)
[2021-03-08 02:56] LABS: Basophils # 0.1 K/mcL (0.0-0.2); Basophils % 0.6 %; Eosinophils # 0.3 K/mcL (0.0-0.6); Eosinophils % 3.3 %; Hemoglobin 10.3 g/dL (11.5-15.4); Immature Granulocytes % 0.6 % (0-4); Lymphocytes # 1.1 K/mcL (0.6-4.6); Lymphocytes % 12.3 %; Mean Corpuscular HGB Conc 30.3 g/dL (31.6-35.5); Mean Corpuscular Hemoglobin 26.8 pg (28.0-33.3); Mean Corpuscular Volume 88.5 fL (83.0-100.0); Mean Platelet Volume 10.5 fL (9.4-12.4); Monocytes # 0.7 K/mcL (0.0-1.3); Monocytes % 7.7 %; Platelet Count 267 K/mcL (140-400); Red Blood Count 3.84 M/mcL (3.82-4.97); Red Cell Distribution Width 15.6 % (11.5-14.5); Segmented Neutrophils % 75.5 %; White Blood Count 9.3 K/mcL (4.3-11.1)
[2021-03-08 03:14] LABS: Potassium 4.3 mEq/L (3.5-5.1)
[2021-03-08 04:25] LABS: INR 1.4; Prothrombin Time 15.8 Seconds (9.4-12.1)
[2021-03-08] MEDS ORDERED: 0.9 % Sodium Chloride 500 ML IVC SCH (05:00)
[2021-03-08] MEDS: Insulin LISPRO 300 UNITS/3 ML VIAL SUBQ SCH ×3 (08:49→17:39)
[2021-03-08] MEDS: *HR* OxyCODONE/APAP 5/325 TABLET PO PRN (09:57)
[2021-03-08] MEDS ORDERED: Acetaminophen 325 MG TABLET PO PRN (11:23)
[2021-03-08] MEDS ORDERED: Nystatin Cream 15 GM TUBE TP PRN (11:23)
[2021-03-08] MEDS ORDERED: Nystatin POWDER 30 GM BOTTLE TP PRN (11:23)
[2021-03-08] MEDS: Gabapentin 300 MG CAPSULE PO SCH ×2 (14:21→21:53)
[2021-03-08] MEDS ORDERED: Insulin LISPRO 300 UNITS/3 ML VIAL SUBQ SCH (21:00)
[2021-03-08] MEDS: Multivit/Ca/Min/Fe/FA 1 TAB TABLET PO SCH (21:53)
[2021-03-09] MEDS: Pantoprazole 40 MG VIAL IVP SCH (05:45)
[2021-03-09 05:48] LABS: Basophils # 0.1 K/mcL (0.0-0.2); Eosinophils # 0.4 K/mcL (0.0-0.6); Eosinophils % 5.1 %; Hematocrit 35.4 % (35.3-44.9); Hemoglobin 10.5 g/dL (11.5-15.4); Immature Granulocytes % 0.3 % (0-4); Lymphocytes # 1.2 K/mcL (0.6-4.6); Lymphocytes % 16.9 %; Mean Corpuscular HGB Conc 29.7 g/dL (31.6-35.5); Mean Corpuscular Hemoglobin 26.5 pg (28.0-33.3); Mean Corpuscular Volume 89.4 fL (83.0-100.0); Mean Platelet Volume 10.3 fL (9.4-12.4); Monocytes # 0.7 K/mcL (0.0-1.3); Monocytes % 10.8 %; Neutrophils # 4.5 K/mcL (1.6-8.9); Platelet Count 244 K/mcL (140-400); Red Blood Count 3.96 M/mcL (3.82-4.97); Red Cell Distribution Width 15.5 % (11.5-14.5); Segmented Neutrophils % 65.9 %; White Blood Count 6.9 K/mcL (4.3-11.1)
[2021-03-09] MEDS: *HR* OxyCODONE/APAP 5/325 TABLET PO PRN (05:54)
[2021-03-09 06:03] LABS: BUN/Creatinine Ratio 23 (6-26); Blood Urea Nitrogen 21 mg/dL (8-23); Calcium 10.2 mg/dL (8.6-10.3); Carbon Dioxide 34 mEq/L (23-29); Chloride 100 mEq/L (98-107); Glucose 176 mg/dL (70-105); Osmolality,Calculated 293 (280-300); Potassium 4.6 mEq/L (3.5-5.1); Sodium 138 mEq/L (136-145); eGFR For African Americans > 60 (> 60); eGFR For Non-African Americans > 60 (> 60)
[2021-03-09] MEDS: Multivit/Ca/Min/Fe/FA 1 TAB TABLET PO SCH (08:48)
[2021-03-09] MEDS: Gabapentin 300 MG CAPSULE PO SCH ×2 (08:49→16:08)
[2021-03-09] MEDS: Insulin LISPRO 300 UNITS/3 ML VIAL SUBQ SCH ×3 (08:50→17:31)
[2021-03-09] MEDS ORDERED: Vitamin B Complex/Vit C/Vit E 1 EACH TABLET PO SCH (09:00)
[2021-03-09 12:10] LABS: Adenovirus Not Detected (Not Detect); Coronavirus 229E Not Detected (Not Detect); Coronavirus HKU1 Not Detected (Not Detect); Coronavirus NL63 Not Detected (Not Detect); Coronavirus OC43 Not Detected (Not Detect); Human Metapneumovirus Not Detected (Not Detect); Human Rhinovirus/Enterovirus Not Detected (Not Detect); Influenza A Subtype 2009 H1 Not Detected (Not Detect); Influenza B Not Detected (Not Detect); Parainfluenza Virus 1 Not Detected (Not Detect); Parainfluenza Virus 2 Not Detected (Not Detect); Parainfluenza Virus 3 Not Detected (Not Detect); Parainfluenza Virus 4 Not Detected (Not Detect); Respiratory Syncytial Virus Not Detected (Not Detect); SARS-CoV-2 Not Detected (Not Detect)
[2021-03-09 12:11] LABS: Bordetella Pertussis Not Detected (Not Detect); Chlamydophila pneumoniae Not Detected (Not Detect); Mycoplasma pneumoniae Not Detected (Not Detect)
[2021-03-09 15:24] VITALS: BP 139/49; PULSE 50; TEMP 97.6; O2SAT 100
== END 2021-03-09 17:47 ==
LOC: 3ANU → SUATTDRO 03-08 01:15
PROVIDERS: ADMIT Student in an Organized Health Care Education/Training Program; ATTEND Family Medicine

== ENCOUNTER 2021-03-14 16:38 | Inpatient (IN) ==
[2021-03-14] MEDS ORDERED: Naloxone 0.4 MG/ML INJ IVP PRN (22:22)
[2021-03-14] MEDS ORDERED: Acetaminophen 325 MG TABLET PO PRN (22:22)
[2021-03-14] MEDS ORDERED: Melatonin 3 MG TABLET PO PRN (22:22)
[2021-03-14] MEDS ORDERED: *HR* Dextrose 50 % in Water (Syg) 50 ML SYRINGE IVP PRN (22:24)
[2021-03-14] MEDS ORDERED: D5% in Water 1,000 ML IVC PRN (22:24)
[2021-03-14] MEDS ORDERED: Dextrose Gel 15 GM/37.5 ML TUBE PO PRN ×2 (22:24)
[2021-03-14] MEDS ORDERED: Perflutren Lipid Microsphere 1.3 ML in 0.9 % Sodium Chloride 8.7 ML IVP PRN (22:26)
[2021-03-14] MEDS ORDERED: Pantoprazole 40 MG VIAL IVP ONE (22:27)
[2021-03-14 22:35] LABS: Basophils # 0.1 K/mcL (0.0-0.2); Basophils % 0.7 %; Eosinophils # 0.2 K/mcL (0.0-0.6); Eosinophils % 2.9 %; Hematocrit 36.8 % (35.3-44.9); Hemoglobin 11.1 g/dL (11.5-15.4); Immature Granulocytes % 0.4 % (0-4); Lymphocytes # 0.9 K/mcL (0.6-4.6); Lymphocytes % 11.9 %; Mean Corpuscular HGB Conc 30.2 g/dL (31.6-35.5); Mean Corpuscular Hemoglobin 27.1 pg (28.0-33.3); Mean Corpuscular Volume 89.8 fL (83.0-100.0); Mean Platelet Volume 10.4 fL (9.4-12.4); Monocytes # 0.7 K/mcL (0.0-1.3); Monocytes % 10.1 %; Neutrophils # 5.3 K/mcL (1.6-8.9); Platelet Count 253 K/mcL (140-400); Red Cell Distribution Width 15.6 % (11.5-14.5); White Blood Count 7.1 K/mcL (4.3-11.1)
[2021-03-14 22:41] LABS: INR 1.5; Prothrombin Time 17.2 Seconds (9.4-12.1)
[2021-03-14] MEDS ORDERED: Ipratropium/Albuterol Neb 3 ML IH PRN (22:55)
[2021-03-14 23:02] LABS: Calcium 9.9 mg/dL (8.6-10.3); Magnesium 1.4 mg/dL (1.6-2.6); Phosphorous 3.4 mg/dL (2.7-4.5); Potassium 4.7 mEq/L (3.5-5.1); Troponin I 0.68 ng/mL (< 0.04)
[2021-03-14] MEDS: Ringers Solution, Lactated 1,000 ML IVC SCH (23:21)
[2021-03-15 03:03] LABS: Basophils # 0.1 K/mcL (0.0-0.2); Basophils % 0.8 %; Eosinophils # 0.3 K/mcL (0.0-0.6); Eosinophils % 3.9 %; Hematocrit 34.5 % (35.3-44.9); Hemoglobin 10.6 g/dL (11.5-15.4); Immature Granulocytes % 0.2 % (0-4); Lymphocytes # 0.9 K/mcL (0.6-4.6); Lymphocytes % 13.9 %; Mean Corpuscular HGB Conc 30.7 g/dL (31.6-35.5); Mean Corpuscular Hemoglobin 27.7 pg (28.0-33.3); Mean Corpuscular Volume 90.1 fL (83.0-100.0); Mean Platelet Volume 10.3 fL (9.4-12.4); Monocytes # 0.7 K/mcL (0.0-1.3); Monocytes % 10.5 %; Neutrophils # 4.6 K/mcL (1.6-8.9); Platelet Count 238 K/mcL (140-400); Red Blood Count 3.83 M/mcL (3.82-4.97); Red Cell Distribution Width 15.6 % (11.5-14.5); Segmented Neutrophils % 70.7 %; White Blood Count 6.5 K/mcL (4.3-11.1)
[2021-03-15 03:12] LABS: INR 1.4; Prothrombin Time 15.4 Seconds (9.4-12.1)
[2021-03-15 03:15] LABS: Activated Partial Thrombo Time 34.4 Seconds (26.0-36.0)
[2021-03-15 03:24] LABS: Calcium 9.6 mg/dL (8.6-10.3); Chol/HDL Ratio 5.7 (0-4.9); Magnesium 1.9 mg/dL (1.6-2.6); Phosphorous 2.6 mg/dL (2.7-4.5); Potassium 4.4 mEq/L (3.5-5.1)
[2021-03-15 03:26] LABS: % Iron Saturation 10 % (15-50); Iron 27 mcg/dL (50-170); Transferrin 203 mg/dL (203-362)
[2021-03-15 03:28] LABS: Basophils % 0.6 %; Eosinophils # 0.2 K/mcL (0.0-0.6); Eosinophils % 3.7 %; Hematocrit 35.5 % (35.3-44.9); Hemoglobin 10.7 g/dL (11.5-15.4); Immature Granulocytes % 0.5 % (0-4); Lymphocytes # 0.9 K/mcL (0.6-4.6); Lymphocytes % 14.3 %; Mean Corpuscular HGB Conc 30.1 g/dL (31.6-35.5); Mean Corpuscular Hemoglobin 27.1 pg (28.0-33.3); Mean Corpuscular Volume 89.9 fL (83.0-100.0); Mean Platelet Volume 10.4 fL (9.4-12.4); Monocytes # 0.6 K/mcL (0.0-1.3); Monocytes % 9.7 %; Neutrophils # 4.5 K/mcL (1.6-8.9); Platelet Count 236 K/mcL (140-400); Red Blood Count 3.95 M/mcL (3.82-4.97); Red Cell Distribution Width 15.5 % (11.5-14.5); Segmented Neutrophils % 71.2 %; White Blood Count 6.3 K/mcL (4.3-11.1)
[2021-03-15 03:45] LABS: Ferritin 104 ng/mL (10-120)
[2021-03-15 03:51] LABS: Folate 15.4 ng/mL (3.0-16.0)
[2021-03-15] MEDS ORDERED: carvediloL 6.25 MG TABLET PO SCH (08:00)
[2021-03-15] MEDS ORDERED: Cyanocobalamin (B-12) 1,000 MCG/ML VIAL SQ ONE (09:16)
[2021-03-15] MEDS: Iron Sucrose Complex 200 MG in 0.9 % Sodium Chloride 100 ML IVPB SCH (09:52)
[2021-03-15] MEDS: Multivit/Ca/Min/Fe/FA 1 TAB TABLET PO SCH (09:52)
[2021-03-15] MEDS: Ringers Solution, Lactated 1,000 ML IVC SCH (09:53)
[2021-03-15 09:55] LABS: Estimated Average Glucose 166 mg/dl; Hemoglobin A1C 7.4 %
[2021-03-15] MEDS ORDERED: Perflutren Lipid Microsphere 1.3 ML in 0.9 % Sodium Chloride 8.7 ML IVP PRN (11:30)
[2021-03-15 12:22] LABS: Bacteria,Urine Few per hpf (None-Few); Bilirubin,Urine Negative (Negative); Blood,Urine Large (Negative); Clarity,Urine Clear (Clear); Color,Urine Light-Yellow (Yellow); Glucose,Urine (UA) Normal (Normal); Hyaline Casts,Urine Few per lpf (None Seen); Ketones,Urine Negative (Negative); Leukocyte Esterase,Urine Moderate (Negative); Nitrite,Urine Negative (Negative); Protein,Urine Trace mg/dL (Neg-Trace); RBC,Urine 30-50 per hpf (0-3); Renal Epithelial Cells,Urine Few per hpf (None-Few); Specific Gravity,Urine 1.011 (1.010-1.025); Transitional Epi Cells,Urine Few per hpf (None-Few); Urobilinogen,Urine Normal (Normal)
[2021-03-15] MEDS ORDERED: Insulin LISPRO 300 UNITS/3 ML VIAL SUBQ SCH (16:30)
[2021-03-15] MEDS: Insulin LISPRO 300 UNITS/3 ML VIAL SUBQ SCH (17:33)
[2021-03-15] MEDS: *HR* HYDROcodone/Acet 5/325 mg TABLET PO PRN (21:20)
[2021-03-15] MEDS: Pantoprazole 40 MG VIAL IVP SCH (21:21)
[2021-03-16] MEDS: Insulin LISPRO 300 UNITS/3 ML VIAL SUBQ SCH ×4 (00:47→16:39)
[2021-03-16 02:59] LABS: Hematocrit 38.7 % (35.3-44.9); Hemoglobin 11.8 g/dL (11.5-15.4); Immature Reticulocyte % 28.2 % (11.0-38.0); Mean Corpuscular HGB Conc 30.5 g/dL (31.6-35.5); Mean Corpuscular Hemoglobin 27.5 pg (28.0-33.3); Mean Corpuscular Volume 90.2 fL (83.0-100.0); Mean Platelet Volume 10.3 fL (9.4-12.4); Platelet Count 241 K/mcL (140-400); Red Blood Count 4.29 M/mcL (3.82-4.97); Red Cell Distribution Width 15.4 % (11.5-14.5); Retculocyte # 0.07 M/mcL (0.05-0.10); Reticulocyte % 1.6 % (1.6-2.8); White Blood Count 5.3 K/mcL (4.3-11.1)
[2021-03-16] MEDS: Pantoprazole 40 MG VIAL IVP SCH ×2 (05:51→17:16)
[2021-03-16] MEDS: Multivit/Ca/Min/Fe/FA 1 TAB TABLET PO SCH (08:57)
[2021-03-16] MEDS: *HR* Metoprolol 5 MG/5 ML VIAL IVP SCH ×3 (09:12→21:17)
[2021-03-16] MEDS ORDERED: D5% in Water 1,000 ML IVC PRN (09:40)
[2021-03-16] MEDS ORDERED: Dextrose Gel 15 GM/37.5 ML TUBE PO PRN (09:40)
[2021-03-16] MEDS: Iron Sucrose Complex 200 MG in 0.9 % Sodium Chloride 100 ML IVPB SCH (10:15)
[2021-03-16] MEDS: Ondansetron 4 MG/2 ML VIAL IVP PRN ×2 (11:20→22:43)
[2021-03-16] MEDS: *HR* HYDROcodone/Acet 5/325 mg TABLET PO PRN (13:38)
[2021-03-17] MEDS: *HR* Metoprolol 5 MG/5 ML VIAL IVP SCH ×2 (03:14→08:11)
[2021-03-17 03:27] LABS: Hematocrit 40.5 % (35.3-44.9); Hemoglobin 12.5 g/dL (11.5-15.4); Mean Corpuscular HGB Conc 30.9 g/dL (31.6-35.5); Mean Corpuscular Hemoglobin 27.8 pg (28.0-33.3); Mean Corpuscular Volume 90.2 fL (83.0-100.0); Mean Platelet Volume 10.6 fL (9.4-12.4); Platelet Count 255 K/mcL (140-400); Red Blood Count 4.49 M/mcL (3.82-4.97); Red Cell Distribution Width 15.3 % (11.5-14.5)
[2021-03-17] MEDS: Pantoprazole 40 MG VIAL IVP SCH (05:54)
[2021-03-17] MEDS: Insulin LISPRO 300 UNITS/3 ML VIAL SUBQ SCH ×3 (07:40→16:55)
[2021-03-17] MEDS: Iron Sucrose Complex 200 MG in 0.9 % Sodium Chloride 100 ML IVPB SCH (08:11)
[2021-03-17] MEDS: Multivit/Ca/Min/Fe/FA 1 TAB TABLET PO SCH (08:11)
[2021-03-17] MEDS: Ondansetron 4 MG/2 ML VIAL IVP PRN ×2 (08:15→15:43)
[2021-03-17] MEDS ORDERED: Simethicone 80 MG TAB.CHEW PO PRN (09:31)
[2021-03-17] MEDS: Apixaban 5 MG TABLET PO SCH ×2 (09:50→19:50)
[2021-03-17] MEDS: Aspirin 81 MG TAB.CHEW PO SCH (10:13)
[2021-03-17] MEDS: Gabapentin 400 MG CAPSULE PO SCH ×2 (16:00→19:51)
[2021-03-18 05:04] LABS: Hematocrit 39.3 % (35.3-44.9); Mean Corpuscular HGB Conc 30.5 g/dL (31.6-35.5); Mean Corpuscular Hemoglobin 27.4 pg (28.0-33.3); Mean Corpuscular Volume 89.7 fL (83.0-100.0); Mean Platelet Volume 10.1 fL (9.4-12.4); Platelet Count 254 K/mcL (140-400); Red Blood Count 4.38 M/mcL (3.82-4.97); Red Cell Distribution Width 15.5 % (11.5-14.5); White Blood Count 7.2 K/mcL (4.3-11.1)
[2021-03-18 05:50] LABS: Lambda Qnt Free Light Chains 42.94 mg/L (5.71-26.30)
[2021-03-18] MEDS: Insulin LISPRO 300 UNITS/3 ML VIAL SUBQ SCH ×3 (07:41→16:46)
[2021-03-18] MEDS: Iron Sucrose Complex 200 MG in 0.9 % Sodium Chloride 100 ML IVPB SCH (09:09)
[2021-03-18] MEDS: Aspirin 81 MG TAB.CHEW PO SCH (09:10)
[2021-03-18] MEDS: Apixaban 5 MG TABLET PO SCH ×2 (09:10→20:36)
[2021-03-18] MEDS: Gabapentin 400 MG CAPSULE PO SCH ×3 (09:10→20:37)
[2021-03-18] MEDS: Multivit/Ca/Min/Fe/FA 1 TAB TABLET PO SCH (09:10)
[2021-03-18] MEDS: lisinopriL 5 MG TABLET PO SCH (09:10)
[2021-03-18] MEDS: *HR* HYDROcodone/Acet 5/325 mg TABLET PO PRN (20:36)
[2021-03-19] MEDS: Insulin LISPRO 300 UNITS/3 ML VIAL SUBQ SCH ×3 (08:00→17:25)
[2021-03-19] MEDS: Gabapentin 400 MG CAPSULE PO SCH ×3 (09:37→19:19)
[2021-03-19] MEDS: Aspirin 81 MG TAB.CHEW PO SCH (09:38)
[2021-03-19] MEDS: Multivit/Ca/Min/Fe/FA 1 TAB TABLET PO SCH (09:38)
[2021-03-19] MEDS: Nitrofurantoin (BID) 100 MG CAPSULE PO SCH ×2 (09:38→16:14)
[2021-03-19] MEDS: lisinopriL 5 MG TABLET PO SCH (09:38)
[2021-03-19] MEDS: Apixaban 5 MG TABLET PO SCH ×2 (09:38→19:20)
[2021-03-19 12:32] LABS: Kappa Qnt Free Light Chains 54.21 mg/L (3.30-19.40)
[2021-03-19] MEDS: *HR* HYDROcodone/Acet 5/325 mg TABLET PO PRN (19:19)
[2021-03-19 21:07] LABS: Hematocrit 34.5 % (35.3-44.9); Hemoglobin 10.5 g/dL (11.5-15.4)
[2021-03-20 03:00] LABS: Calcium 9.5 mg/dL (8.6-10.3); Potassium 4.6 mEq/L (3.5-5.1)
[2021-03-20 03:05] LABS: Hematocrit 33.2 % (35.3-44.9); Hemoglobin 10.3 g/dL (11.5-15.4); Mean Corpuscular Hemoglobin 27.7 pg (28.0-33.3); Mean Corpuscular Volume 89.2 fL (83.0-100.0); Mean Platelet Volume 10.9 fL (9.4-12.4); Platelet Count 252 K/mcL (140-400); Red Blood Count 3.72 M/mcL (3.82-4.97); Red Cell Distribution Width 15.6 % (11.5-14.5); White Blood Count 9.6 K/mcL (4.3-11.1)
[2021-03-20] MEDS: lisinopriL 5 MG TABLET PO SCH (07:05)
[2021-03-20] MEDS: Insulin LISPRO 300 UNITS/3 ML VIAL SUBQ SCH ×3 (08:34→16:00)
[2021-03-20] MEDS: Multivit/Ca/Min/Fe/FA 1 TAB TABLET PO SCH (08:35)
[2021-03-20] MEDS: Gabapentin 400 MG CAPSULE PO SCH ×2 (08:35→16:03)
[2021-03-20] MEDS: Nitrofurantoin (BID) 100 MG CAPSULE PO SCH ×2 (08:35→16:03)
[2021-03-20] MEDS: Apixaban 5 MG TABLET PO SCH ×2 (08:35→20:03)
[2021-03-20] MEDS: Aspirin 81 MG TAB.CHEW PO SCH (08:35)
[2021-03-20 08:58] LABS: Hematocrit 30.7 % (35.3-44.9); Hemoglobin 9.6 g/dL (11.5-15.4)
[2021-03-20 14:17] LABS: Hematocrit 29.5 % (35.3-44.9)
[2021-03-20] MEDS ORDERED: 0.9 % Sodium Chloride 1,000 ML IVC ONE (19:37)
[2021-03-20] MEDS ORDERED: Acetaminophen IV 1,000 MG/100 ML BAG IVPB ONE (19:38)
[2021-03-20] MEDS ORDERED: 0.9 % Sodium Chloride 250 ML ONE (21:19)
[2021-03-20] MEDS: 0.9 % Sodium Chloride 1,000 ML ONE ×3 (21:20→23:24)
[2021-03-20] MEDS ORDERED: 0.9 % Sodium Chloride 1,000 ML ONE ×4 (21:20→21:58)
[2021-03-20 22:22] LABS: Hematocrit 27.6 % (35.3-44.9); Hemoglobin 8.3 g/dL (11.5-15.4)
[2021-03-20 22:36] LABS: Alpha 2 Globulin (PEP) 0.95 g/dL (0.48-1.05); Beta Globulin (PEP) 0.81 g/dL (0.48-1.10)
[2021-03-21 00:50] LABS: Hemoglobin 10.6 g/dL (11.5-15.4); Red Cell Distribution Width 15.9 % (11.5-14.5)
[2021-03-21 00:51] LABS: Hematocrit 33.4 % (35.3-44.9); Mean Corpuscular HGB Conc 31.7 g/dL (31.6-35.5); Mean Corpuscular Hemoglobin 28.3 pg (28.0-33.3); Mean Corpuscular Volume 89.3 fL (83.0-100.0); Mean Platelet Volume 10.4 fL (9.4-12.4); Platelet Count 202 K/mcL (140-400); Red Blood Count 3.74 M/mcL (3.82-4.97)
[2021-03-21] MEDS: 0.9 % Sodium Chloride 1,000 ML IVC SCH ×2 (01:15→08:16)
[2021-03-21] MEDS ORDERED: Morphine Sulfate 2 MG/ML SYRINGE IVP ONE (01:47)
[2021-03-21 02:27] LABS: Calcium 8.7 mg/dL (8.6-10.3); Potassium 4.1 mEq/L (3.5-5.1)
[2021-03-21] MEDS ORDERED: Morphine Sulfate 2 MG/ML SYRINGE IVP PRN (02:29)
[2021-03-21] MEDS ORDERED: *HR* LORazepam 2 MG/ML VIAL IVP PRN (02:29)
[2021-03-21] MEDS ORDERED: Haloperidol Lactate 5 MG/ML VIAL IVP PRN (02:29)
[2021-03-21] MEDS ORDERED: 0.9 % Sodium Chloride 4,000 ML IV ONE (04:00)
[2021-03-21] MEDS: Aspirin 81 MG TAB.CHEW PO SCH (08:19)
[2021-03-21] MEDS: Nitrofurantoin (BID) 100 MG CAPSULE PO SCH (08:19)
[2021-03-21] MEDS: Multivit/Ca/Min/Fe/FA 1 TAB TABLET PO SCH (08:26)
[2021-03-21] MEDS: Insulin LISPRO 300 UNITS/3 ML VIAL SUBQ SCH ×3 (08:29→17:24)
[2021-03-21 11:44] LABS: Acinetobacter baumannii by PCR Not Detected (Not Detect); Candida albicans by PCR Not Detected (Not Detect); Candida glabrata by PCR Not Detected (Not Detect); Candida krusei by PCR Not Detected (Not Detect); Candida parapsilosis by PCR Not Detected (Not Detect); Candida tropicalis by PCR Not Detected (Not Detect); Enterobacter cloacae Cmplx PCR Not Detected (Not Detect); Enterococcus by PCR Not Detected (Not Detect); Escherichia coli by PCR DETECTED (Not Detect); Klebsiella oxytoca by PCR Not Detected (Not Detect); Klebsiella pneumoniae by PCR Not Detected (Not Detect); Proteus by PCR Not Detected (Not Detect); Pseudomonas aeruginosa by PCR Not Detected (Not Detect); Serratia marcescens by PCR Not Detected (Not Detect); Staphylococcus aureus by PCR Not Detected (Not Detect); Staphylococcus by PCR Not Detected (Not Detect); Streptococcus agalactiae(B)PCR Not Detected (Not Detect); Streptococcus by PCR Not Detected (Not Detect); Streptococcus pneumoniae PCR Not Detected (Not Detect); Streptococcus pyogenes (A) PCR Not Detected (Not Detect)
[2021-03-21] MEDS ORDERED: Acetaminophen IV 1,000 MG/100 ML BAG IVPB ONE (22:41)
[2021-03-22 07:07] VITALS: O2SAT 99
[2021-03-22] MEDS: Insulin LISPRO 300 UNITS/3 ML VIAL SUBQ SCH ×2 (08:27→13:08)
[2021-03-22 10:45] LABS: IFE Reflexed NOT DONE
[2021-03-22 11:53] VITALS: BP 137/80; PULSE 71; TEMP 97
[2021-03-22] MEDS: Ondansetron 4 MG/2 ML VIAL IVP PRN (12:21)
[2021-03-22] MEDS ORDERED: Acetaminophen IV 1,000 MG/100 ML BAG IVPB ONE (12:30)
[2021-03-23] MEDS ORDERED: Metoprolol XL (24 HR) Succ 25 MG TAB.ER.24H PO SCH (09:00)
== END 2021-03-22 13:51 | disposition hospice, inpatient (51) | DRG 393 ==
LOC: 3ANU → SUATTDRO 21:03 → 2ANU 03-21 13:18
PROVIDERS: ADMIT Family Medicine; ATTEND Pharmacist

== ENCOUNTER 2021-03-22 12:30 | Inpatient (IN) ==
[2021-03-22] MEDS ORDERED: Acetaminophen 325 MG TABLET PO PRN (12:32)
[2021-03-22] MEDS ORDERED: Haloperidol Lactate 5 MG/ML VIAL IVP PRN (12:32)
[2021-03-22] MEDS ORDERED: *HR* LORazepam 2 MG/ML VIAL IVP PRN (12:32)
[2021-03-22] MEDS ORDERED: Ondansetron 4 MG/2 ML VIAL IVP PRN (12:32)
[2021-03-22] MEDS ORDERED: Acetaminophen 650 MG RECTAL SUPP RC PRN (12:32)
[2021-03-22 18:56] VITALS: BP 112/63; PULSE 85; TEMP 99.7; O2SAT 98
[2021-03-23] MEDS: Morphine Sulfate 2 MG/ML SYRINGE IVP PRN ×2 (02:48→09:22)
== END 2021-03-23 16:39 | DRG 951 ==
LOC: 2ANU 13:53
PROVIDERS: ADMIT Internal Medicine Hospice and Palliative Medicine; ATTEND Internal Medicine Hospice and Palliative Medicine

== ENCOUNTER 2021-03-23 16:08 | Inpatient (IN) ==
[2021-03-23] MEDS ORDERED: Naloxone 0.4 MG/ML INJ IVP PRN (18:00)
[2021-03-23 21:01] LABS: BUN/Creatinine Ratio 37 (6-26); Blood Urea Nitrogen 30 mg/dL (8-23); Calcium 9.2 mg/dL (8.6-10.3); Carbon Dioxide 27 mEq/L (23-29); Chloride 104 mEq/L (98-107); Glucose 145 mg/dL (70-105); Magnesium 1.2 mg/dL (1.6-2.6); Osmolality,Calculated 289 (280-300); Potassium 4.3 mEq/L (3.5-5.1); Sodium 135 mEq/L (136-145); eGFR For African Americans > 60 (> 60); eGFR For Non-African Americans > 60 (> 60)
[2021-03-23] MEDS ORDERED: Acetaminophen 325 MG TABLET PO ONE (21:37)
[2021-03-23 21:46] LABS: Basophils # 0.1 K/mcL (0.0-0.2); Basophils % 0.4 %; Eosinophils # 0.4 K/mcL (0.0-0.6); Hematocrit 34.1 % (35.3-44.9); Hemoglobin 10.3 g/dL (11.5-15.4); Immature Granulocytes % 0.4 % (0-4); Lymphocytes # 0.6 K/mcL (0.6-4.6); Lymphocytes % 3.5 %; Mean Corpuscular HGB Conc 30.2 g/dL (31.6-35.5); Mean Corpuscular Hemoglobin 28.5 pg (28.0-33.3); Mean Corpuscular Volume 94.2 fL (83.0-100.0); Mean Platelet Volume 11.4 fL (9.4-12.4); Monocytes # 0.4 K/mcL (0.0-1.3); Neutrophils # 16.4 K/mcL (1.6-8.9); Platelet Count 151 K/mcL (140-400); Red Blood Count 3.62 M/mcL (3.82-4.97); Red Cell Distribution Width 16.9 % (11.5-14.5); Segmented Neutrophils % 91.7 %; White Blood Count 17.9 K/mcL (4.3-11.1)
[2021-03-23] MEDS ORDERED: Prochlorperazine 10 MG/2 ML VIAL IVP PRN (22:06)
[2021-03-24 02:59] LABS: Basophils # 0.1 K/mcL (0.0-0.2); Basophils % 0.3 %; Eosinophils # 0.1 K/mcL (0.0-0.6); Eosinophils % 0.7 %; Hematocrit 32.2 % (35.3-44.9); Hemoglobin 9.9 g/dL (11.5-15.4); Immature Granulocytes % 0.8 % (0-4); Lymphocytes # 0.3 K/mcL (0.6-4.6); Lymphocytes % 1.6 %; Mean Corpuscular HGB Conc 30.7 g/dL (31.6-35.5); Mean Corpuscular Hemoglobin 27.4 pg (28.0-33.3); Mean Corpuscular Volume 89.2 fL (83.0-100.0); Mean Platelet Volume 11.7 fL (9.4-12.4); Monocytes # 0.5 K/mcL (0.0-1.3); Monocytes % 2.5 %; Neutrophils # 18.1 K/mcL (1.6-8.9); Platelet Count 167 K/mcL (140-400); Red Blood Count 3.61 M/mcL (3.82-4.97); Red Cell Distribution Width 16.6 % (11.5-14.5); Segmented Neutrophils % 94.1 %; White Blood Count 19.2 K/mcL (4.3-11.1)
[2021-03-24 03:21] LABS: BUN/Creatinine Ratio 35 (6-26); Blood Urea Nitrogen 28 mg/dL (8-23); Calcium 9.4 mg/dL (8.6-10.3); Carbon Dioxide 25 mEq/L (23-29); Chloride 101 mEq/L (98-107); Glucose 163 mg/dL (70-105); Osmolality,Calculated 287 (280-300); Potassium 4.2 mEq/L (3.5-5.1); Sodium 134 mEq/L (136-145); eGFR For African Americans > 60 (> 60); eGFR For Non-African Americans > 60 (> 60)
[2021-03-24] MEDS ORDERED: Nystatin Cream 15 GM TUBE TP PRN (07:44)
[2021-03-24] MEDS ORDERED: Nystatin POWDER 30 GM BOTTLE TP PRN (07:44)
[2021-03-24] MEDS ORDERED: *HR* Dextrose 50 % in Water (Syg) 50 ML SYRINGE IVP PRN (07:53)
[2021-03-24] MEDS ORDERED: D5% in Water 1,000 ML IVC PRN (07:53)
[2021-03-24] MEDS ORDERED: Dextrose Gel 15 GM/37.5 ML TUBE PO PRN ×2 (07:53)
[2021-03-24] MEDS: cefTRIAXone 1,000 MG in Water for inj. (sterile) 10 ML IVP SCH (09:31)
[2021-03-24] MEDS: Vitamin B Complex/Vit C/Vit E 1 EACH TABLET PO SCH (09:32)
[2021-03-24] MEDS: Metoprolol XL (24 HR) Succ 25 MG TAB.ER.24H PO SCH (09:32)
[2021-03-24] MEDS: Multivit/Ca/Min/Fe/FA 1 TAB TABLET PO SCH ×2 (09:33→20:54)
[2021-03-24] MEDS: Aspirin 81 MG TAB.CHEW PO SCH (09:33)
[2021-03-24] MEDS: Gabapentin 400 MG CAPSULE PO SCH ×3 (09:33→20:55)
[2021-03-24] MEDS: Insulin LISPRO 300 UNITS/3 ML VIAL SUBQ SCH ×3 (09:34→16:37)
[2021-03-24] MEDS: Acetaminophen 325 MG TABLET PO PRN (09:34)
[2021-03-24] MEDS ORDERED: *HR* HYDROcodone/Acet 5/325 mg TABLET PO PRN (11:27)
[2021-03-24] MEDS: *HR* Heparin 5,000 UNIT/ML VIAL SQ SCH ×2 (15:48→20:55)
[2021-03-25 02:16] LABS: Basophils # 0.1 K/mcL (0.0-0.2); Basophils % 0.6 %; Eosinophils # 0.2 K/mcL (0.0-0.6); Eosinophils % 1.7 %; Hematocrit 33.1 % (35.3-44.9); Lymphocytes % 7.3 %; Mean Corpuscular HGB Conc 30.2 g/dL (31.6-35.5); Mean Corpuscular Hemoglobin 27.5 pg (28.0-33.3); Mean Corpuscular Volume 91.2 fL (83.0-100.0); Mean Platelet Volume 11.5 fL (9.4-12.4); Monocytes # 1.3 K/mcL (0.0-1.3); Neutrophils # 10.5 K/mcL (1.6-8.9); Platelet Count 169 K/mcL (140-400); Red Blood Count 3.63 M/mcL (3.82-4.97); Red Cell Distribution Width 17.1 % (11.5-14.5); Segmented Neutrophils % 79.4 %; White Blood Count 13.2 K/mcL (4.3-11.1)
[2021-03-25 02:35] LABS: BUN/Creatinine Ratio 28 (6-26); Blood Urea Nitrogen 27 mg/dL (8-23); Calcium 9.7 mg/dL (8.6-10.3); Carbon Dioxide 29 mEq/L (23-29); Chloride 103 mEq/L (98-107); Glucose 156 mg/dL (70-105); Osmolality,Calculated 296 (280-300); Potassium 4.3 mEq/L (3.5-5.1); Sodium 139 mEq/L (136-145); eGFR For African Americans > 60 (> 60); eGFR For Non-African Americans 59 (> 60)
[2021-03-25] MEDS: *HR* Heparin 5,000 UNIT/ML VIAL SQ SCH ×3 (05:42→20:36)
[2021-03-25] MEDS: Aspirin 81 MG TAB.CHEW PO SCH (08:23)
[2021-03-25] MEDS: Vitamin B Complex/Vit C/Vit E 1 EACH TABLET PO SCH (08:23)
[2021-03-25] MEDS: Gabapentin 400 MG CAPSULE PO SCH ×3 (08:23→20:35)
[2021-03-25] MEDS: cefTRIAXone 1,000 MG in Water for inj. (sterile) 10 ML IVP SCH (08:24)
[2021-03-25] MEDS: Multivit/Ca/Min/Fe/FA 1 TAB TABLET PO SCH ×2 (08:24→20:36)
[2021-03-25] MEDS: Metoprolol XL (24 HR) Succ 25 MG TAB.ER.24H PO SCH ×2 (08:24→17:09)
[2021-03-25] MEDS: Insulin LISPRO 300 UNITS/3 ML VIAL SUBQ SCH ×3 (08:25→17:10)
[2021-03-25] MEDS: Morphine Sulfate 2 MG/ML SYRINGE IVP PRN (18:32)
[2021-03-25] MEDS ORDERED: Metoprolol XL (24 HR) Succ 25 MG TAB.ER.24H PO SCH (21:00)
[2021-03-26] MEDS: *HR* Heparin 5,000 UNIT/ML VIAL SQ SCH ×3 (05:27→19:21)
[2021-03-26] MEDS: Morphine Sulfate 2 MG/ML SYRINGE IVP PRN (07:34)
[2021-03-26] MEDS: cefTRIAXone 1,000 MG in Water for inj. (sterile) 10 ML IVP SCH (07:34)
[2021-03-26] MEDS: Multivit/Ca/Min/Fe/FA 1 TAB TABLET PO SCH ×2 (07:35→19:27)
[2021-03-26] MEDS: Metoprolol XL (24 HR) Succ 25 MG TAB.ER.24H PO SCH ×2 (07:35→19:28)
[2021-03-26] MEDS: Vitamin B Complex/Vit C/Vit E 1 EACH TABLET PO SCH (07:35)
[2021-03-26] MEDS: Aspirin 81 MG TAB.CHEW PO SCH (07:35)
[2021-03-26] MEDS: Gabapentin 400 MG CAPSULE PO SCH ×3 (07:35→19:28)
[2021-03-26] MEDS: Insulin LISPRO 300 UNITS/3 ML VIAL SUBQ SCH ×3 (07:36→16:35)
[2021-03-26] MEDS ORDERED: *HR* LORazepam 2 MG/ML VIAL IVP PRN (15:36)
[2021-03-26] MEDS ORDERED: Haloperidol Lactate 5 MG/ML VIAL IVP PRN (15:36)
[2021-03-27] MEDS: *HR* Heparin 5,000 UNIT/ML VIAL SQ SCH ×3 (05:20→21:38)
[2021-03-27] MEDS: Insulin LISPRO 300 UNITS/3 ML VIAL SUBQ SCH ×3 (09:26→17:00)
[2021-03-27] MEDS: Multivit/Ca/Min/Fe/FA 1 TAB TABLET PO SCH ×2 (09:27→21:37)
[2021-03-27] MEDS: Metoprolol XL (24 HR) Succ 25 MG TAB.ER.24H PO SCH ×2 (09:27→21:37)
[2021-03-27] MEDS: Vitamin B Complex/Vit C/Vit E 1 EACH TABLET PO SCH (09:27)
[2021-03-27] MEDS: Aspirin 81 MG TAB.CHEW PO SCH (09:27)
[2021-03-27] MEDS: Gabapentin 400 MG CAPSULE PO SCH ×3 (09:27→21:37)
[2021-03-28] MEDS: *HR* Heparin 5,000 UNIT/ML VIAL SQ SCH ×3 (05:42→20:23)
[2021-03-28] MEDS: Morphine Sulfate 2 MG/ML SYRINGE IVP PRN (05:42)
[2021-03-28] MEDS ORDERED: *HR* LORazepam Oral Conc 2 MG/ML SL PRN (07:10)
[2021-03-28] MEDS: Gabapentin 400 MG CAPSULE PO SCH ×3 (08:55→20:52)
[2021-03-28] MEDS: Multivit/Ca/Min/Fe/FA 1 TAB TABLET PO SCH ×2 (08:55→20:23)
[2021-03-28] MEDS: Vitamin B Complex/Vit C/Vit E 1 EACH TABLET PO SCH (08:55)
[2021-03-28] MEDS: Aspirin 81 MG TAB.CHEW PO SCH (08:56)
[2021-03-28] MEDS: Metoprolol XL (24 HR) Succ 25 MG TAB.ER.24H PO SCH ×2 (09:08→20:17)
[2021-03-28] MEDS: Insulin LISPRO 300 UNITS/3 ML VIAL SUBQ SCH ×3 (10:31→17:07)
[2021-03-28] MEDS: Morphine Sulfate Oral CONC 10 MG/0.5 ML ORAL.SYG SL PRN (11:39)
[2021-03-28 20:17] VITALS: O2SAT 94
[2021-03-29] MEDS: Morphine Sulfate Oral CONC 10 MG/0.5 ML ORAL.SYG SL PRN ×2 (00:23→08:15)
[2021-03-29] MEDS: *HR* Heparin 5,000 UNIT/ML VIAL SQ SCH (06:03)
[2021-03-29 07:52] VITALS: BP 101/63; PULSE 168; TEMP 102.7
[2021-03-29] MEDS: Aspirin 81 MG TAB.CHEW PO SCH (08:16)
[2021-03-29] MEDS: Metoprolol XL (24 HR) Succ 25 MG TAB.ER.24H PO SCH (08:16)
[2021-03-29] MEDS: Acetaminophen 325 MG TABLET PO PRN (08:16)
[2021-03-29] MEDS: Multivit/Ca/Min/Fe/FA 1 TAB TABLET PO SCH (08:16)
[2021-03-29] MEDS: Vitamin B Complex/Vit C/Vit E 1 EACH TABLET PO SCH (08:17)
[2021-03-29] MEDS: Insulin LISPRO 300 UNITS/3 ML VIAL SUBQ SCH ×2 (08:17→13:31)
[2021-03-29] MEDS: Gabapentin 400 MG CAPSULE PO SCH (08:17)
== END 2021-03-29 15:46 | disposition hospice, inpatient (51) | DRG 871 ==
LOC: 2ANU 16:42 → SUATTDRO 16:42
PROVIDERS: ADMIT Hospitalist; ATTEND Internal Medicine

== ENCOUNTER 2021-03-29 12:34 | Inpatient (IN) ==
[2021-03-29] MEDS ORDERED: Acetaminophen 650 MG RECTAL SUPP RC PRN (14:21)
[2021-03-30] MEDS: Morphine Sulfate Oral CONC 10 MG/0.5 ML ORAL.SYG SL PRN ×3 (10:30→20:12)
[2021-03-30] MEDS: *HR* LORazepam Oral Conc 2 MG/ML SL PRN ×2 (12:51→20:47)
[2021-03-30] MEDS ORDERED: Morphine Sulfate Oral CONC 10 MG/0.5 ML ORAL.SYG SL PRN ×2 (13:18→13:20)
[2021-03-31] MEDS: Morphine Sulfate Oral CONC 10 MG/0.5 ML ORAL.SYG SL PRN ×2 (08:51→14:21)
[2021-03-31] MEDS: *HR* LORazepam Oral Conc 2 MG/ML SL PRN ×2 (08:51→14:21)
[2021-04-01] MEDS: Morphine Sulfate Oral CONC 10 MG/0.5 ML ORAL.SYG SL PRN ×7 (02:58→23:36)
[2021-04-01] MEDS: *HR* LORazepam Oral Conc 2 MG/ML SL PRN ×3 (08:34→23:36)
[2021-04-01 23:37] VITALS: BP 57/20; PULSE 129; TEMP 97.7; O2SAT 79
[2021-04-01] MEDS: Atropine 1% Opth Drops 100 DROP/5 ML BOTTLE SL PRN (23:37)
[2021-04-02] MEDS: Morphine Sulfate Oral CONC 10 MG/0.5 ML ORAL.SYG SL PRN ×2 (02:19→05:02)
[2021-04-02] MEDS: *HR* LORazepam Oral Conc 2 MG/ML SL PRN ×2 (02:20→05:01)
[2021-04-02] MEDS: Atropine 1% Opth Drops 100 DROP/5 ML BOTTLE SL PRN ×2 (04:07→05:57)
== END 2021-04-02 07:45 | disposition expired | DRG 951 ==
LOC: 2ANU 15:50
PROVIDERS: ADMIT Internal Medicine Hospice and Palliative Medicine; ATTEND Internal Medicine Hospice and Palliative Medicine